=== PATIENT | female | born 1945 | race Caucasian/White ===

== ENCOUNTER 2021-09-03 10:31 | Inpatient (IN) ==
[2021-09-03] MEDS ORDERED: SODIUM CHLORIDE 0.9% 1000ML 1,000 ML IV ONE (11:17)
--- NOTE | 2021-09-03 11:36 | XRay Report ---
XR chest 1V portable CLINICAL HISTORY: Atypical chest pain. COMPARISON STUDY: Chest radiograph August 18, 2021. Chest CT June 11, 2021. PET/CT July 16, 2021. FINDINGS: Left internal jugular [id number] is in place. Cardiac size is normal. Mediastinal contou rs are normal. Left pneumothorax shown on prior exam has resolved. No consolidation to suggest pneumo pedrito. The small left lower lobe pulmonary nodule shown on prior PET/CT is not evident on this exam, po ssibly due to technique. IMPRESSION: No acute cardiopulmonary findings. ACT 112: Negative or not required by law. Electronically signed by: Leo Vallejo M.D. 09/03/2021 11:34 AM
[2021-09-03 12:24] LABS: Basophils # (auto) 0.04 K/uL (0-0.2); Basophils % (auto) 0.5 %; Eosinophils # (auto) 0.23 K/uL (0-0.5); Hematocrit (blood only) 45.1 % (37-47); Hemoglobin 14.6 g/dL (12.0-16.0); Immature Granulocytes # (auto) 0.01 K/uL (0.00-0.02); Immature Granulocytes % (auto) 0.1 %; Lymphocytes # (auto) 0.71 K/uL (1.2-3.4); Lymphocytes % (auto) 9.1 %; Mean Corpuscular Hemoglobin 30.5 pg (25-34); Mean Corpuscular Hgb Conc 32.4 g/dL (32-36); Mean Corpuscular Volume 94.2 fL (80-100); Mean Platelet Volume 11.5 fL (7.4-10.4); Monocytes # (auto) 0.45 K/uL (0.11-0.59); Monocytes % (auto) 5.8 %; Neutrophils # (auto) 6.32 K/uL (1.4-6.5); Neutrophils % (auto) 81.5 %; Platelet Count 215 K/uL (130-400); RDW Coefficient of Variation 18.9 % (11.5-14.5); RDW Standard Deviation 64.8 fL (36.4-46.3); Red Blood Count 4.79 M/uL (4.2-5.4); White Blood Count 7.76 K/uL (4.8-10.8)
--- NOTE | 2021-09-03 12:36 | CT Scan Report ---
CT OF THE HEAD WITHOUT CONTRAST CLINICAL HISTORY: ams, fall COMPARISON STUDY: MRI of the brain January 03, 2020. CT DOSE: 537.48 mGy.cm TECHNIQUE: Helical axial images of the head were obtained without IV contrast. Automated exposure con trol was utilized for the study. A dose lowering technique was utilized adhering to the principles o f ALARA. FINDINGS: No acute intracranial hemorrhage is present. Ventricular system is unremarkable. Basal cist erns are patent. There are no extra axial collections. A 1.3 cm left occipital lobe hypodensity on ax ial image 13 of 28 is noted. There is an equivocal small hypodensity within left frontal lobe on axia l image 18. This may be artifactual. There is no significant mass effect. No midline shift. No signif icant calvarial abnormalities. Minimal polypoid sinus mucosal thickening is present. IMPRESSION: 1. No acute intracranial hemorrhage or mass effect. 2. 1.3 cm left occipital lobe hypodensity. This finding is nonspecific and differential consideratio ns include an age indeterminate infarct although this does not appear to extend to the cortex. An und erlying lesion cannot be excluded given the history of malignancy. An MRI of the brain with and witho ut contrast is recommended for further evaluation. 3. Small left frontal lobe hypodensity which is likely artifactual but can be assessed on follow-up M RI. ACT 112: Negative or not required by law. Electronically signed by: Leo Vallejo M.D. 09/03/2021 12:34 PM
[2021-09-03 12:44] LABS: INR 1.1 (0.9-1.1); Prothrombin Time 11.5 Seconds (9.0-12.0)
[2021-09-03 12:47] LABS: Thyroid Stimulating Hormone 4.783 uIu/ml (0.300-4.500); Troponin I High Sensitivity 76.7 pg/ml (0-14)
[2021-09-03 12:50] LABS: Albumin Globulin Ratio 1.5 (0.9-2); Albumin Level 4.1 gm/dl (3.4-5.0); BUN Creatinine Ratio 15.4 (10-20); Bilirubin,Total 0.8 mg/dl (0.2-1.0); Calcium 10.4 mg/dl (8.5-10.1); Creatinine Clr Calc Pharmacy 50.1 ml/min; Est GFR (African American) 71.5 ml/min; Est GFR (Non-African American) 61.7 ml/min; Globulin 2.8 gm/dl (2.5-4.0); Phosphorus 3.1 mg/dl (2.5-4.9); Potassium 3.9 mmol/L (3.5-5.1); Total Protein 6.9 gm/dl (6.0-8.3)
[2021-09-03 13:19] LABS: T4 Free Thyroxine 0.81 ng/dl (0.61-1.60)
--- NOTE | 2021-09-03 14:46 | Emergency Department Note ---
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 She reports her mother was doing okay yesterday and describes that she had been treated with IV fluids and oral medications to lower her calcium this past week. Otherwise denied fevers, chills, cough congestion, GI or symptoms. Patient reports that the patient's mental status is not yet back to baseline as she has appeared confused at times and has word finding difficulties which is what had led them to diagnose her with hypercalcemia this past week. On arrival, the patient is fatigued appearing but no distress, afebrile stable vital signs. She is alert and oriented to self place time and situation. She does have intermittent difficulty with word finding but no overt aphasia. She appears clinically dry. She has no focal motor deficits. EKG without overt acute ischemia. Chest x-ray negative for acute cardiopulmonary process. WBC, H/H and platelets within normal limits. Chemistry without metabolic acidosis. Magnesium is 1.0 with repletion initiated. Calcium is 10.4, improved from 11.82 days ago. Electrolytes otherwise without significant abnormality. CPK was within normal limits. Initial high-sensitivity troponin was elevated at 76.7, nonspecific. TSH is 4.7 however free T4 within normal limits. Lipase is not elevated. Covid-19 RNA, NAAT negative. CT of the head demonstrates a nonspecific 1.3 cm left occipital hypodensity whic h may represent an age indeterminate infarct however given the patient's metastatic cancer malignancy is also considered. Acute CVA less likely given symptoms have been fluctuating this week and did improve upon treatment of hypercalcemia. The patient's fall with change in mental status from baseline in the setting of her electrolyte abnormalities and elevated troponin reasonable to admit the karli ent for further management. Case was d/w LILIA Sood hospitalist who will evaluate the patient for admission. Triage Nursing notes reviewed and agree them. Prior medical records reviewed Vital Signs: reviewed and remarkable for no significant abnormalities Differential diagnosis: Infection, dehydration, metabolic abnormality, hypo/hyperglycemia, electrolyte disturbance, anemia, hypoxia, cardiac sources, intracerebral event, toxicologic, neurologic, as well as other pathologies. ER treatment provided: See below. Diagnostics interpreted by me: ECG: Sinus tachycardia, 108 bpm, PSVC's, no overt ST elevation or depression, QTC 450, QRS 80. Cardiac Monitoring: An order for continuous cardiac monitoring was placed and demonstrated Sinus tachycardia, 108 bpm, PSVC's Laboratory studies: See below Imaging studies: See below Consultation(s): LILIA Sood hospitalist who will evaluate the patient for admission. 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 She reports her mother was doing okay yesterday and describes that she had been treated with IV fluids and oral medications to lower her calcium this past week. Otherwise denied fevers, chills, cough congestion, GI or symptoms. Patient reports that the patient's mental status is not yet back to baseline as she has appeared confused at times and has word finding difficulties which is what had led them to diagnose her with hypercalcemia this past week. ROS: See above HPI for pertinent positives & negatives. A total of 10 systems reviewed and were otherwise negative. VITALS:See Below PHYSICAL EXAMINATION: GENERAL: Awake, alert, fatigued-appearing, in no distress HENT: Normocephalic, atraumatic. Oropharynx with dry mucous membranes and otherwise unremarkable. EYES: Normal conjunctiva. Sclera non-icteric. EOMI. No nystamgus. PEARRL. NECK: Supple. No nuchal rigidity. FROM. No JVD. RESPIRATORY: Clear to auscultation. CARDIAC: Regular rate, normal rhythm. Extremities warm and well perfused. Pulses equal. ABDOMEN: Soft, non-distended. No tenderness to palpation. No rebound or guarding. No masses. RECTAL: Deferred. MUSCULOSKELETAL: Chest examination reveals no tenderness. The back is symmetrical on inspection without obvious abnormality. No midline CTL spine tenderness to palpation or step-offs. There is no CVA tenderness to palpation. No joint edema. Pelvis is stable with hips with full range of motion. LOWER EXTREMITIES: Calves are equal size bilaterally and non-tender. No edema. No discoloration. NEURO: Alert and oriented to self place and situation, though mildly confused. Intermittent difficulty with word finding but no overt aphasia. No focal motor deficits. SKIN: Mild erythema of the mid thoracic region and base of the neck which is blanchable and nontender. No rash or jaundice noted. ED COURSE: Critical Care: I have personally spent greater than 35 minutes of critical care time in the direct management of this patient. This includes bedside care, interpretation of diagnostic studies, and testing, discussion with consultants, patient, and family members, and other required patient management activities. This 35 minutes is in excess of all separately billable procedures. Pino Wood MD Past Med/Surg History Medical History Anxiety no medications Carcinoma of ovary, stage 4 Has had MRI & PET scans. Depression no medications DVT (deep venous thrombosis) Left leg. Dx'ed November 2019. On Eliquis Dyspnea Endometrial adenocarcinoma Left hip pain Lung nodule Mediastinal lymphadenopathy Metastatic cancer to lung Multiple pulmonary nodules determined by computed tomography of lung Presumed metastatic disease Peritoneal carcinomatosis Pneumothorax Shortness of breath on exertion Shortness of breath on exertion Surgical History History of arthroscopy of right knee History of bronchoscopy with lymph biopsy History of colonoscopy History of tonsillectomy History of tooth extraction Port-A-Cath in place (01/17/20) Insertion of Mediport with Fluoroscopy Dr. Thomas 01/17/20 Family History Mother Colorectal cancer Other Cancer No family history of adverse response to anesthesia Social History Smoking Status: Former smoker Tobacco Type: Cigarettes packs per day: 1; Years Smoked: 40; Cigarettes Per Day: 20; Number of Years Since Quit: 8; Second Hand Exposure: No; Hx Alcohol Use: Yes (Stopped when placed on Eliquis) Alcohol type: wine Hx Substance Use: No Preferred Language: Khmer Communication Ability: Effective Internet Media Planner Required: No Beliefs That Will Affect Care: None Current Living Situation: Spouse Current Living Situation Comment: [facility] current occupational status: retired How many Children do You have: 2 Feels Safe at Home: Yes Assistive Devices: Glasses Allergies Allergies Allergy/AdvReac Type Severity Reaction Status Date / Time No Known Allergies Allergy Verified 09/03/21 15:43 Home Meds Home Medications Medication Instructions Recorded Confirmed calcium carbonate 200 mg calcium 200 mg PO BID PRN 12/18/19 09/03/21 (500 mg) chewable tablet (Tums) cetirizine 10 mg tablet (Zyrtec) 10 mg PO QAM PRN 12/18/19 09/03/21 diphenhydramine 25 1 tab PO HS PRN tab 12/18/19 09/03/21 mg-acetaminophen 500 mg tablet (Tylenol PM Extra Strength) multivitamin 1 tab PO QAM 12/18/19 09/03/21 apixaban 5 mg tablet (Eliquis) 5 mg PO BID 01/11/20 09/03/21 metronidazole 1 % topical cream 1 applic TOPICAL DAILY PRN 01/11/20 09/03/21 (Noritate) albuterol sulfate 90 mcg/actuation 1 - 2 inh INHALATION QID PRN 09/03/21 09/03/21 breath activated powder inhaler alprazolam 0.5 mg tablet 0.5 mg PO .DAILY UD 09/03/21 09/03/21 fluticasone propionate 50 2 spray INTRANASAL DAILY PRN 09/03/21 09/03/21 mcg/actuation nasal spray,suspension (Flonase Allergy Relief) lenvatinib 20 mg/day (10 mg x 2) 40 mg PO DAILY 09/03/21 09/03/21 capsule (Lenvima) oxycodone 5 mg tablet 5 mg PO Q4 PRN 09/03/21 09/03/21 Results & Data (ED) Vital Signs Vital Signs - 24 hr 09/03/21 10:37 09/03/21 10:54 09/03/21 11:00 Temperature 36.5 C Temperature Source Oral Pulse Rate 113 H 111 H 101 H Pulse Rate [Right Finger] Pulse Rate from SpO2 Sensor 114 H Pulse Rhythm Regular Pulse Rhythm [Right Finger] Pulse Strength Normal Pulse Strength [Right Finger] Respiratory Rate 24 20 25 H Respiratory Effort / Characteristics Non-Labored Spontaneous Respiratory Depth Normal Respiratory Pattern Regular Blood Pressure 147/93 H 138/85 Blood Pressure [Right Arm] Blood Pressure Mean 111 102 Blood Pressure Mean [Right Arm] Blood Pressure Position Sitting Blood Pressure Position [Right Arm] Pulse Oximetry 95 96 Oxygen Delivery Method Room Air Sepsis Recent Fever Within 48 Hours No Sepsis New/Unexplained Change in Mental Status N/A Sepsis Action Taken by Nursing No Action Required 09/03/21 11:20 09/03/21 11:30 09/03/21 11:39 Temperature Temperature Source Pulse Rate 101 H 93 H Pulse Rate [Right Finger] Pulse Rate from SpO2 Sensor 88 Pulse Rhythm Pulse Rhythm [Right Finger] Pulse Strength Pulse Strength [Right Finger] Respiratory Rate 23 20 Respiratory Effort / Characteristics Respiratory Depth Respiratory Pattern Blood Pressure 123/78 Blood Pressure [Right Arm] Blood Pressure Mean 93 Blood Pressure Mean [Right Arm] Blood Pressure Position Blood Pressure Position [Right Arm] Pulse Oximetry 91 Oxygen Delivery Method Room Air Sepsis Recent Fever Within 48 Hours Sepsis New/Unexplained Change in Mental Status Sepsis Action Taken by Nursing 09/03/21 12:00 09/03/21 12:30 09/03/21 15:00 Temperature Temperature Source Pulse Rate 85 86 Pulse Rate [Right Finger] 87 Pulse Rate from SpO2 Sensor 89 Pulse Rhythm Pulse Rhythm [Right Finger] Regular Pulse Strength Pulse Strength [Right Finger] Normal Respiratory Rate 21 22 19 Respiratory Effort / Characteristics Non-Labored Respiratory Depth Normal Respiratory Pattern Regular Blood Pressure 123/68 Blood Pressure [Right Arm] 111/83 Blood Pressure Mean 86 Blood Pressure Mean [Right Arm] 92 Blood Pressure Position Blood Pressure Position [Right Arm] Lying Pulse Oximetry 93 95 Oxygen Delivery Method Room Air Sepsis Recent Fever Within 48 Hours Sepsis New/Unexplained Change in Mental Status Sepsis Action Taken by Nursing 09/03/21 17:00 Temperature Temperature Source Pulse Rate Pulse Rate [Right Finger] 77 Pulse Rate from SpO2 Sensor Pulse Rhythm Pulse Rhythm [Right Finger] Regular Pulse Strength Pulse Strength [Right Finger] Normal Respiratory Rate 18 Respiratory Effort / Characteristics Non-Labored Respiratory Depth Normal Respiratory Pattern Regular Blood Pressure Blood Pressure [Right Arm] 113/62 Blood Pressure Mean Blood Pressure Mean [Right Arm] 79 Blood Pressure Position Blood Pressure Position [Right Arm] Lying Pulse Oximetry 97 Oxygen Delivery Method Room Air Sepsis Recent Fever Within 48 Hours Sepsis New/Unexplained Change in Mental Status Sepsis Action Taken by Nursing Laboratory Data Attestation: I reviewed the patient's lab results. Result diagrams: 09/03/21 Unknown 09/03/21 Unknown Lab Results 09/03/21 09/03/21 09/03/21 Range/Units 15:48 16:25 Unknown WBC (4.8-10.8) K/uL RBC (4.2-5.4) M/uL Hgb (12.0-16.0) g/dL Hct (37-47) % MCV (80-100) fL MCH (25-34) pg MCHC (32-36) g/dL RDW Std Deviation (36.4-46.3) fL RDW Coeff of Colleen (11.5-14.5) % Plt Count (130-400) K/uL MPV (7.4-10.4) fL Immature Gran % (Auto) % Neut % (Auto) % Lymph % (Auto) % Wetzel % (Auto) % Eos % (Auto) % Baso % (Auto) % Neut # (Auto) (1.4-6.5) K/uL Lymph # (Auto) (1.2-3.4) K/uL Wetzel # (Auto) (0.11-0.59) K/uL Eos # (Auto) (0-0.5) K/uL Baso # (Auto) (0-0.2) K/uL Immature Gran # (Auto) (0.00-0.02) K/uL PT (9.0-12.0) Seconds INR (0.9-1.1) Sodium 137 (136-145) mmol/L Potassium 3.9 (3.5-5.1) mmol/L Chloride 100 (98-107) mmol/L Carbon Dioxide 24 (21-32) mmol/L Anion Gap 13 H (3-11) BUN 14 (6-23) mg/dl Creatinine 0.91 (0.6-1.2) mg/dl Est Cr Clr Drug Dosing 50.1 ml/min Est GFR ( Amer) 71.5 ml/min Est GFR (Non-Af Amer) 61.7 ml/min BUN/Creatinine Ratio 15.4 (10-20) Glucose 84 (70-99(Fasting)) mg/dl Calcium 10.4 H (8.5-10.1) mg/dl Ionized Calcium 1.22 (1.12-1.32) mmol/L Phosphorus 3.1 (2.5-4.9) mg/dl Magnesium 1.0 L (1.7-2.4) mg/dl Total Bilirubin 0.8 (0.2-1.0) mg/dl AST 39 (13-39) U/L ALT 27 (7-52) U/L Alkaline Phosphatase 112 H (34-104) U/L Total Creatine Kinase 89 (26-192) U/L Troponin I High Sens 76.7 H* (0-14) pg/ml Total Protein 6.9 (6.0-8.3) gm/dl Albumin 4.1 (3.4-5.0) gm/dl Globulin 2.8 (2.5-4.0) gm/dl Albumin/Globulin Ratio 1.5 (0.9-2) Lipase 28 (11-82) U/L TSH (0.300-4.500) uIu/ml Free T4 (0.61-1.60) ng/dl SARS-CoV-2, RNA, NAAT NEGATIVE (NEGATIVE) 09/03/21 09/03/21 09/03/21 Range/Units Unknown Unknown Unknown WBC 7.76 (4.8-10.8) K/uL RBC 4.79 (4.2-5.4) M/uL Hgb 14.6 (12.0-16.0) g/dL Hct 45.1 (37-47) % MCV 94.2 (80-100) fL MCH 30.5 (25-34) pg MCHC 32.4 (32-36) g/dL RDW Std Deviation 64.8 H (36.4-46.3) fL RDW Coeff of Colleen 18.9 H (11.5-14.5) % Plt Count 215 (130-400) K/uL MPV 11.5 H (7.4-10.4) fL Immature Gran % (Auto) 0.1 % Neut % (Auto) 81.5 % Lymph % (Auto) 9.1 % Wetzel % (Auto) 5.8 % Eos % (Auto) 3.0 % Baso % (Auto) 0.5 % Neut # (Auto) 6.32 (1.4-6.5) K/uL Lymph # (Auto) 0.71 L (1.2-3.4) K/uL Wetzel # (Auto) 0.45 (0.11-0.59) K/uL Eos # (Auto) 0.23 (0-0.5) K/uL Baso # (Auto) 0.04 (0-0.2) K/uL Immature Gran # (Auto) 0.01 (0.00-0.02) K/uL PT 11.5 (9.0-12.0) Seconds INR 1.1 (0.9-1.1) Sodium (136-145) mmol/L Potassium (3.5-5.1) mmol/L Chloride (98-107) mmol/L Carbon Dioxide (21-32) mmol/L Anion Gap (3-11) BUN (6-23) mg/dl Creatinine (0.6-1.2) mg/dl Est Cr Clr Drug Dosing ml/min Est GFR ( Amer) ml/min Est GFR (Non-Af Amer) ml/min BUN/Creatinine Ratio (10-20) Glucose (70-99(Fasting)) mg/dl Calcium (8.5-10.1) mg/dl Ionized Calcium (1.12-1.32) mmol/L Phosphorus (2.5-4.9) mg/dl Magnesium (1.7-2.4) mg/dl Total Bilirubin (0.2-1.0) mg/dl AST (13-39) U/L ALT (7-52) U/L Alkaline Phosphatase (34-104) U/L Total Creatine Kinase (26-192) U/L Troponin I High Sens (0-14) pg/ml Total Protein (6.0-8.3) gm/dl Albumin (3.4-5.0) gm/dl Globulin (2.5-4.0) gm/dl Albumin/Globulin Ratio (0.9-2) Lipase (11-82) U/L TSH 4.783 H (0.300-4.500) uIu/ml Free T4 0.81 (0.61-1.60) ng/dl SARS-CoV-2, RNA, NAAT (NEGATIVE) Administered Medications Discontinued Medications Sodium Chloride (Nss 1000ml) 1,000 mls @ 999 mls/hr IV .Q1H1M ONE Stop: 09/03/21 12:17 Last Infusion: 09/03/21 12:43 Dose: 0 mls/hr Documented by: [id number] Admin: 09/03/21 11:42 Dose: 999 mls/hr Documented by: [id number] Magnesium Sulfate/Dextrose (Magnesium Sulfate / D5w) 1 gm in 100 mls @ 100 mls/hr IV Q1H CODY Stop: 09/03/21 16:40 Last Admin: 09/03/21 16:43 Dose: 100 mls/hr Documented by: [id number] Infusion: 09/03/21 16:43 Dose: 100 mls/hr Documented by: [id number] Admin: 09/03/21 15:52 Dose: 100 mls/hr Documented by: [id number] Imaging Data Radiologist's Impression: Head CT 09/03/21 11:14 CT OF THE HEAD WITHOUT CONTRAST CLINICAL HISTORY: ams, fall COMPARISON STUDY: MRI of the brain January 03, 2020. CT DOSE: 537.48 mGy.cm TECHNIQUE: Helical axial images of the head were obtained without IV contrast. Automated exposure control was utilized for the study. A dose lowering technique was utilized adhering to the principles of ALARA. FINDINGS: No acute intracranial hemorrhage is present. Ventricular system is unremarkable. Basal cisterns are patent. There are no extra axial collections. A 1.3 cm left occipital lobe hypodensity on axial image 13 of 28 is noted. There is an equivocal small hypodensity within left frontal lobe on axial image 18. This may be artifactual. There is no significant mass effect. No midline shift. No significant calvarial abnormalities. Minimal polypoid sinus mucosal thickening is present. IMPRESSION: 1. No acute intracranial hemorrhage or mass effect. 2. 1.3 cm left occipital lobe hypodensity. This finding is nonspecific and differential considerations include an age indeterminate infarct although this does not appear to extend to the cortex. An underlying lesion cannot be excluded given the history of malignancy. An MRI of the brain with and without contrast i s recommended for further evaluation. 3. Small left frontal lobe hypodensity which is likely artifactual but can be assessed on follow-up MRI. ACT 112: Negative or not required by law. Electronically signed by: Leo Vallejo M.D. 09/03/2021 12:34 PM Chest X-Ray 09/03/21 11:15 XR chest 1V portable CLINICAL HISTORY: Atypical chest pain. COMPARISON STUDY: Chest radiograph August 18, 2021. Chest CT June 11, 2021. PET/CT July 16, 2021. FINDINGS: Left internal jugular [id number] is in place. Cardiac size is normal. Mediastinal contours are normal. Left pneumothorax shown on prior exam has resolved. No consolidation to suggest pneumonia. The small left lower lobe pulmonary nodule shown on prior PET/CT is not evident on this exam, possibly due to technique. IMPRESSION: No acute cardiopulmonary findings. ACT 112: Negative or not required by law. Electronically signed by: Leo Vallejo M.D. 09/03/2021 11:34 AM Hip/Pelvis X-Ray 09/03/21 16:19 XR hip RT 2V w pelvis CLINICAL HISTORY: Fall, right hip pain TECHNIQUE: 2 views of the right hip and single frontal view of the pelvis were obtained. Comparison: Comparison is made to hip radiographs 12/05/2019 FINDINGS: There is no evidence of an acute fracture. Joint spaces are well-preserved. No soft tissue abnormality is seen. IMPRESSION: No evidence of acute osseous injury. ACT 112: Negative or not required by law. Electronically signed by: Alex Baez M.D. 09/03/2021 5:07 PM Discharge Plan Visit Data Chief Complaint: Weakness ED Provider: Pino Wood Discharge Problem: Altered mental status, Serum calcium elevated, Elevated troponin, Hypomagnesemia, Metastatic disease Forms Stand Alone Forms: [employer] Prescriptions Prescriptions: No Action cetirizine [Zyrtec] 10 mg tablet 10 mg PO QAM PRN (Reason: allergies) RF: 0 multivitamin Tablet 1 tab PO QAM RF: 0 calcium carbonate [Tums] 200 mg calcium (500 mg) tablet,chewable 200 mg PO BID PRN (Reason: Indigestion) RF: 0 diphenhydramine-acetaminophen [Tylenol PM Extra Strength] 25-500 mg tablet 1 tab PO HS PRN (Reason: Sleep) RF: 0 Eliquis 5 mg tablet 5 mg PO BID RF: 0 Noritate 1 % cream 1 applic topical DAILY PRN (Reason: ..) RF: 0 fluticasone propionate [Flonase Allergy Relief] 50 mcg/actuation spray,suspension 2 spray intranasal DAILY PRN (Reason: allergies) RF: 0 albuterol sulfate 90 mcg/actuation aerosol powdr breath activated 1 - 2 inh inhalation QID PRN (Reason: shortness of breath or wheezing) RF: 0 alprazolam 0.5 mg tablet 0.5 mg PO .DAILY UD RF: 0 oxycodone 5 mg tablet 5 mg PO Q4 PRN (Reason: Pain) RF: 0 Lenvima 20 mg/day (10 mg x 2) capsule 40 mg PO DAILY RF: 0 Referrals Referrals: Lucinda Smith MD [Primary Care Provider] - Discharge Problem: Altered mental status Qualifiers: Altered mental status type: unspecified Qualified Code(s): R41.82 - Altered mental status, unspecified Metastatic disease Qualifiers: Area of secondary neoplastic involvement: unspecified site Qualified Code(s): C79.9 - Secondary malignant neoplasm of unspecified site
--- NOTE | 2021-09-03 15:43 | Electrocardiogram Report ---
Test Reason : Blood Pressure : / mmHG Vent. Rate : 108 BPM Atrial Rate : 108 BPM P-R Int : 168 ms QRS Dur : 080 ms QT Int : 336 ms P-R-T Axes : 067 014 067 degrees QTc Int : 450 ms Sinus tachycardia with Premature supraventricular complexes Otherwise normal ECG When compared with ECG of 18-JUL-2021 15:34, No significant change was found Confirmed by Jimmie Waller ([id number]) on 09/03/2021 3:43:04 PM Referred By: REFERRED SELF Confirmed By:Doug Waller
[2021-09-03] MEDS: MAGNESIUM SULFATE / D5W 1 GM/100 ML BAG IV SCH ×2 (15:52→16:43)
--- NOTE | 2021-09-03 16:19 | History & Physical Report ---
Date of Service September 03, 2021 Assessment & Plan (1) Fall: Plan: Unclear etiology as it was unwitnessed and patient has no recollection of events. Ddx includes mechanical fall, seizure, arrhythmia, OR. CVA seems unlikely given non-focal exam today. - Telemetry - MRI brain for new lesion on CT head - Repeat troponin at 6 hours. If unchanged, no further pursuit. - Right hip x-rays - PT/OT - Monitor (2) Hypercalcemia: Plan: Presumed due to her gynecologic cancer. Per patient's daughter, received IV fluids and possibly bisphosphonate therapy at [facility] yesterday. - Will check ionized calciums for next several to be sure it is coming down. - Have reached out to patient's oncologist (Dr. Ellis) for further recs - Per her recs, will get CT c/a/p for restaging. Agrees with MRI. No further needs for calcium at this time. (3) Endometrial adenocarcinoma: Plan: Diagnosed in 12/2019 after DVT. Underwent 6 cycles of treatment with carbo/taxol. Now, I believe she is on Doxil/bevacizumab. Follows with Dr. Ellis, but has also seen [facility] as well. - Discussed case with Dr. Ellis - Actually unclear what the primary here is -> Thought to be ovarian, but oncologist thinks endometrial. - Presently continue care. A brain metastasis would *not* be a contraindication to anticoagulation. (4) Elevated troponin: Plan: Troponin mildly elevated at 77. Patient denies chest pain, palpitations, or other cardiac symptoms. EKG without any ischemic features. - Trend troponin & EKGs (5) Dysuria: Plan: Patient reports dysuria, and daughter reports some incontinence of both bladder and bowel. Unclear timeline for the dysuria though as the patient cannot recall and gets mixed up easily. - UA pending (6) DVT (deep venous thrombosis): Plan: Diagnosed in 09/2019. She has tolerated Eliquis since then. - Continue Plan: DNR/DNI - Patient confirms this long-standing wish, and daughter reports she has filled out paperwork to this effect. History of Present Illness Chief Complaint: Fall, confusion Primary Care Provider: Lucinda Smith MD 75 F w/ hx of metastatic gynecologic carcinoma cancer, LLE DVT in 09/2019 who presents with a fall at home. The patient has no recollection of this fall and says she simply "slipped on the floor." The daughter reports that she entered the patient's room around 9:30am and found her behind the heater. The patient was confused at that time, but kind of had waxing and waning confusion where she would be lucid at times and then confused after. On my interview, the patient is oriented to self only. She does know she is in a hospital, but is not sure which one and is not sure what city or state she is in. When asked the year, she gets flustered, and eventually answers she is in the hospital. On full ROS, she reports that she has had some right hip pain since the fall. The patient also notes some dysuria, but then confuses it with constipation as she explains that she has been taking Miralax for this. Her daughter reports that the constipation is an ongoing issue, but has not been informed of the dysuria. Allergies Allergy/AdvReac Type Severity Reaction Status Date / Time No Known Allergies Allergy Verified 09/03/21 15:43 Home Medications Medication Instructions Recorded Confirmed Type calcium carbonate 200 mg calcium 200 mg PO BID PRN 12/18/19 09/03/21 History (500 mg) chewable tablet (Tums) cetirizine 10 mg tablet (Zyrtec) 10 mg PO QAM PRN 12/18/19 09/03/21 History diphenhydramine 25 1 tab PO HS PRN tab 12/18/19 09/03/21 History mg-acetaminophen 500 mg tablet (Tylenol PM Extra Strength) multivitamin 1 tab PO QAM 12/18/19 09/03/21 History apixaban 5 mg tablet (Eliquis) 5 mg PO BID 01/11/20 09/03/21 History metronidazole 1 % topical cream 1 applic TOPICAL DAILY PRN 01/11/20 09/03/21 History (Noritate) albuterol sulfate 90 mcg/actuation 1 - 2 inh INHALATION QID PRN 09/03/21 09/03/21 History breath activated powder inhaler alprazolam 0.5 mg tablet 0.5 mg PO .DAILY UD 09/03/21 09/03/21 History fluticasone propionate 50 2 spray INTRANASAL DAILY PRN 09/03/21 09/03/21 History mcg/actuation nasal spray,suspension (Flonase Allergy Relief) lenvatinib 20 mg/day (10 mg x 2) 40 mg PO DAILY 09/03/21 09/03/21 History capsule (Lenvima) oxycodone 5 mg tablet 5 mg PO Q4 PRN 09/03/21 09/03/21 History Past Med/Surg History Medical History Anxiety no medications Carcinoma of ovary, stage 4 Has had MRI & PET scans. Depression no medications DVT (deep venous thrombosis) Left leg. Dx'ed November 2019. On Eliquis Dyspnea Endometrial adenocarcinoma Left hip pain Lung nodule Mediastinal lymphadenopathy Metastatic cancer to lung Multiple pulmonary nodules determined by computed tomography of lung Presumed metastatic disease Peritoneal carcinomatosis Pneumothorax Shortness of breath on exertion Shortness of breath on exertion Surgical History History of arthroscopy of right knee History of bronchoscopy with lymph biopsy History of colonoscopy History of tonsillectomy History of tooth extraction Port-A-Cath in place (01/17/20) Insertion of Mediport with Fluoroscopy Dr. Thomas 01/17/20 Family History Mother Colorectal cancer Other Cancer No family history of adverse response to anesthesia Social History Smoking Status: Former smoker Tobacco Type: Cigarettes packs per day: 1; Years Smoked: 40; Cigarettes Per Day: 20; Number of Years Since Quit: 8; Second Hand Exposure: No; Hx Alcohol Use: Yes (Stopped when placed on Eliquis) Alcohol type: wine Hx Substance Use: No Preferred Language: Dutch Communication Ability: Effective Coffee Break Attendant Required: No Beliefs That Will Affect Care: None Current Living Situation: Spouse Current Living Situation Comment: [facility] current occupational status: retired How many Children do You have: 2 Feels Safe at Home: Yes Assistive Devices: Glasses Review of Systems Review of Systems: All systems reviewed & are unremarkable except as noted in HPI & below Physical Exam Constitutional: WD/WN, vitals as above Eyes: EOM intact bilaterally; no conjunctival abnormality ENMT: external ear and nose normal, oropharynx normal Neck: trachea midline, no thyromegaly normal visual inspection Respiratory: normal respiratory effort, lungs clear to auscultation no respiratory distress Cardiovascular: RRR, no murmur, no edema Gastrointestinal (Abdomen): Inspection/Auscultation: abdomen normal to inspection; abdomen not distended Percussion/Palpation: abdomen soft; abdomen nontender, no guarding and abdomen not rigid Musculoskeletal: no cyanosis or clubbing, extremities motor strength 5/5 Skin: no rashes, warm and dry Neurologic: moves all extremities and awake Psychiatric: Orientation: alert, oriented to person and cooperative; + not oriented to place and + not oriented to time Results & Data Results & Data ([facility]) Vital Signs (Past 12 Hours) Vital Signs Temp Pulse Pulse Resp BP BP Pulse Ox 09/03/21 15:00 87 19 111/83 95 09/03/21 12:30 86 22 09/03/21 12:00 85 21 123/68 93 09/03/21 11:39 93 H 20 123/78 91 09/03/21 11:30 101 H 23 09/03/21 11:00 101 H 25 H 138/85 09/03/21 10:54 36.5 C 111 H 20 147/93 H 96 09/03/21 10:37 113 H 24 95 Code Status & VTE Plan VTE Prophylaxis Plan VTE Prophylaxis will be ordered: Yes PG Care Time/CCT Total # of Minutes Spent Total Time Spent with Patient: Total time spent is greater than 50% in coordination of care (as documented) at patient's floor/unit and/or counseling patient: Coding Level of Care Code 25149 Initial Inpt Care Lvl 3 Diagnoses Fall W19.XXXA Hypercalcemia E83.52 DVT (deep venous thrombosis) I82.409 Elevated troponin R77.8 Endometrial adenocarcinoma C54.1 Dysuria R30.0
--- NOTE | 2021-09-03 17:08 | XRay Report ---
XR hip RT 2V w pelvis CLINICAL HISTORY: Fall, right hip pain TECHNIQUE: 2 views of the right hip and single frontal view of the pelvis were obtained. Comparison: Comparison is made to hip radiographs 12/05/2019 FINDINGS: There is no evidence of an acute fracture. Joint spaces are well-preserved. No soft tissue abnormali ty is seen. IMPRESSION: No evidence of acute osseous injury. ACT 112: Negative or not required by law. Electronically signed by: Alex Baez M.D. 09/03/2021 5:07 PM
[2021-09-03] MEDS ORDERED: ONDANSETRON INJ 2 MG/ML 2 ML VIAL IV PRN (20:06)
[2021-09-03] MEDS ORDERED: ALBUTEROL HFA 8 GM INHALER INH PRN (20:06)
[2021-09-03] MEDS ORDERED: ACETAMINOPHEN 325 MG TAB PO PRN (20:06)
[2021-09-03] MEDS ORDERED: oxyCODONE HCL IR 5 MG TAB (IMMEDIATE RELEASE) PO PRN (20:06)
[2021-09-03] MEDS: APIXABAN 5 MG TABLET PO SCH (22:27)
[2021-09-03] MEDS ORDERED: LORazepam 2 MG/1 ML VIAL IV STA (22:49)
[2021-09-04] MEDS ORDERED: GADOBUTROL 65ML VIAL IV ONE (01:05)
[2021-09-04 07:00] LABS: BUN Creatinine Ratio 21.7 (10-20); Calcium 8.8 mg/dl (8.5-10.1); Creatinine Clr Calc Pharmacy 50.8 ml/min; Est GFR (African American) 79.9 ml/min; Magnesium 1.8 mg/dl (1.7-2.4); Potassium 3.7 mmol/L (3.5-5.1)
[2021-09-04 07:09] LABS: Hematocrit (blood only) 35.1 % (37-47); Hemoglobin 11.5 g/dL (12.0-16.0); Mean Corpuscular Hemoglobin 30.4 pg (25-34); Mean Corpuscular Hgb Conc 32.8 g/dL (32-36); Mean Corpuscular Volume 92.9 fL (80-100); Mean Platelet Volume 10.4 fL (7.4-10.4); Platelet Count 140 K/uL (130-400); RDW Coefficient of Variation 19.3 % (11.5-14.5); RDW Standard Deviation 65.4 fL (36.4-46.3); Red Blood Count 3.78 M/uL (4.2-5.4); White Blood Count 4.64 K/uL (4.8-10.8)
[2021-09-04 07:38] LABS: Appearance Urine Clear (Clear); Bacteria Urine Automated Negative (Negative); Blood Urine Negative (Negative); Color Urine Dark Yellow; Epithelial Cell Urine Auto >30 /lpf (0-5); Glucose Urine UA Negative (Negative); Ketones Urine Trace (Negative); Leukocyte Esterase Urine Trace (Negative); Nitrite Urine Negative (Negative); Protein Urine Trace (Negative); Specific Gravity Urine 1.028 (1.000-1.030); Urobilinogen Urine Negative (Negative)
--- NOTE | 2021-09-04 07:42 | Hospitalist Progress Note ---
Date of Service September 04, 2021 Assessment & Plan (1) Fall: Plan: Unclear etiology as it was unwitnessed and patient has no recollection of events. Ddx includes mechanical fall, seizure, arrhythmia, MT. CVA seems unlikely given non-focal exam today. Has been sinus rhythm/SVT on monitor at times. TSH elevated but Ft4 wnl. Not on supplementation and will continue to monitor on telemetry. --Mag was 1.0 on admission, 2gm IV given and repeat 1.8. Will give 1gm IV today, monitor in AM CT head with new lesion ([employer] ca), MRI performed --> 1.3cm occiptal lesion, concerning for metastatic disease Discussed with Dr. Ellis, can arrange for outpatient radiation/oncology Trop 82--> 76.7. No further pursuit. No CP/SOb reported Hgb dropped but did get IVF, checking CTAP as below but can also eval for other bleeding. no obvious on examination. check iron/b12/folate as below Hip xrays without fracture Will check orthostatic VS PT/OT consulted -- awaiting eval. Possible home vs rehab pending how she does. Of note, typically does not use any assistive device at baseline Continue to monitor (2) Hypercalcemia: Plan: Presumed due to her gynecologic cancer. Per patient's daughter, received IV fluids and possibly bisphosphonate therapy at [facility] yesterday. Ionized ca wnl, Ca 8.8 on AM labs Have reached out to patient's oncologist (Dr. Ellis) for further recs - Per her recs, will get CT c/a/p for restaging. Agrees with MRI. No further needs for calcium at this time. --> CTAP ordered for today, currently drinking contrast Monitor in AM (3) Endometrial adenocarcinoma: Plan: Diagnosed in 12/2019 after DVT. Underwent 6 cycles of treatment with carbo/taxol. Now, I believe she is on Doxil/bevacizumab. Follows with Dr. Ellis, but has also seen [facility] as well. Discussed case with Dr. Ellis - Actually unclear what the primary here is -> Thought to be ovarian, but oncologist thinks endometrial. - Presently continue care. A brain metastasis would *not* be a contraindication to anticoagulation. --> Now with met lesions to brain on MRI, radiation to be arranged outpatient (4) Anemia: Plan: normocytic Hgb wnl on admission, dropped on repeat but did get 1L IVF and suspect some dehydration on initial labs Will check fe panel/b12/folate for completeness No obvious bleeding, CTAP as above given fall for further eval CBC in AM (5) Elevated troponin: Plan: Troponin mildly elevated at 77. Patient denies chest pain, palpitations, or other cardiac symptoms. EKG without any ischemic features. Trop decreased/unchanged on repeat. No CP. EKG w/ CP Monitor on telemetry (6) Dysuria: Plan: Patient reports dysuria, and daughter reports some incontinence of both bladder and bowel. Unclear timeline for the dysuria though as the patient cannot recall and gets mixed up easily. - UA pending, appears contaminated, monitor (7) DVT (deep venous thrombosis): Plan: Diagnosed in 09/2019. She has tolerated Eliquis since then and this has been continued Plan: DNR/DNI - Patient confirms this long-standing wish, and daughter reports she has filled out paperwork to this effect. Admission and Anticipated Discharge Date Admission Date: September 03, 2021 Subjective Patient evaluated this morning. States she knows a fall is what brought her in but doesn't really remember much as far as how she fell/feeling like her legs gave out/tripped on something/etc. Typically does not need any assistive device at home for ambulation. States this is the first day she is really eating much. Does state she feels depressed with all of the cancer diagnosis and such, not much of appetite at baseline but does endorse she sleeps well. Discussed to think about remeron for mood/appetite. Moved bowels last night but nothing today, given medications to aide in such. Currently drinking contrast for CTAP given mets to brain for staging purposes and will coordinate with heme/onc. Discussed MRI brain findings and discussion with Dr Ellis, can arrange for outpatient radiation for brain lesion. PT/OT not yet evaluated patient, but discussed will see how she does with therapy and if stable for discharge and feeling better tomorrow can consider discharge then. To update daughter Shilpi on phone this afternoon with updated findings/CT imaging results. Questions/concerns addressed at this time. She has had some elevated HR to 110s on monitor, SVT appearing at times. No palpitations, chest pain, or shortness of breath endorsed. Given additional 1gm Mag. Was 1.0 yesterday, improved to 1.8 after 2gm IV and also to assist with bowel movements. Review of Systems Review of Systems: All systems reviewed & are unremarkable except as noted in HPI & below Physical Exam Constitutional: WD/WN, vitals as above Eyes: EOM intact bilaterally; no conjunctival abnormality ENMT: external ear and nose normal, oropharynx normal Neck: trachea midline, no thyromegaly Respiratory: normal respiratory effort, lungs clear to auscultation (diminished in the bases, no w/c/r, on RA) no respiratory distress Cardiovascular: Rate/Rhythm: regular rhythm and + tachycardic (rate 106bpm) Heart Sounds: normal S1 and normal S2; no gallop, no murmur and no cardiac rub Extremities: normal capillary refill; no calf tenderness Gastrointestinal (Abdomen): Inspection/Auscultation: abdomen normal to inspection; abdomen not distended Percussion/Palpation: abdomen nontender, no guarding, abdomen not rigid and + abdomen not soft Musculoskeletal: no cyanosis or clubbing, extremities motor strength 5/5 Skin: no rashes, warm and dry Neurologic: moves all extremities and awake no clonus appreciated, DTR intact Psychiatric: Orientation: alert, oriented to person, oriented to place and cooperative; + not oriented to time Genitourinary: no mcdowell Results & Data Results & Data ([facility]) Vital Signs (Past 12 Hours) Vital Signs Temp Pulse Pulse Resp BP BP Pulse Ox 09/04/21 03:18 37.3 C 84 16 123/73 93 09/04/21 00:05 36.4 C L 77 18 111/66 94 09/03/21 23:59 76 09/03/21 23:10 37.2 C 79 16 124/60 96 09/03/21 20:06 36.4 C L 77 18 111/66 94 Laboratory Results 09/04/21 09/04/21 09/04/21 Range/Units Unknown 10:11 10:11 WBC (4.8-10.8) K/uL RBC (4.2-5.4) M/uL Hgb (12.0-16.0) g/dL Hct (37-47) % MCV (80-100) fL MCH (25-34) pg MCHC (32-36) g/dL RDW Std Deviation (36.4-46.3) fL RDW Coeff of Colleen (11.5-14.5) % Plt Count (130-400) K/uL MPV (7.4-10.4) fL Immature Gran % (Auto) % Neut % (Auto) % Lymph % (Auto) % [place] % (Auto) % Eos % (Auto) % Baso % (Auto) % Neut # (Auto) (1.4-6.5) K/uL Lymph # (Auto) (1.2-3.4) K/uL [place] # (Auto) (0.11-0.59) K/uL Eos # (Auto) (0-0.5) K/uL Baso # (Auto) (0-0.2) K/uL Immature Gran # (Auto) (0.00-0.02) K/uL PT (9.0-12.0) Seconds INR (0.9-1.1) Sodium (136-145) mmol/L Potassium (3.5-5.1) mmol/L Chloride (98-107) mmol/L Carbon Dioxide (21-32) mmol/L Anion Gap (3-11) BUN (6-23) mg/dl Creatinine (0.6-1.2) mg/dl Est Cr Clr Drug Dosing ml/min Est GFR ( Amer) ml/min Est GFR (Non-Af Amer) ml/min BUN/Creatinine Ratio (10-20) Glucose (70-99(Fasting)) mg/dl Calcium (8.5-10.1) mg/dl Ionized Calcium (1.12-1.32) mmol/L Phosphorus (2.5-4.9) mg/dl Magnesium (1.7-2.4) mg/dl Iron Pending TIBC Pending Unsaturated IBC Pending Transferrin % Sat Pending Total Bilirubin (0.2-1.0) mg/dl AST (13-39) U/L ALT (7-52) U/L Alkaline Phosphatase (34-104) U/L Total Creatine Kinase (26-192) U/L Troponin I High Sens (0-14) pg/ml Total Protein (6.0-8.3) gm/dl Albumin (3.4-5.0) gm/dl Globulin (2.5-4.0) gm/dl Albumin/Globulin Ratio (0.9-2) Lipase (11-82) U/L Vitamin B12 Pending Folate Pending TSH (0.300-4.500) uIu/ml Free T4 (0.61-1.60) ng/dl Urine Color Dark Yellow Urine Appearance Clear (Clear) Urine pH 5.0 (4.5-7.5) Ur Specific [place] 1.028 (1.000-1.030) Urine Protein Trace H (Negative) Urine Glucose (UA) Negative (Negative) Urine Ketones Trace H (Negative) Urine Blood Negative (Negative) Urine Nitrite Negative (Negative) Urine Bilirubin 1+ H (Negative) Urine Urobilinogen Negative (Negative) Ur Leukocyte Esterase Trace H (Negative) Urine WBC (Auto) 10-30 H (0-5) /hpf Urine RBC (Auto) 0-4 (0-4) /hpf U Hyaline Cast (Auto) 5-10 H (0-5) /lpf U Epithel Cells (Auto) >30 H (0-5) /lpf Urine Bacteria (Auto) Negative (Negative) Urine Yeast Not Reportable SARS-CoV-2, RNA, NAAT (NEGATIVE) 09/04/21 09/04/21 09/04/21 Range/Units 07:55 06:09 06:09 WBC (4.8-10.8) K/uL RBC (4.2-5.4) M/uL Hgb (12.0-16.0) g/dL Hct (37-47) % MCV (80-100) fL MCH (25-34) pg MCHC (32-36) g/dL RDW Std Deviation (36.4-46.3) fL RDW Coeff of Colleen (11.5-14.5) % Plt Count (130-400) K/uL MPV (7.4-10.4) fL Immature Gran % (Auto) % Neut % (Auto) % Lymph % (Auto) % [place] % (Auto) % Eos % (Auto) % Baso % (Auto) % Neut # (Auto) (1.4-6.5) K/uL Lymph # (Auto) (1.2-3.4) K/uL [place] # (Auto) (0.11-0.59) K/uL Eos # (Auto) (0-0.5) K/uL Baso # (Auto) (0-0.2) K/uL Immature Gran # (Auto) (0.00-0.02) K/uL PT (9.0-12.0) Seconds INR (0.9-1.1) Sodium 135 L (136-145) mmol/L Potassium 3.7 (3.5-5.1) mmol/L Chloride 104 (98-107) mmol/L Carbon Dioxide 23 (21-32) mmol/L Anion Gap 8 (3-11) BUN 18 (6-23) mg/dl Creatinine 0.83 (0.6-1.2) mg/dl Est Cr Clr Drug Dosing 50.8 ml/min Est GFR ( Amer) 79.9 ml/min Est GFR (Non-Af Amer) 69.0 ml/min BUN/Creatinine Ratio 21.7 H (10-20) Glucose 76 (70-99(Fasting)) mg/dl Calcium 8.8 (8.5-10.1) mg/dl Ionized Calcium 1.20 Cancelled (1.12-1.32) mmol/L Phosphorus (2.5-4.9) mg/dl Magnesium 1.8 (1.7-2.4) mg/dl Iron TIBC Unsaturated IBC Transferrin % Sat Total Bilirubin (0.2-1.0) mg/dl AST (13-39) U/L ALT (7-52) U/L Alkaline Phosphatase (34-104) U/L Total Creatine Kinase (26-192) U/L Troponin I High Sens (0-14) pg/ml Total Protein (6.0-8.3) gm/dl Albumin (3.4-5.0) gm/dl Globulin (2.5-4.0) gm/dl Albumin/Globulin Ratio (0.9-2) Lipase (11-82) U/L Vitamin B12 Folate TSH (0.300-4.500) uIu/ml Free T4 (0.61-1.60) ng/dl Urine Color Urine Appearance (Clear) Urine pH (4.5-7.5) Ur Specific [place] (1.000-1.030) Urine Protein (Negative) Urine Glucose (UA) (Negative) Urine Ketones (Negative) Urine Blood (Negative) Urine Nitrite (Negative) Urine Bilirubin (Negative) Urine Urobilinogen (Negative) Ur Leukocyte Esterase (Negative) Urine WBC (Auto) (0-5) /hpf Urine RBC (Auto) (0-4) /hpf U Hyaline Cast (Auto) (0-5) /lpf U Epithel Cells (Auto) (0-5) /lpf Urine Bacteria (Auto) (Negative) Urine Yeast SARS-CoV-2, RNA, NAAT (NEGATIVE) 09/04/21 09/03/21 09/03/21 Range/Units 06:09 Unknown Unknown WBC 4.64 L 7.76 (4.8-10.8) K/uL RBC 3.78 L 4.79 (4.2-5.4) M/uL Hgb 11.5 L D 14.6 (12.0-16.0) g/dL Hct 35.1 L 45.1 (37-47) % MCV 92.9 94.2 (80-100) fL MCH 30.4 30.5 (25-34) pg MCHC 32.8 32.4 (32-36) g/dL RDW Std Deviation 65.4 H 64.8 H (36.4-46.3) fL RDW Coeff of Colleen 19.3 H 18.9 H (11.5-14.5) % Plt Count 140 215 (130-400) K/uL MPV 10.4 11.5 H (7.4-10.4) fL Immature Gran % (Auto) 0.1 % Neut % (Auto) 81.5 % Lymph % (Auto) 9.1 % [place] % (Auto) 5.8 % Eos % (Auto) 3.0 % Baso % (Auto) 0.5 % Neut # (Auto) 6.32 (1.4-6.5) K/uL Lymph # (Auto) 0.71 L (1.2-3.4) K/uL [place] # (Auto) 0.45 (0.11-0.59) K/uL Eos # (Auto) 0.23 (0-0.5) K/uL Baso # (Auto) 0.04 (0-0.2) K/uL Immature Gran # (Auto) 0.01 (0.00-0.02) K/uL PT 11.5 (9.0-12.0) Seconds INR 1.1 (0.9-1.1) Sodium (136-145) mmol/L Potassium (3.5-5.1) mmol/L Chloride (98-107) mmol/L Carbon Dioxide (21-32) mmol/L Anion Gap (3-11) BUN (6-23) mg/dl Creatinine (0.6-1.2) mg/dl Est Cr Clr Drug Dosing ml/min Est GFR ( Amer) ml/min Est GFR (Non-Af Amer) ml/min BUN/Creatinine Ratio (10-20) Glucose (70-99(Fasting)) mg/dl Calcium (8.5-10.1) mg/dl Ionized Calcium (1.12-1.32) mmol/L Phosphorus (2.5-4.9) mg/dl Magnesium (1.7-2.4) mg/dl Iron TIBC Unsaturated IBC Transferrin % Sat Total Bilirubin (0.2-1.0) mg/dl AST (13-39) U/L ALT (7-52) U/L Alkaline Phosphatase (34-104) U/L Total Creatine Kinase (26-192) U/L Troponin I High Sens (0-14) pg/ml Total Protein (6.0-8.3) gm/dl Albumin (3.4-5.0) gm/dl Globulin (2.5-4.0) gm/dl Albumin/Globulin Ratio (0.9-2) Lipase (11-82) U/L Vitamin B12 Folate TSH (0.300-4.500) uIu/ml Free T4 (0.61-1.60) ng/dl Urine Color Urine Appearance (Clear) Urine pH (4.5-7.5) Ur Specific [place]on (1.000-1.030) Urine Protein (Negative) Urine Glucose (UA) (Negative) Urine Ketones (Negative) Urine Blood (Negative) Urine Nitrite (Negative) Urine Bilirubin (Negative) Urine Urobilinogen (Negative) Ur Leukocyte Esterase (Negative) Urine WBC (Auto) (0-5) /hpf Urine RBC (Auto) (0-4) /hpf U Hyaline Cast (Auto) (0-5) /lpf U Epithel Cells (Auto) (0-5) /lpf Urine Bacteria (Auto) (Negative) Urine Yeast SARS-CoV-2, RNA, NAAT (NEGATIVE) 09/03/21 09/03/21 09/03/21 Range/Units Unknown Unknown 22:59 WBC (4.8-10.8) K/uL RBC (4.2-5.4) M/uL Hgb (12.0-16.0) g/dL Hct (37-47) % MCV (80-100) fL MCH (25-34) pg MCHC (32-36) g/dL RDW Std Deviation (36.4-46.3) fL RDW Coeff of Colleen (11.5-14.5) % Plt Count (130-400) K/uL MPV (7.4-10.4) fL Immature Gran % (Auto) % Neut % (Auto) % Lymph % (Auto) % [place] % (Auto) % Eos % (Auto) % Baso % (Auto) % Neut # (Auto) (1.4-6.5) K/uL Lymph # (Auto) (1.2-3.4) K/uL [place] # (Auto) (0.11-0.59) K/uL Eos # (Auto) (0-0.5) K/uL Baso # (Auto) (0-0.2) K/uL Immature Gran # (Auto) (0.00-0.02) K/uL PT (9.0-12.0) Seconds INR (0.9-1.1) Sodium 137 (136-145) mmol/L Potassium 3.9 (3.5-5.1) mmol/L Chloride 100 (98-107) mmol/L Carbon Dioxide 24 (21-32) mmol/L Anion Gap 13 H (3-11) BUN 14 (6-23) mg/dl Creatinine 0.91 (0.6-1.2) mg/dl Est Cr Clr Drug Dosing 50.1 ml/min Est GFR ( Amer) 71.5 ml/min Est GFR (Non-Af Amer) 61.7 ml/min BUN/Creatinine Ratio 15.4 (10-20) Glucose 84 (70-99(Fasting)) mg/dl Calcium 10.4 H (8.5-10.1) mg/dl Ionized Calcium (1.12-1.32) mmol/L Phosphorus 3.1 (2.5-4.9) mg/dl Magnesium 1.0 L (1.7-2.4) mg/dl Iron TIBC Unsaturated IBC Transferrin % Sat Total Bilirubin 0.8 (0.2-1.0) mg/dl AST 39 (13-39) U/L ALT 27 (7-52) U/L Alkaline Phosphatase 112 H (34-104) U/L Total Creatine Kinase 89 (26-192) U/L Troponin I High Sens 76.7 H* 82.4 H* (0-14) pg/ml Total Protein 6.9 (6.0-8.3) gm/dl Albumin 4.1 (3.4-5.0) gm/dl Globulin 2.8 (2.5-4.0) gm/dl Albumin/Globulin Ratio 1.5 (0.9-2) Lipase 28 (11-82) U/L Vitamin B12 Folate TSH 4.783 H (0.300-4.500) uIu/ml Free T4 0.81 (0.61-1.60) ng/dl Urine Color Urine Appearance (Clear) Urine pH (4.5-7.5) Ur Specific [place] (1.000-1.030) Urine Protein (Negative) Urine Glucose (UA) (Negative) Urine Ketones (Negative) Urine Blood (Negative) Urine Nitrite (Negative) Urine Bilirubin (Negative) Urine Urobilinogen (Negative) Ur Leukocyte Esterase (Negative) Urine WBC (Auto) (0-5) /hpf Urine RBC (Auto) (0-4) /hpf U Hyaline Cast (Auto) (0-5) /lpf U Epithel Cells (Auto) (0-5) /lpf Urine Bacteria (Auto) (Negative) Urine Yeast SARS-CoV-2, RNA, NAAT (NEGATIVE) 09/03/21 09/03/21 Range/Units 16:25 15:48 WBC (4.8-10.8) K/uL RBC (4.2-5.4) M/uL Hgb (12.0-16.0) g/dL Hct (37-47) % MCV (80-100) fL MCH (25-34) pg MCHC (32-36) g/dL RDW Std Deviation (36.4-46.3) fL RDW Coeff of Colleen (11.5-14.5) % Plt Count (130-400) K/uL MPV (7.4-10.4) fL Immature Gran % (Auto) % Neut % (Auto) % Lymph % (Auto) % [place] % (Auto) % Eos % (Auto) % Baso % (Auto) % Neut # (Auto) (1.4-6.5) K/uL Lymph # (Auto) (1.2-3.4) K/uL [place] # (Auto) (0.11-0.59) K/uL Eos # (Auto) (0-0.5) K/uL Baso # (Auto) (0-0.2) K/uL Immature Gran # (Auto) (0.00-0.02) K/uL PT (9.0-12.0) Seconds INR (0.9-1.1) Sodium (136-145) mmol/L Potassium (3.5-5.1) mmol/L Chloride (98-107) mmol/L Carbon Dioxide (21-32) mmol/L Anion Gap (3-11) BUN (6-23) mg/dl Creatinine (0.6-1.2) mg/dl Est Cr Clr Drug Dosing ml/min Est GFR ( Amer) ml/min Est GFR (Non-Af Amer) ml/min BUN/Creatinine Ratio (10-20) Glucose (70-99(Fasting)) mg/dl Calcium (8.5-10.1) mg/dl Ionized Calcium 1.22 (1.12-1.32) mmol/L Phosphorus (2.5-4.9) mg/dl Magnesium (1.7-2.4) mg/dl Iron TIBC Unsaturated IBC Transferrin % Sat Total Bilirubin (0.2-1.0) mg/dl AST (13-39) U/L ALT (7-52) U/L Alkaline Phosphatase (34-104) U/L Total Creatine Kinase (26-192) U/L Troponin I High Sens (0-14) pg/ml Total Protein (6.0-8.3) gm/dl Albumin (3.4-5.0) gm/dl Globulin (2.5-4.0) gm/dl Albumin/Globulin Ratio (0.9-2) Lipase (11-82) U/L Vitamin B12 Folate TSH (0.300-4.500) uIu/ml Free T4 (0.61-1.60) ng/dl Urine Color Urine Appearance (Clear) Urine pH (4.5-7.5) Ur Specific [place] (1.000-1.030) Urine Protein (Negative) Urine Glucose (UA) (Negative) Urine Ketones (Negative) Urine Blood (Negative) Urine Nitrite (Negative) Urine Bilirubin (Negative) Urine Urobilinogen (Negative) Ur Leukocyte Esterase (Negative) Urine WBC (Auto) (0-5) /hpf Urine RBC (Auto) (0-4) /hpf U Hyaline Cast (Auto) (0-5) /lpf U Epithel Cells (Auto) (0-5) /lpf Urine Bacteria (Auto) (Negative) Urine Yeast SARS-CoV-2, RNA, NAAT NEGATIVE (NEGATIVE) Diagnostic Findings Head CT 09/03/21 11:14 CT OF THE HEAD WITHOUT CONTRAST CLINICAL HISTORY: ams, fall COMPARISON STUDY: MRI of the brain January 03, 2020. CT DOSE: 537.48 mGy.cm TECHNIQUE: Helical axial images of the head were obtained without IV contrast. Automated exposure control was utilized for the study. A dose lowering technique was utilized adhering to the principles of ALARA. FINDINGS: No acute intracranial hemorrhage is present. Ventricular system is unremarkable. Basal cisterns are patent. There are no extra axial collections. A 1.3 cm left occipital lobe hypodensity on axial image 13 of 28 is noted. There is an equivocal small hypodensity within left frontal lobe on axial image 18. This may be artifactual. There is no significant mass effect. No midline shift. No significant calvarial abnormalities. Minimal polypoid sinus mucosal thickening is present. IMPRESSION: 1. No acute intracranial hemorrhage or mass effect. 2. 1.3 cm left occipital lobe hypodensity. This finding is nonspecific and differential considerations include an age indeterminate infarct although this does not appear to extend to the cortex. An underlying lesion cannot be excluded given the history of malignancy. An MRI of the brain with and without contrast is recommended for further evaluation. 3. Small left frontal lobe hypodensity which is likely artifactual but can be assessed on follow-up MRI. ACT 112: Negative or not required by law. Electronically signed by: Leo Vallejo M.D. 09/03/2021 12:34 PM Chest X-Ray 09/03/21 11:15 XR chest 1V portable CLINICAL HISTORY: Atypical chest pain. COMPARISON STUDY: Chest radiograph August 18, 2021. Chest CT June 11, 2021. PET/CT July 16, 2021. FINDINGS: Left internal jugular [id number] is in place. Cardiac size is normal. Mediastinal contours are normal. Left pneumothorax shown on prior exam has resolved. No consolidation to suggest pneumonia. The small left lower lobe pulmonary nodule shown on prior PET/CT is not evident on this exam, possibly due to technique. IMPRESSION: No acute cardiopulmonary findings. ACT 112: Negative or not required by law. Electronically signed by: Leo Vallejo M.D. 09/03/2021 11:34 AM Hip/Pelvis X-Ray 09/03/21 16:19 XR hip RT 2V w pelvis CLINICAL HISTORY: Fall, right hip pain TECHNIQUE: 2 views of the right hip and single frontal view of the pelvis were obtained. Comparison: Comparison is made to hip radiographs 12/05/2019 FINDINGS: There is no evidence of an acute fracture. Joint spaces are well-preserved. No soft tissue abnormality is seen. IMPRESSION: No evidence of acute osseous injury. ACT 112: Negative or not required by law. Electronically signed by: Alex Baez M.D. 09/03/2021 5:07 PM Brain MRI 09/04/21 00:25 MR brain wo/w con CLINICAL HISTORY: New brain lesion - Metastatic cancer TECHNIQUE: Multiplanar and multisequence MR images of the brain were obtained prior to and following administration of gadolinium contrast. Comparison: Comparison is made to MRI brain 01/03/2020 FINDINGS: No abnormal restricted diffusion is identified. The white matter is unremarkable . The ventricular system is normal in appearance. There is a rounded T2 isointense lesion measuring 1.2 cm in the left occipital lobe containing a thin rim of surrounding T2 signal. There is a rim of enhancement with a subtle nodular component only posterior lateral margin. This lesion was not seen on the prior exam. There is no evidence of acute intraparenchymal hemorrhage. No extra axial fluid collections are seen. The corpus callosum, pituitary gland, and cerebellar tonsils appear grossly unremarkable. Flow voids of the major intracranial arterial vessels are identified. The imaged portions of the paranasal sinuses, mastoid air cells, and orbits are unremarkable. IMPRESSION: Interval development of a enhancing left occipital lesion measuring 1.2 cm concerning for metastatic disease. ACT 112: Negative or not required by law. Electronically signed by: Alex Baez M.D. 09/04/2021 9:42 AM PG Care Time/CCT Total # of Minutes Spent Total Time Spent with Patient: Total time spent is greater than 50% in coordination of care (as documented) at patient's floor/unit and/or counseling patient: Coding Level of Care Code 55121 Subseq Hosp Care Lvl 3 Diagnoses Fall W19.XXXA Hypercalcemia E83.52 Endometrial adenocarcinoma C54.1 Elevated troponin R77.8 Dysuria R30.0 DVT (deep venous thrombosis) I82.409 Anemia D64.9
[2021-09-04 07:45] LABS: Bilirubin Urine 1+ (Negative)
[2021-09-04 08:05] LABS: RBC Urine Automated 0-4 /hpf (0-4)
[2021-09-04] MEDS: APIXABAN 5 MG TABLET PO SCH ×2 (08:20→21:01)
--- NOTE | 2021-09-04 09:44 | Magnetic Resonance Report ---
MR brain wo/w con CLINICAL HISTORY: New brain lesion - Metastatic cancer TECHNIQUE: Multiplanar and multisequence MR images of the brain were obtained prior to and following administration of gadolinium contrast. Comparison: Comparison is made to MRI brain 01/03/2020 FINDINGS: No abnormal restricted diffusion is identified. The white matter is unremarkable. The ventricular sys tem is normal in appearance. There is a rounded T2 isointense lesion measuring 1.2 cm in the left occ ipital lobe containing a thin rim of surrounding T2 signal. There is a rim of enhancement with a subt le nodular component only posterior lateral margin. This lesion was not seen on the prior exam. There is no evidence of acute intraparenchymal hemorrhage. No extra axial fluid collections are seen. The corpus callosum, pituitary gland, and cerebellar tonsils appear grossly unremarkable. Flow voids of the major intracranial arterial vessels are identified. The imaged portions of the para nasal sinuses, mastoid air cells, and orbits are unremarkable. IMPRESSION: Interval development of a enhancing left occipital lesion measuring 1.2 cm concerning for metastatic disease. ACT 112: Negative or not required by law. Electronically signed by: Alex Baez M.D. 09/04/2021 9:42 AM
[2021-09-04] MEDS: POLYETHYLENE (MIRALAX) 17 GM PACK PO SCH (10:05)
[2021-09-04] MEDS: DOCUSATE SODIUM/SENNA 50/8.6MG TAB PO SCH (10:05)
[2021-09-04] MEDS ORDERED: MAGNESIUM SULFATE / D5W 1 GM/100 ML BAG IV ONE (10:30)
--- NOTE | 2021-09-04 10:45 | Communication Note ---
Date of Service: September 04, 2021 Of note, patient did also endorse some crusting of her eyes the other morning. No pain, continued drainage. States she had used an OTC eye drop but not needed an antibiotic. Has hx allergy symptoms and agrees likely antihistamine drops. Monitor for any issues, but denied any changes in vision/worsening vision recently.
[2021-09-04] MEDS ORDERED: OPTIRAY 320 100ml IV ONE (10:47)
[2021-09-04 11:18] LABS: Folate (Folic Acid) 8.64 ng/ml (>5.38)
--- NOTE | 2021-09-04 11:23 | CT Scan Report ---
CT OF THE ABDOMEN AND PELVIS WITH CONTRAST CLINICAL HISTORY: ovarian ca, s/p fall, staging COMPARISON STUDY: CT of the abdomen and pelvis October or 03/11/2021. PET/CT July 16, 2021. TECHNIQUE: Following IV administration of 94 mL of Optiray, axial images of the abdomen and pelvis we re obtained from the lung bases to the proximal femurs. Images were reviewed in the axial, sagittal, and coronal planes. IV contrast was administered without complication. Automated exposure control wa s utilized for the study. A dose lowering technique was utilized adhering to the principles of ALARA . Oral contrast was administered. CT DOSE: 625.17 mGycm FINDINGS: Lung bases are unremarkable. No pneumatosis, free air or portal venous gas is present. Mult iple hepatic lesions are unchanged from earlier exams. These reflect cysts. There is no biliary or pa ncreatic ductal dilatation. The spleen, adrenal glands, kidneys and pancreas are unremarkable with ex ception of several subcentimeter renal lesions which are too small to characterize. There is no evide nce for a bowel obstruction. The appendix is normal. Caliber and wall thickness of small and large braden wel are normal. No abdominal or pelvic lymphadenopathy is present. Multiple small peritoneal nodules measure up to 5 mm. These have slightly decreased since PET/CT of July 16, 2021. The mixed solid and cystic left adnexal mass measures 9.6 x 6.7 cm. This has decreased in size since PET/CT of July 16 022 measured 11.4 x 9.9 cm. There is no ascites. No acute fracture or suspicious lesion within the vi sualized skeletal structures. IMPRESSION: 1. No acute traumatic findings within the abdomen or pelvis. 2. Decrease in size of the cystic and solid left adnexal mass since PET/CT of July 16, 2021. This lik arnulfo represents the primary neoplasm. 3. Slight decrease in size of several small peritoneal nodules/implants. ACT 112: Negative or not required by law. Electronically signed by: Leo Vallejo M.D. 09/04/2021 11:21 AM
[2021-09-04 11:44] LABS: Iron 39 mcg/dl (35-150); Total Iron Binding Cap Calc 313 mcg/dl (250-450); Transferrin (FE) Percent Satur 12 % (15-50); Unsaturated Iron Binding Cap 274 mcg/dl (155-355)
[2021-09-04] MEDS ORDERED: HEPARIN 100 UNIT/ML 5ML FLUSH ONE (13:11)
[2021-09-04] MEDS ORDERED: HEPARIN 100 UNIT/ML 5ML FLUSH FLUSH PRN (13:13)
[2021-09-05] MEDS: POLYETHYLENE (MIRALAX) 17 GM PACK PO SCH (08:13)
[2021-09-05] MEDS: APIXABAN 5 MG TABLET PO SCH (08:13)
[2021-09-05] MEDS: DOCUSATE SODIUM/SENNA 50/8.6MG TAB PO SCH (08:13)
--- NOTE | 2021-09-05 08:23 | Hospitalist Progress Note ---
Date of Service September 05, 2021 Assessment & Plan (1) Fall: Plan: Unclear etiology as it was unwitnessed and patient has no recollection of events. Ddx includes mechanical fall, seizure, arrhythmia, [place]. CVA seems unlikely given non-focal exam today. Has been sinus rhythm/SVT on monitor at times. TSH elevated but Ft4 wnl. Not on supplementation and will continue to monitor on telemetry. -Mag was 1.0 on admission, repleted and wnl on repeat. --> ?if afib/rvr or tachycardia/hypotension leading to event CT head with new lesion ([employer] ca), MRI performed --> 1.2cm occipital lesion, concerning for metastatic disease Discussed with Dr. Ellis, can arrange for outpatient radiation/oncology --> next --> Per daughter, someone spoke to them about steroids for edema, unclear who. Dr Ellis stated not her. Discussed with her, and despite no edema on brain MRI can consider decadron 4mg until seen next week for rad/onc Trop 82--> 76.7. No further pursuit. No CP/SOb reported Hgb dropped but did get IVF, checking CTAP as below but can also eval for other bleeding. no obvious on examination and suspect concentrated initially --> CTAP with no acute traumatic findings. Does note decrease in size of cystic/solid left adnexal mass since PET/CT July 2021. Likely represents the primary neoplasm. Slight decrease in size of several small peritoneal nodules/implants. Notified Dr Ellis of findings B12/folate without abnormality. Iron wnl, but trans % low. Checking ferritin with AM labs, elevated 2nd to reactive from malignancy? Hip xrays without fracture Will check orthostatic VS -- acceptable PT/OT consulted -- . Possible home vs rehab pending how she does. Of note, typically does not use any assistive device at baseline --> Per discussion with daughter Shilpi last evening, doesn't feel safe for d/c at home. Will await evals but they were attempting to get parents to [facility] independent living as having issues recently as well and typically they are able to help each other out. --> CM arranged for bed at [facility] portion of [facility] Multiple discussions with daughter, does not feel safe for d/c at this time and would like continued PT/OT evals and will visit /see her this afternoon. Discussed if stable/unchanged will plan for d/c tomorrow. --> Lengthy discussion undertaken this afternoon with daughter/ on phone and they requested medical portion of [place]. Discussed not asking for anything for pain really, nothing for nausea. Eating/drinking and ambulating with improvement and will monitor but unless this changed, would not see need for inpatient medical care Continue to monitor (2) Hypomagnesemia: Plan: MAG 1.0 on admission, replacement ordered and normal on repeat unclear if maybe patient had episode of afib/RVR vs cramping/weakness and fell. she did not recall events Has been NSR on monitor, no arrhythmia. On eliquis for hx DVT (3) Hypercalcemia: Plan: Presumed due to her gynecologic cancer. Per patient's daughter, received IV fluids and possibly bisphosphonate therapy at [facility] yesterday. Ionized ca wnl, Ca 8.8 on AM labs Have reached out to patient's oncologist (Dr. Ellis) for further recs -- Per her recs, will get CT c/a/p for restaging. Agrees with MRI. No further needs for calcium at this time. --> CTAP with improvement in prior findings wnl (4) Endometrial adenocarcinoma: Plan: Diagnosed in 12/2019 after DVT. Underwent 6 cycles of treatment with ca rbo/taxol. Now, I believe she is on Doxil/bevacizumab. Follows with Dr. Ellis, but has also seen [facility] as well. Discussed case with Dr. Ellis - Actually unclear what the primary here is -> Thought to be ovarian, but oncologist thinks endometrial. -- Presently continue care. A brain metastasis would *not* be a contraindication to anticoagulation. --> Now with met lesions to brain on MRI, radiation to be arranged outpatient (5) Anemia: Plan: normocytic Hgb wnl on admission, dropped on repeat but did get 1L IVF and suspect some dehydration on initial labs Will check fe panel/b12/folate for completeness -- checking ferritin as trans% sat low, iron low normal. reactive No obvious bleeding, CTAP as above given fall for further eval --NO ACUTE FINDINGS hgb stable at 11 (6) Elevated troponin: Plan: Troponin mildly elevated at 77. Patient denies chest pain, palpitations, or other cardiac symptoms. EKG without any ischemic features. Trop decreased/unchanged on repeat. No CP. EKG w/ CP Monitor on telemetry -- NSR (7) Dysuria: Plan: Patient reports dysuria, and daughter reports some incontinence of both bladder and bowel. Unclear timeline for the dysuria though as the patient cannot recall and gets mixed up easily. UA appeared contaminated. Urine cx WITHOUT GROWTH (8) DVT (deep venous thrombosis): Plan: Diagnosed in 09/2019. She has tolerated Eliquis since then and this has been continued Plan: DNR/DNI - Patient confirms this long-standing wish, and daughter reports she has filled out paperwork to this effect. Admission and Anticipated Discharge Date Admission Date: September 03, 2021 Subjective Patient evaluated this morning. Doing better. More alert. Eating/drinking, moving bowels. She states she thinks she might have hurt her back from her fall that brought her in and is tender to palpation in thoracic region. Discussed checking xray to r/o fracture. She is able to sit up in bed, range of movement intact. She states year 2021, in hospital, month is August, day is Wednesday but not sure what the exact date is. She states she would like some rehab or therapy and discussed with daughter last evening. Will message CM given she states she worked with therapy yesterday and thinks it went well. Denies any further lightheadedness/dizziness. No fever , chills, chest pain, palpitations, shortness of breath at this time. Questions/concerns addressed. Review of Systems Review of Systems: All systems reviewed & are unremarkable except as noted in HPI & below Physical Exam Constitutional: WD/WN, vitals as above Eyes: EOM intact bilaterally; no conjunctival abnormality ENMT: external ear and nose normal, oropharynx normal Neck: trachea midline, no thyromegaly Respiratory: normal respiratory effort, lungs clear to auscultation (diminished in the bases, no w/c/r, on RA) no respiratory distress Cardiovascular: Rate/Rhythm: regular rate and regular rhythm Heart Sounds: normal S1 and normal S2; no gallop, no murmur and no cardiac rub Extremities: normal capillary refill; no calf tenderness Gastrointestinal (Abdomen): Inspection/Auscultation: abdomen normal to inspection; abdomen not distended Percussion/Palpation: abdomen soft; abdomen nontender, no guarding and abdomen not rigid Musculoskeletal: tenderness to palpation thoracic spine, reproducible strength equal bilaterally 4/5 Skin: warm, dry Neurologic: moves all extremities and awake Psychiatric: Orientation: alert, oriented to person, oriented to place, oriented to time and cooperative Genitourinary: no mcdowell Results & Data Results & Data ([facility]) Vital Signs (Past 12 Hours) Vital Signs Temp Pulse Pulse Resp BP BP Pulse Ox 09/05/21 07:51 36.8 C 60 16 117/62 97 09/05/21 06:27 91 H 09/05/21 03:17 36.3 C L 94 H 18 129/58 L 95 09/04/21 23:11 36.5 C 94 H 18 129/73 94 Laboratory Results 09/05/21 09/05/21 Range/Units 09:06 09:06 WBC 4.04 L (4.8-10.8) K/uL RBC 3.57 L (4.2-5.4) M/uL Hgb 11.0 L (12.0-16.0) g/dL Hct 33.8 L (37-47) % MCV 94.7 (80-100) fL MCH 30.8 (25-34) pg MCHC 32.5 (32-36) g/dL RDW Std Deviation 67.1 H (36.4-46.3) fL RDW Coeff of Colleen 19.4 H (11.5-14.5) % Plt Count 143 (130-400) K/uL MPV 10.8 H (7.4-10.4) fL Sodium 136 (136-145) mmol/L Potassium 3.6 (3.5-5.1) mmol/L Chloride 104 (98-107) mmol/L Carbon Dioxide 25 (21-32) mmol/L Anion Gap 7 (3-11) BUN 16 (6-23) mg/dl Creatinine 0.82 (0.6-1.2) mg/dl Est Cr Clr Drug Dosing 51.6 ml/min Est GFR ( Amer) 81.1 ml/min Est GFR (Non-Af Amer) 70.0 ml/min BUN/Creatinine Ratio 19.5 (10-20) Glucose 123 H (70-99(Fasting)) mg/dl Calcium 8.4 L (8.5-10.1) mg/dl Magnesium 1.9 (1.7-2.4) mg/dl Ferritin 912.5 H (8-388) ng/ml Diagnostic Findings Thoracic Spine X-Ray 09/05/21 09:37 THORACIC SPINE 3 VIEWS HISTORY: s/p fall, back pain COMPARISON: None. FINDINGS: There is no fracture. No subluxation. Left or the Port-A-Cath terminates at the SVC. There are calcifications within the aortic knob. Paravertebral soft tissues are unremarkable. Mild to moderate degenerative disc disease throughout the thoracic spine. IMPRESSION: No fracture or subluxation within the thoracic spine. ACT 112: Negative or not required by law. Electronically signed by: Rohan Acosta M.D. 09/05/2021 10:50 AM PG Care Time/CCT Total # of Minutes Spent Total Time Spent with Patient: Total time spent is greater than 50% in coordination of care (as documented) at patient's floor/unit and/or counseling patient: Prolonged Care Time Prolonged Care Time: Yes additional total 45 minutes additional 10 minutes on phone with daughter this morning, 20minutes this afternoon and multiple trips to case management/room to update patient and coordinate discharge planning and coordination with heme/onc and radiation/oncology for follow up care Coding Level of Care Code 42079 Subseq Hosp Care Lvl 2 (25 - SIGNIFICANT, SEPARATELY IDENTIFIABLE ) Diagnoses Fall W19.XXXA Hypercalcemia E83.52 Endometrial adenocarcinoma C54.1 Anemia D64.9 Elevated troponin R77.8 Dysuria R30.0 DVT (deep venous thrombosis) I82.409 Hypomagnesemia E83.42 Additional Codes Prolonged Care Time - Prolonged Care Time: Yes ([id number])
[2021-09-05] MEDS ORDERED: LENVATINIB PO SCH (09:00)
[2021-09-05 09:20] LABS: Hematocrit (blood only) 33.8 % (37-47); Mean Corpuscular Hemoglobin 30.8 pg (25-34); Mean Corpuscular Hgb Conc 32.5 g/dL (32-36); Mean Corpuscular Volume 94.7 fL (80-100); Mean Platelet Volume 10.8 fL (7.4-10.4); Platelet Count 143 K/uL (130-400); RDW Coefficient of Variation 19.4 % (11.5-14.5); RDW Standard Deviation 67.1 fL (36.4-46.3); Red Blood Count 3.57 M/uL (4.2-5.4); White Blood Count 4.04 K/uL (4.8-10.8)
[2021-09-05 09:43] LABS: BUN Creatinine Ratio 19.5 (10-20); Calcium 8.4 mg/dl (8.5-10.1); Creatinine Clr Calc Pharmacy 51.6 ml/min; Est GFR (African American) 81.1 ml/min; Magnesium 1.9 mg/dl (1.7-2.4); Potassium 3.6 mmol/L (3.5-5.1)
[2021-09-05 09:57] LABS: Ferritin 912.5 ng/ml (8-388)
--- NOTE | 2021-09-05 10:52 | XRay Report ---
THORACIC SPINE 3 VIEWS HISTORY: s/p fall, back pain COMPARISON: None. FINDINGS: There is no fracture. No subluxation. Left or the Port-A-Cath terminates at the SVC. There are calcifications within the aortic knob. Paravertebral soft tissues are unremarkable. Mild to mode rate degenerative disc disease throughout the thoracic spine. IMPRESSION: No fracture or subluxation within the thoracic spine. ACT 112: Negative or not required by law. Electronically signed by: Rohan Acosta M.D. 09/05/2021 10:50 AM
--- NOTE | 2021-09-05 12:48 | Discharge Summary ---
Date of Service September 05, 2021 Admission HPI Per Admitting Provider 75 F w/ hx of metastatic gynecologic carcinoma cancer, LLE DVT in 09/2019 who presents with a fall at home. The patient has no recollection of this fall and says she simply "slipped on the floor." The daughter reports that she entered the patient's room around 9:30am and found her behind the heater. The patient was confused at that time, but kind of had waxing and waning confusion where she would be lucid at times and then confused after. On my interview, the patient is oriented to self only. She does know she is in a hospital, but is not sure which one and is not sure what city or state she is in. When asked the year, she gets flustered, and eventually answers she is in the hospital. On full ROS, she reports that she has had some right hip pain since the fall. The patient also notes some dysuria, but then confuses it with constipation as she explains that she has been taking Miralax for this. Her daughter reports that the constipation is an ongoing issue, but has not been informed of the dysuria. Admission Exam Per Admitting Provider Constitutional: WD/WN, vitals as above Eyes: EOM intact bilaterally; no conjunctival abnormality ENMT: external ear and nose normal, oropharynx normal Neck: trachea midline, no thyromegaly normal visual inspection Respiratory: normal respiratory effort, lungs clear to auscultation no respiratory distress Cardiovascular: RRR, no murmur, no edema Gastrointestinal (Abdomen): Inspection/Auscultation: abdomen normal to inspection; abdomen not distended Percussion/Palpation: abdomen soft; abdomen nontender, no guarding and abdomen not rigid Musculoskeletal: no cyanosis or clubbing, extremities motor strength 5/5 Skin: no rashes, warm and dry Neurologic: moves all extremities and awake Psychiatric: Orientation: alert, oriented to person and cooperative; + not oriented to place and + not oriented to time Principal Diagnosis Fall, Brain Mass, metastatic disease Discharge Exam Constitutional WD/WN, vitals as above Eyes EOM intact bilaterally; no conjunctival abnormality ENMT external ear and nose normal, oropharynx normal Neck trachea midline, no thyromegaly Respiratory normal respiratory effort, lungs clear to auscultation (diminished in the bases, no w/c/r, on RA) no respiratory distress Cardiovascular Rate/Rhythm: regular rhythm Heart Sounds: normal S1 and normal S2; no gallop, no murmur and no cardiac rub Extremities: normal capillary refill; no calf tenderness Gastrointestinal (Abdomen) Inspection/Auscultation: abdomen normal to inspection; abdomen not distended Percussion/Palpation: abdomen nontender, no guarding and abdomen not rigid Musculoskeletal no cyanosis or clubbing, extremities motor strength 5/5 slight paraspinal muscle tenderness to lumbar spine Skin no rashes, warm and dry Neurologic moves all extremities and awake Psychiatric Orientation: alert, oriented to person, oriented to place and cooperative Genitourinary no mcdowell Lymphatic no cervical lymphadenopathy Discharge Data Allergies Allergy/AdvReac Type Severity Reaction Status Date / Time No Known Allergies Allergy Verified 09/14/21 23:23 Consultations 09/03/21 14:39 ED Decision to Admit Stat Ordered Studies Head CT 09/03/21 11:14 CT OF THE HEAD WITHOUT CONTRAST CLINICAL HISTORY: ams, fall COMPARISON STUDY: MRI of the brain January 03, 2020. CT DOSE: 537.48 mGy.cm TECHNIQUE: Helical axial images of the head were obtained without IV contrast. Automated exposure control was utilized for the study. A dose lowering technique was utilized adhering to the principles of ALARA. FINDINGS: No acute intracranial hemorrhage is present. Ventricular system is unremarkable. Basal cisterns are patent. There are no extra axial collections. A 1.3 cm left occipital lobe hypodensity on axial image 13 of 28 is noted. There is an equivocal small hypodensity within left frontal lobe on axial image 18. This may be artifactual. There is no significant mass effect. No midline shift. No significant calvarial abnormalities. Minimal polypoid sinus mucosal thickening is present. IMPRESSION: 1. No acute intracranial hemorrhage or mass effect. 2. 1.3 cm left occipital lobe hypodensity. This finding is nonspecific and differential considerations include an age indeterminate infarct although this does not appear to extend to the cortex. An underlying lesion cannot be excluded given the history of malignancy. An MRI of the brain with and without contrast is recommended for further evaluation. 3. Small left frontal lobe hypodensity which is likely artifactual but can be assessed on follow-up MRI. ACT 112: Negative or not required by law. Electronically signed by: Leo Vallejo M.D. 09/03/2021 12:34 PM Chest X-Ray 09/03/21 11:15 XR chest 1V portable CLINICAL HISTORY: Atypical chest pain. COMPARISON STUDY: Chest radiograph August 18, 2021. Chest CT June 11, 2021. PET/CT July 16, 2021. FINDINGS: Left internal jugular [id number] is in place. Cardiac size is normal. Mediastinal contours are normal. Left pneumothorax shown on prior exam has resolved. No consolidation to suggest pneumonia. The small left lower lobe pulmonary nodule shown on prior PET/CT is not evident on this exam, possibly due to technique. IMPRESSION: No acute cardiopulmonary findings. ACT 112: Negative or not required by law. Electronically signed by: Leo Vallejo M.D. 09/03/2021 11:34 AM Hip/Pelvis X-Ray 09/03/21 16:19 XR hip RT 2V w pelvis CLINICAL HISTORY: Fall, right hip pain TECHNIQUE: 2 views of the right hip and single frontal view of the pelvis were obtained. Comparison: Comparison is made to hip radiographs 12/05/2019 FINDINGS: There is no evidence of an acute fracture. Joint spaces are well-preserved. No soft tissue abnormality is seen. IMPRESSION: No evidence of acute osseous injury. ACT 112: Negative or not required by law. Electronically signed by: Alex Baez M.D. 09/03/2021 5:07 PM Brain MRI 09/04/21 00:25 MR brain wo/w con CLINICAL HISTORY: New brain lesion - Metastatic cancer TECHNIQUE: Multiplanar and multisequence MR images of the brain were obtained prior to and following administration of gadolinium contrast. Comparison: Comparison is made to MRI brain 01/03/2020 FINDINGS: No abnormal restricted diffusion is identified. The white matter is unremarkable. The ventricular system is normal in appearance. There is a rounded T2 isointense lesion measuring 1.2 cm in the left occipital lobe containing a thin rim of surrounding T2 signal. There is a rim of enhancement with a subtle nodular component only posterior lateral margin. This lesion was not seen on the prior exam. There is no evidence of acute intraparenchymal hemorrhage. No extra axial fluid collections are seen. The corpus callosum, pituitary gland, and cerebellar tonsils appear grossly unremarkable. Flow voids of the major intracranial arterial vessels are identified. The imaged portions of the paranasal sinuses, mastoid air cells, and orbits are unremarkable. IMPRESSION: Interval development of a enhancing left occipital lesion measuring 1.2 cm concerning for metastatic disease. ACT 112: Negative or not required by law. Electronically signed by: Alex Baez M.D. 09/04/2021 9:42 AM Abdomen/Pelvis CT 09/04/21 07:40 CT OF THE ABDOMEN AND PELVIS WITH CONTRAST CLINICAL HISTORY: ovarian ca, s/p fall, staging COMPARISON STUDY: CT of the abdomen and pelvis October or 03/11/2021. PET/CT July 16, 2021. TECHNIQUE: Following IV administration of 94 mL of Optiray, axial images of the abdomen and pelvis were obtained from the lung bases to the proximal femurs. Images were reviewed in the axial, sagittal, and coronal planes. IV contrast was administered without complication. Automated exposure control was utilized for the study. A dose lowering technique was utilized adhering to the principles of ALARA. Oral contrast was administered. CT DOSE: 625.17 mGycm FINDINGS: Lung bases are unremarkable. No pneumatosis, free air or portal venous gas is present. Multiple hepatic lesions are unchanged from earlier exams. These reflect cysts. There is no biliary or pancreatic ductal dilatation. The spleen, adrenal glands, kidneys and pancreas are unremarkable with exception of several subcentimeter renal lesions which are too small to characterize. There is no evidence for a bowel obstruction. The appendix is normal. Caliber and wall thickness of small and large bowel are normal. No abdominal or pelvic lymphadenopathy is present. Multiple small peritoneal nodules measure up to 5 mm. These have slightly decreased since PET/CT of July 16, 2021. The mixed solid and cystic left adnexal mass measures 9.6 x 6.7 cm. This has decreased in size since PET/CT of July 16, 2021 measured 11.4 x 9.9 cm. There is no ascites. No acute fracture or suspicious lesion within the visualized skeletal structures. IMPRESSION: 1. No acute traumatic findings within the abdomen or pelvis. 2. Decrease in size of the cystic and solid left adnexal mass since PET/CT of July 16, 2021. This likely represents the primary neoplasm. 3. Slight decrease in size of several small peritoneal nodules/implants. ACT 112: Negative or not required by law. Electronically signed by: Leo Vallejo M.D. 09/04/2021 11:21 AM Thoracic Spine X-Ray 09/05/21 09:37 THORACIC SPINE 3 VIEWS HISTORY: s/p fall, back pain COMPARISON: None. FINDINGS: There is no fracture. No subluxation. Left or the Port-A-Cath terminates at the SVC. There are calcifications within the aortic knob. Paravertebral soft tissues are unremarkable. Mild to moderate degenerative disc disease throughout the thoracic spine. IMPRESSION: No fracture or subluxation within the thoracic spine. ACT 112: Negative or not required by law. Electronically signed by: Rohan Acosta M.D. 09/05/2021 10:50 AM Hospital Course (1) Fall: Unclear etiology as it was unwitnessed and patient has no recollection of events. Ddx includes mechanical fall, seizure, arrhythmia, MA. CVA seems unlikely given non-focal exam today. Has been sinus rhythm/SVT on monitor at times. TSH elevated but Ft4 wnl. Not on supplementation and will continue to monitor on telemetry. Mag was 1.0 on admission, repleted and wnl on repeat. --> ?if afib/rvr or tachycardia/hypotension leading to event but no episodes on telemetry CT head with new lesion (PROSTHETICS ASSISTANT ca), MRI performed --> 1.2cm occipital lesion, concerning for metastatic disease Discussed with Dr. Ellis, can arrange for outpatient radiation/oncology --> next --> Per daughter, someone spoke to them about steroids for edema, unclear who. Dr Ellis stated not her. Discussed with her, and despite no edema on brain MRI can consider decadron 4mg until seen next week for rad/onc. Rx sent at discharge Trop 82--> 76.7. No further pursuit. No CP/SOb reported Hgb dropped but did get IVF, checked CTAP as below but also to eval for bleeding given fall. no obvious on examination and suspect concentrated initially --> CTAP with no acute traumatic findings. Does note decrease in size of cystic/solid left adnexal mass since PET/CT July 2021. Likely represents the primary neoplasm. Slight decrease in size of several small peritoneal nodules/implants. Notified Dr Ellis of findings B12/folate without abnormality. Iron wnl, but trans % low. Checking ferritin with AM labs, elevated likely reactive 2nd to malignancy Hip xrays without fracture Will check orthostatic VS -- acceptable without orthostasis PT/OT consulted -- . Possible home vs rehab pending how she does. Of note, typically does not use any assistive device at baseline --> Per discussion with daughter Shilpi last evening, doesn't feel safe for d/c at home. Will await evals but they were attempting to get parents to [facility] independent living as having issues recently as well and typically they are able to help each other out. --> CM arranged for bed at [facility] portion of [facility] Multiple discussions with daughter, does not feel safe for d/c at this time and would like continued PT/OT evals and will visit /see her this afternoon. Discussed if stable/unchanged will plan for d/c tomorrow. --> Lengthy discussion undertaken this afternoon with daughter/ on phone and they requested [place]. Discussed not asking for anything for pain really, nothing for nausea. Eating/drinking and ambulating with improvement and will monitor but unless this changed, would not see need for inpatient medical care Got call again later that [facility] needed to take today. Daughter ok with plan and came to pick patient up. Did provide for repeat labs to be drawn at [facility] in the next 2-3 days to ensure stability (2) Hypercalcemia: Presumed due to her gynecologic cancer. Per patient's daughter, received IV fluids and possibly bisphosphonate therapy at [facility] yesterday. Ionized ca wnl, Ca 8.8 on AM labs Have reached out to patient's oncologist (Dr. Ellis) for further recs -- Per her recs, will get CT c/a/p for restaging. Agrees with MRI. No further needs for calcium at this time. --> CTAP with improvement in prior findings wnl (3) Hypomagnesemia: MAG 1.0 on admission, replacement ordered and normal on repeat unclear if maybe patient had episode of afib/RVR vs cramping/weakness and fell. she did not recall events Has been NSR on monitor. On eliquis for hx DVT If recurrent event could consider holter monitor? (4) Endometrial adenocarcinoma: Diagnosed in 12/2019 after DVT. Underwent 6 cycles of treatment with carbo/taxol. Now, I believe she is on Doxil/bevacizumab. Follows with Dr. Ellis, but has also seen [facility] as well. Discussed case with Dr. Ellis - Actually unclear what the primary here is -> Thought to be ovarian, but oncologist thinks endometrial. - Presently continue care. A brain metastasis would *not* be a contraindication to anticoagulation. --> Now with met lesions to brain on MRI, radiation to be arranged outpatient (5) Anemia: normocytic Hgb wnl on admission, dropped on repeat but did get 1L IVF and suspect some dehydration on initial labs Will check fe panel/b12/folate for completeness -- checking ferritin as trans% sat low, iron low normal No obvious bleeding, CTAP as above given fall for further eval --NO ACUTE FINDINGS hgb stable on repeat (6) Elevated troponin: Troponin mildly elevated at 77. Patient denies chest pain, palpitations, or other cardiac symptoms. EKG without any ischemic features. Trop decreased/unchanged on repeat. No CP. EKG w/ CP (7) Dysuria: Patient reported dysuria at times, and daughter reports some incontinence of both bladder and bowel. Unclear timeline for the dysuria though as the patient cannot recall and gets mixed up easily. No issues now that mentation back to baseline UA appeared contaminated. Urine cx WITHOUT GROWTH (8) DVT (deep venous thrombosis): Diagnosed in 09/2019. She has tolerated Eliquis since then and this has been continued DNR/DNI - Patient confirms this long-standing wish, and daughter reports she has filled out paperwork to this effect. Total Time Total Time Spent Total Time Spent (In Minutes): 60 Discharge Plan Discharge Items Patient Disposition: Personal Half-Way Reason For Visit: FALL, METASTATIC CANCER Discharge Diagnosis: Fall, Occipital Lobe Mass Goals: You have been hospitalized for an acute medical problem. During your stay at [facility], we have made an effort to correct the problem that brought you to the hospital while keeping you as comfortable as possible. Medications were used to bring your condition under control and your discharge instructions will include directions for any medications you should take after leaving the hospital. Please make sure you see your Primary Care Provider as part of your follow up plan. Activity: Resume your previous activity Activity Comment: advance with therapy with walker Non-emergency contact: Primary Care Provider and Oncologist Call non-emergency contact if: you have any medication questions, your symptoms worsen and your pain is not controlled Follow-up/Referrals: Gabe Yu MD [Physician] - 09/11/21 8:30 am (Consult with Dr. Gabe Yu 09/11/2021 at 8:30AM. Located on the first floor of the [facility] (Not [facility]). Check in at Patient Care Associate desk and enter through the Radiation Oncology door. If you cannot attend this appt, phone [phone].) Lucinda Smith MD [Primary Care Provider] - Lima Ellis MD [Physician] - Diet: Regular Addtl Attending Provider Instructions: You have been hospitalized for a fall. Thankfully, no fractures identified. Of note, your magnesium level was very low and this could have put you at risk for cramping leading up to the fall, as well as risk for fast heart rate/low blood pressure that could have contributed. You have been monitored on telemetry and have been in a normal sinus rhythm, but your magnesium level was replaced and this doesn't mean this was not possible. You could have also had weakness from the medications received at the cancer center for the elevated calcium levels. You have been given pain control, and CT of the head showed area concerning for metastatic disease given your history of PROSTHETICS ASSISTANT malignancy. MRI was performed which did show an occipital lobe lesion. This was discussed with Dr Ellis and she will work to arrange for outpatient radiation for treatment. We also did a CT scan of your abdomen/pelvis, which did show IMPROVEMENT in lesions/lymphadenopathy compared to study last month, which is reassuring. In either case, you have been making improvements and strength improved and worked well with therapy and arrangements have been made for [facility] at discharge. You have been provided repeat labs to be drawn on Wednesday. Berenice is able to draw these for you to ensure no further electrolyte abnormalities and that your levels stay stable. You can also use the topical Voltaren as needed for discomfort to your back (negative for fracture) and Tylenol at baseline for control. While there was no vasogenic edema on the MRI of the brain, you have been placed on decadron 4mg by mouth daily in case of event this would occur. If worsening weakness, evidence in follow up of any issues, they may consider increasing this to twice a day but be mindful this can cause swelling, as well as increased hunger/appetite. But, this may also help with maryanne pain you have been experiencing since the fall as well. Urine culture was NEGATIVE for infection. You have been sent on a bowel regimen to help keep bowels regular as constipation can also lead to weakness as well as having a vasovagal response that can cause you to pass out when straining to have a bowel movement. Case management was consulted and discussion with daughter Shilpi as discussed with you, and arrangements have been made for [facility] at discharge given need for higher level of care, especially while is also recovering. Please follow up with your PCP in the next 7-10 days to monitor your progress. Follow up with Dr Ellis this week. Please return to the ER with any fever/chills, chest pain, shortness of breath, or for any other symptoms concerning for you. It has been a pleasure being a part of the medical team providing for you while you have been in the hospital. Take care! Pending Studies at Discharge: No Stand-Alone Forms: My [facility] Skilled Items Patient informed of condition?: Yes DNR: Yes Discharge Level of Care: Other Communicable Disease: No Discharge Prognosis: Stable Lines: None Urinary Catheter: No Medications and DC Order Prescriptions: New sennosides-docusate sodium [Senokot-S] 8.6-50 mg Tablet 1 tab PO QAM Qty: 30 RF: 0 Continued multivitamin Tablet 1 tab PO QAM RF: 0 Eliquis 5 mg tablet 5 mg PO BID RF: 0 fluticasone propionate [Flonase Allergy Relief] 50 mcg/actuation spray,suspension 2 spray intranasal .EVERY 24 HOURS PRN (Reason: allergies) RF: 0 oxycodone 5 mg tablet 5 mg PO Q4 PRN (Reason: pain level 6-10) RF: 0 Lenvima 20 mg/day (10 mg x 2) capsule 20 mg PO QPM RF: 0 No Action cetirizine [Zyrtec] 10 mg Tablet 10 mg PO . Q 24 HOURS PRN (Reason: allergies) RF: 0 sennosides-docusate sodium [Senokot-S] 8.6-50 mg Tablet 2 tab-cap PO QPM RF: 0 Preparation H Suppository [address] BID PRN (Reason: rectal pressure) RF: 0 lorazepam 0.5 mg Tablet 0.5 mg PO TID RF: 0 dexamethasone [Decadron] 4 mg tablet 2 mg PO QAM RF: 0 diclofenac sodium [Voltaren Arthritis Pain] 1 % gel 2 g EXT TID RF: 0 acetaminophen 325 mg Tablet 650 mg PO Q4 MDD 3g PRN (Reason: pain level 1-5) RF: 0 acetaminophen 325 mg Tablet 650 mg PO Q4 MDD 3g PRN (Reason: elevated temperature) RF: 0 Discharge Orders: Discharge Order (Routine); Ordered 09/05/21 Ordered By: Rayne Tanner Admission Data Admit Date/Time: 09/03/21 15:58 Attending Provider: Kalyan Mora Admit Provider: Terry Ortega Primary Care Provider: Lucinda Smith Other Providers: Terry Ortega Other Interventions: Discharge Summary Assessment (RN) Last Done: 09/05/21 13:05 Supervising Physician Co-Signing Physician Notes During face to face encounter, obtained physical examination and history of hospittal stay. Answered any questions patient had during hospital stay. D/W patient and TATY Tanner. Reviewed above note and agree with it. Due to falls, patient will be going to [facility] at [facility]. Coding Level of Care Code D/C DAY MANAGEMENT >30 MINS Diagnoses Fall W19.XXXA Hypercalcemia E83.52 Endometrial adenocarcinoma C54.1 Anemia D64.9 Elevated troponin R77.8 Dysuria R30.0 DVT (deep venous thrombosis) I82.409 Hypomagnesemia E83.42
[2021-09-05] MEDS ORDERED: DICLOFENAC SOD 1% GEL 100 GM TUBE EXT SCH (14:00)
[2021-09-05] MEDS ORDERED: dexAMETHasone 4 MG TAB PO SCH (14:30)
== END 2021-09-05 17:00 | disposition home or self-care (01) | DRG 55 ==
LOC: ED 10:31 → 2W 15:58 → SUATTDRO 15:58 → 2W 19:46

== ENCOUNTER 2021-10-11 10:53 | Observation (INO) ==
--- NOTE | 2021-10-11 11:23 | Emergency Department Note ---
History of Present Illness General Chief complaint: Cardiac Assessment Stated complaint: CHEST PAIN Time Seen by Provider: 10/11/21 10:57 Source: patient Mode of arrival: ambulatory Limitations: no limitations History of Present Illness Provider complaint: chest pain Onset (ago): day(s) 1 Location: chest Radiation: back and extremity Severity: moderate Maximum Pain Intensity: 6 Relieved By: + none Exacerbated By: + movement and + other Associated symptoms: + other Treatments prior to arrival: none This is a 76-year-old female presents emergency department complaining of chest pain and shortness of breath. She states yesterday she began noticing a left- sided chest pain that radiated into her left shoulder and left upper back. She states she had a difficult time sleeping overnight and noticed she also felt slightly lightheaded/dizzy. She states that this morning the discomfort in her left shoulder was now extending distally down to the left elbow. She denies any change in her pain with movement of the left upper extremity. Patient states she also feels as though she cannot take a deep breath as this causes increased pain. She states with no movement and shallow breathing her pain is not too bad. She denies fevers, chills, or recent illness. Patient is currently undergoing chemotherapy for metastatic uterine cancer. She states she does take daily chemotherapeutic pills, her last dose of Keytruda was last week, and a few week she is scheduled to begin radiation. She states she does have seasonal allergies and has had a cough and rhinorrhea from this, she did not feel this was an evolving illness. She denies any known sick contact. Pt seen during a time of high acuity and national emergency pandemic while wearing PPE. Home Medications Medication Instructions Recorded Confirmed Type multivitamin 1 tab PO QAM 12/18/19 10/11/21 History apixaban 5 mg tablet (Eliquis) 5 mg PO BID 01/11/20 10/11/21 History fluticasone propionate 50 2 spray INTRANASAL .EVERY 24 HOURS 09/03/21 10/11/21 History mcg/actuation nasal PRN spray,suspension (Flonase Allergy Relief) lenvatinib 20 mg/day (10 mg x 2) 20 mg PO QPM 09/03/21 10/11/21 History capsule (Lenvima) sennosides 8.6 mg-docusate sodium 1 tab PO QAM #30 tab 09/05/21 10/11/21 Rx 50 mg tablet (Senokot-S) acetaminophen 325 mg tablet 650 mg PO Q4 PRN MDD 3g 09/14/21 10/11/21 History cetirizine 10 mg tablet (Zyrtec) 10 mg PO DAILY PRN 09/14/21 10/11/21 History cocoa butter-shark liver oil 1 supp [place] BID PRN 09/14/21 10/11/21 History rectal suppository lorazepam 0.5 mg tablet 0.5 mg PO TID 09/14/21 10/11/21 History alprazolam 0.5 mg tablet 0.5 mg PO DAILY PRN 10/11/21 10/11/21 History diclofenac sodium 1 % topical gel 2 g TOPICAL TID PRN 10/11/21 10/11/21 History levothyroxine 50 mcg tablet 50 mcg PO DAILYBB 10/11/21 10/11/21 History Allergies Allergy/AdvReac Type Severity Reaction Status Date / Time No Known Allergies Allergy Verified 10/11/21 14:49 Past Med/Surg History Medical History (Updated 10/12/21 @ 18:02 by Sandi Martin DO) Anxiety no medications Carcinoma of ovary, stage 4 Has had MRI & PET scans. Depression no medications DVT (deep venous thrombosis) Left leg. Dx'ed November 2019. On Eliquis Dyspnea Endometrial adenocarcinoma History of chemotherapy Carboplatin + Taxol x6 cycles (-05/06/2020), Bevacizumab added starting cycle 2 Doxil + Avastin (01/2021-05/2021) Pembrolizumab/Lenvima (07/21/2021-Current) Left hip pain Lung nodule Mediastinal lymphadenopathy Metastatic cancer to lung Multiple pulmonary nodules determined by computed tomography of lung Presumed metastatic disease Peritoneal carcinomatosis Pneumothorax Shortness of breath on exertion Surgical History History of arthroscopy of right knee History of bronchoscopy (12/28/19) + Endobronchial Lymph Node Biopsy History of colonoscopy History of lung biopsy (08/04/21) Left History of tonsillectomy History of tooth extraction Port-A-Cath in place (01/17/20) Insertion of Mediport with Fluoroscopy Dr. Thomas 01/17/20 Family History Mother Colorectal cancer Father No problems noted. Daughter No problems noted. Daughter No problems noted. Brother No problems noted. Sister No problems noted. Sister No problems noted. Other Cancer No family history of adverse response to anesthesia Social History Smoking Status: Former smoker Tobacco Type: Cigarettes packs per day: 1; Years Smoked: 40; Cigarettes Per Day: 20; Number of Years Since Quit: 8; Second Hand Exposure: No; Hx Alcohol Use: No Hx Substance Use: No Preferred Language: Guatemalan Communication Ability: Effective Visual Impairment: Limited Hearing Ability: Normal Dumpcart Driver Required: No Beliefs That Will Affect Care: None marital status: Current Living Situation: Alone Current Living Situation Comment: will be home in 2 weeks current occupational status: retired How many Children do You have: 2 Feels Safe at Home: Yes Childhood Exposure to Second-Hand Smoke: Yes caffeine: No during the past year weight has: decreased > 10 lbs Dental Care, Regularly: No Assistive Devices: Glasses Review of Systems A total of 10 systems reviewed and were otherwise negative All systems reviewed & are unremarkable except as noted in HPI & below Physical Exam Vital Signs Vital Signs - 24 hr 10/11/21 11:04 10/11/21 13:00 10/11/21 15:00 Temperature 36.5 C Temperature Source Oral Pulse Rate 110 H Pulse Rate [Right Finger] 95 H 98 H Pulse Rhythm Regular Pulse Rhythm [Right Finger] Regular Regular Pulse Strength Normal Pulse Strength [Right Finger] Normal Normal Respiratory Rate 22 18 18 Respiratory Effort / Characteristics Spontaneous Non-Labored Non-Labored Respiratory Depth Normal Normal Normal Respiratory Pattern Regular Regular Regular Blood Pressure 109/74 Blood Pressure [Right Arm] 105/79 114/93 Blood Pressure Mean 85 Blood Pressure Mean [Right Arm] 87 100 Blood Pressure Position Lying Blood Pressure Position [Right Arm] Lying Pulse Oximetry 88 L 93 94 Oxygen Delivery Method Nasal Cannula Room Air Room Air Oxygen Flow Rate 0 Sepsis Recent Fever Within 48 Hours No Sepsis New/Unexplained Change in Mental Status No Sepsis Action Taken by Nursing MD Previously Notified Oxygen Flow Rate - Titration 2 Pulse Oximetry Post Tiitration 94 GENERAL: alert, well appearing, well nourished, no distress, non-toxic EYE EXAM: normal conjunctiva, PERRL and EOM's grossly intact OROPHARYNX: no exudate, no erythema, lips, buccal mucosa, and tongue normal and mucous membranes are moist NECK: supple, no nuchal rigidity, no adenopathy, non-tender LUNGS: Clear to auscultation. Normal chest wall mechanics, no w/r/r HEART: no murmurs, S1 normal and S2 normal ABDOMEN: abdomen soft, non-tender, normo-active bowel sounds, no masses, no rebound or guarding. BACK: Back is symmetrical on inspection and there is no deformity, no midline tenderness, no CVA tenderness. SKIN: no rashes and no bruising UPPER EXTREMITIES: upper extremities are grossly normal. FROM, nml pulses b/l. LOWER EXTREMITIES: No pitting edema. FROM, nml pulses b/l. NEURO EXAM: Normal sensorium, cranial nerves II-XII grossly intact, normal speech, no gross weakness of arms, no gross weakness of legs. Gross sensation intact. Course Administered Medications Acetaminophen (Acetaminophen 325 Mg Tab) 650 mg PO Q4 PRN PRN Reason: pain level 1-5 Stop: 11/10/21 16:55 Last Admin: 10/11/21 17:42 Dose: 650 mg Documented by: [id number] Apixaban (Apixaban 5 Mg Tablet) 5 mg PO BID [facility] Stop: 11/10/21 20:59 Last Admin: 10/12/21 07:51 Dose: 5 mg Documented by: [id number] Admin: 10/11/21 20:37 Dose: 5 mg Documented by: [id number] Aspirin (Aspirin 81 Mg Ectab) 81 mg PO [facility] Stop: 11/11/21 08:59 Last Admin: 10/12/21 07:52 Dose: 81 mg Documented by: [id number] Clonazepam (Clonazepam 0.5 Mg Tab) 0.5 mg PO Q12H [facility] Stop: 11/10/21 16:55 Last Admin: 10/12/21 07:53 Dose: 0.5 mg Documented by: [id number] Admin: 10/11/21 20:36 Dose: 0.5 mg Documented by: [id number] Escitalopram Oxalate (Escitalopram Oxalate 10 Mg Tab) [facility] Stop: 11/10/21 16:55 Last Admin: 10/12/21 07:52 Dose: 10 mg Documented by: [id number] Admin: 10/11/21 18:24 Dose: 10 mg Documented by: [id number] Multivitamins (Multivitamin Tab) 1 tab PO QAM [facility] Stop: 11/11/21 08:59 Last Admin: 10/12/21 07:51 Dose: 1 tab Documented by: [id number] Polyethylene Glycol (Polyethylene (Miralax) 17 Gm Pack) 17 gm PO DAILY PRN PRN Reason: Constipation Stop: 11/10/21 16:55 Last Admin: 10/11/21 17:42 Dose: 17 gm Documented by: [id number] Senna/Docusate Sodium (Docusate Sodium/Senna 50/8.6mg Tab) 1 tab PO QAM [facility] Stop: 11/11/21 08:59 Last Admin: 10/12/21 07:52 Dose: 1 tab Documented by: [id number] Discontinued Medications Albuterol (Albuterol Hfa 8 Gm Inhaler) 2 puffs INH QIDR [facility] Stop: 11/10/21 19:59 Last Admin: 10/12/21 07:39 Dose: 2 puffs Documented by: [id number] Admin: 10/11/21 20:15 Dose: 2 puffs Documented by: [id number] Aspirin (Aspirin Chew 324 Mg) 324 mg PO NOW STA Stop: 10/11/21 15:23 Last Admin: 10/11/21 16:35 Dose: Not Given Documented by: [id number] Furosemide (Furosemide 40 Mg/4 Ml Vial) 40 mg IV ONE ONE Stop: 10/11/21 17:31 Last Admin: 10/11/21 17:42 Dose: 40 mg Documented by: [id number] Gadobutrol (Gadobutrol 7.5ml Vial) 6 ml IV ONCE ONE Stop: 10/12/21 11:03 Last Admin: 10/12/21 11:03 Dose: 6 ml Documented by: [id number] Magnesium Sulfate/Dextrose (Magnesium Sulfate / D5w) 1 gm in 100 mls @ 100 mls/hr IV NOW STA Stop: 10/11/21 13:02 Last Infusion: 10/11/21 13:59 Dose: 0 mls/hr Documented by: [id number] Admin: 10/11/21 12:58 Dose: 100 mls/hr Documented by: [id number] Ioversol (Optiray 320 125ml) 120 ml IV ONCE ONE Stop: 10/11/21 12:40 Last Admin: 10/11/21 12:39 Dose: 120 ml Documented by: [id number] Ketorolac Tromethamine (Ketorolac Tromethamine 15 Mg/Ml Vial) 15 mg IV NOW ONE Stop: 10/11/21 19:42 Last Admin: 10/11/21 20:35 Dose: 15 mg Documented by: [id number] Levothyroxine Sodium (Levothyroxine Sodium 50 Mcg Tablet) 50 mcg PO DAILYBB [facility] Stop: 11/11/21 06:29 Last Admin: 10/12/21 07:51 Dose: 50 mcg Documented by: [id number] Miscellaneous (Lenvatinib- Order Awaiting Action) 1 ea N/A QS [facility] Stop: 11/11/21 00:00 Last Admin: 10/12/21 07:54 Dose: Not Given Documented by: [id number] Admin: 10/11/21 23:58 Dose: Not Given Documented by: [id number] Medical Decision Making Differential Diagnosis Differential diagnoses includes but is not limited to pneumonia, bronchitis, COPD/Asthma exacerbation, pneumothorax, pulmonary embolism, congestive heart failure, acute coronary syndrome Medical Records Attestation: I reviewed the patient's medical records. Home Medications Current Medication List: was personally reviewed by me Laboratory Data Attestation: I reviewed the patient's lab results. Result diagrams: 10/12/21 05:42 10/12/21 05:42 Lab Results 10/11/21 10/11/21 10/11/21 Range/Units 11:10 11:10 11:10 WBC 7.28 (4.8-10.8) K/uL RBC 4.44 (4.2-5.4) M/uL Hgb 13.7 (12.0-16.0) g/dL Hct 42.1 (37-47) % MCV 94.8 (80-100) fL MCH 30.9 (25-34) pg MCHC 32.5 (32-36) g/dL RDW Std Deviation 74.4 H (36.4-46.3) fL RDW Coeff of Colleen 21.4 H (11.5-14.5) % Plt Count 183 (130-400) K/uL MPV 11.0 H (7.4-10.4) fL Immature Gran % (Auto) 0.1 % Neut % (Auto) 71.4 % Lymph % (Auto) 14.3 % Rooks % (Auto) 13.7 % Eos % (Auto) 0.1 % Baso % (Auto) 0.4 % Neut # (Auto) 5.19 (1.4-6.5) K/uL Lymph # (Auto) 1.04 L (1.2-3.4) K/uL Rooks # (Auto) 1.00 H (0.11-0.59) K/uL Eos # (Auto) 0.01 (0-0.5) K/uL Baso # (Auto) 0.03 (0-0.2) K/uL Immature Gran # (Auto) 0.01 (0.00-0.02) K/uL Anisocytosis Present PT 11.7 (9.0-12.0) Seconds INR 1.1 (0.9-1.1) Sodium 138 (136-145) mmol/L Potassium 4.2 (3.5-5.1) mmol/L Chloride 104 (98-107) mmol/L Carbon Dioxide 21 (21-32) mmol/L Anion Gap 13 H (3-11) BUN 25 H (6-23) mg/dl Creatinine 1.09 (0.6-1.2) mg/dl Est Cr Clr Drug Dosing 37.8 ml/min Est GFR ( Amer) 57.1 ml/min Est GFR (Non-Af Amer) 49.3 ml/min BUN/Creatinine Ratio 22.9 H (10-20) Glucose 98 (70-99(Fasting)) mg/dl Calcium 10.0 (8.5-10.1) mg/dl Magnesium 1.6 L (1.7-2.4) mg/dl Total Bilirubin 1.2 H (0.2-1.0) mg/dl AST 27 (13-39) U/L ALT 22 (7-52) U/L Alkaline Phosphatase 111 H (34-104) U/L Troponin I High Sens 72.8 H* (0-14) pg/ml Total Protein 6.4 (6.0-8.3) gm/dl Albumin 3.8 (3.4-5.0) gm/dl Globulin 2.6 (2.5-4.0) gm/dl Albumin/Globulin Ratio 1.5 (0.9-2) TSH (0.300-4.500) uIu/ml Free T4 (0.61-1.60) ng/dl SARS-CoV-2, RNA, NAAT (NEGATIVE) 10/11/21 10/11/21 10/11/21 Range/Units 11:10 13:43 14:25 WBC (4.8-10.8) K/uL RBC (4.2-5.4) M/uL Hgb (12.0-16.0) g/dL Hct (37-47) % MCV (80-100) fL MCH (25-34) pg MCHC (32-36) g/dL RDW Std Deviation (36.4-46.3) fL RDW Coeff of Colleen (11.5-14.5) % Plt Count (130-400) K/uL MPV (7.4-10.4) fL Immature Gran % (Auto) % Neut % (Auto) % Lymph % (Auto) % Rooks % (Auto) % Eos % (Auto) % Baso % (Auto) % Neut # (Auto) (1.4-6.5) K/uL Lymph # (Auto) (1.2-3.4) K/uL Rooks # (Auto) (0.11-0.59) K/uL Eos # (Auto) (0-0.5) K/uL Baso # (Auto) (0-0.2) K/uL Immature Gran # (Auto) (0.00-0.02) K/uL Anisocytosis PT (9.0-12.0) Seconds INR (0.9-1.1) Sodium (136-145) mmol/L Potassium (3.5-5.1) mmol/L Chloride (98-107) mmol/L Carbon Dioxide (21-32) mmol/L Anion Gap (3-11) BUN (6-23) mg/dl Creatinine (0.6-1.2) mg/dl Est Cr Clr Drug Dosing ml/min Est GFR ( Amer) ml/min Est GFR (Non-Af Amer) ml/min BUN/Creatinine Ratio (10-20) Glucose (70-99(Fasting)) mg/dl Calcium (8.5-10.1) mg/dl Magnesium (1.7-2.4) mg/dl Total Bilirubin (0.2-1.0) mg/dl AST (13-39) U/L ALT (7-52) U/L Alkaline Phosphatase (34-104) U/L Troponin I High Sens 79.2 H* (0-14) pg/ml Total Protein (6.0-8.3) gm/dl Albumin (3.4-5.0) gm/dl Globulin (2.5-4.0) gm/dl Albumin/Globulin Ratio (0.9-2) TSH 19.126 H (0.300-4.500) uIu/ml Free T4 0.89 (0.61-1.60) ng/dl SARS-CoV-2, RNA, NAAT NEGATIVE (NEGATIVE) Imaging Data Radiologist's Impression: Chest CTA 10/11/21 11:17 CHEST CTA for PULMONARY ARTERIES CT DOSE: 248.78 mGy.cm HISTORY: Atypical chest pain. TECHNIQUE: Multiaxial CT images of the chest were performed following the intravenous administration of contrast to evaluate the pulmonary arteries. Maximal intensity projection images were also obtained. A dose lowering technique was utilized adhering to the principles of ALARA. COMPARISON STUDY: Chest CT 06/11/2021. FINDINGS: The visualized spleen and adrenal glands are unremarkable. Stable hypodense lesion within the right hepatic lobe likely representing a cyst. Trace bilateral pleural effusions. No significant mediastinal or hilar lymphadenopathy. Normal esophagus. The heart is borderline enlarged. No andrea cardial effusion. No filling defects within the pulmonary arteries to suggest a pulmonary embolus. Normal caliber thoracic aorta. Inadequate contrast within the thoracic aorta to assess for a dissection. No fractures within the visualized osseous structures. No pneumothorax. There is a 9 mm irregular nodule within the left lower lobe on image 149. Stable 4 mm nodule within the left lung apex on im age 226. There is a 3 mm groundglass nodule within the left upper lobe on image 206. Interlobular septal thickening most pronounced at the lung bases. This favors mild pulmonary edema. There is mild emphysema. Associated small nodular densities within the lung bases likely represents the pulmonary edema. The central airways are patent. IMPRESSION: 1. Borderline cardiomegaly with trace bilateral pleural effusions and mild pulmonary edema. 2. Mild emphysema. 3. No evidence for pulmonary embolus. 4. Redemonstration of the 9 mm irregular nodule within the left lower lobe. This is concerning for a malignancy. 5. Additional findings as described above. ACT 112: Negative or not required by law. Electronically signed by: Rohan Acosta M.D. 10/11/2021 1:05 PM ECG Data Attestation: I personally reviewed and interpreted this ECG as follows: Indication: + chest pain Rate (beats per minute): 112 Rhythm: + sinus tachycardia ECG Intervals/blocks: + Normal QRS and + Normal QT ECG [place]: + Normal ECG ST segments: + Nonspecific ST abnormalities MDM Narrative An order was placed for continuous cardiac monitoring. The monitor shows a rate of _86__ with _normal sinus__ rhythm. This is a 76-year-old female presents due to concern for chest pain and shortness of breath. Patient was initially tachycardic and did have borderline hypoxia and was placed on oxygen via nasal cannula initially. Patient's symptoms are new. Patient does have a history of malignancy which is currently being treated. Labs are drawn and sent and patient sent for CT angiography of the chest due to high concern for PE. Patient CT of the chest was reassuring however troponin was elevated. A repeat troponin was added and continued to escalate. There were no acute EKG changes noted on patient's symptoms were improving while she was here. Case discussed with hospitalist for additional evaluation and management. Impression & Plan Chest pain, Dyspnea, Elevated troponin Discharge Plan Visit Data Chief Complaint: Cardiac Assessment Stated Complaint: CHEST PAIN ED Provider: Sandi Martin Discharge Problem: Chest pain, Dyspnea, Elevated troponin Patient Disposition: Admitted As Inpatient Discharge Instructions Interventions: ED Discharge Assessment Last Done: 10/11/21 16:39 Discharge Problem: Chest pain Qualifiers: Chest pain type: unspecified Qualified Code(s): R07.9 - Chest pain, unspecified Dyspnea Qualifiers: Dyspnea type: shortness of breath Qualified Code(s): R06.02 - Shortness of breath
[2021-10-11 11:32] LABS: Basophils # (auto) 0.03 K/uL (0-0.2); Basophils % (auto) 0.4 %; Eosinophils # (auto) 0.01 K/uL (0-0.5); Eosinophils % (auto) 0.1 %; Hematocrit (blood only) 42.1 % (37-47); Hemoglobin 13.7 g/dL (12.0-16.0); Immature Granulocytes # (auto) 0.01 K/uL (0.00-0.02); Immature Granulocytes % (auto) 0.1 %; Lymphocytes # (auto) 1.04 K/uL (1.2-3.4); Lymphocytes % (auto) 14.3 %; Mean Corpuscular Hemoglobin 30.9 pg (25-34); Mean Corpuscular Hgb Conc 32.5 g/dL (32-36); Mean Corpuscular Volume 94.8 fL (80-100); Monocytes % (auto) 13.7 %; Neutrophils # (auto) 5.19 K/uL (1.4-6.5); Neutrophils % (auto) 71.4 %; Platelet Count 183 K/uL (130-400); RDW Coefficient of Variation 21.4 % (11.5-14.5); RDW Standard Deviation 74.4 fL (36.4-46.3); Red Blood Count 4.44 M/uL (4.2-5.4); White Blood Count 7.28 K/uL (4.8-10.8)
[2021-10-11 11:52] LABS: Albumin Globulin Ratio 1.5 (0.9-2); Albumin Level 3.8 gm/dl (3.4-5.0); BUN Creatinine Ratio 22.9 (10-20); Bilirubin,Total 1.2 mg/dl (0.2-1.0); Creatinine Clr Calc Pharmacy 37.8 ml/min; Est GFR (African American) 57.1 ml/min; Est GFR (Non-African American) 49.3 ml/min; Globulin 2.6 gm/dl (2.5-4.0); Magnesium 1.6 mg/dl (1.7-2.4); Potassium 4.2 mmol/L (3.5-5.1); Total Protein 6.4 gm/dl (6.0-8.3)
[2021-10-11 11:56] LABS: Anisocytosis Present
[2021-10-11 12:01] LABS: Troponin I High Sensitivity 72.8 pg/ml (0-14)
[2021-10-11 12:03] LABS: INR 1.1 (0.9-1.1); Prothrombin Time 11.7 Seconds (9.0-12.0)
[2021-10-11] MEDS ORDERED: MAGNESIUM SULFATE / D5W 1 GM/100 ML BAG IV STA (12:03)
[2021-10-11 12:07] LABS: Thyroid Stimulating Hormone 19.126 uIu/ml (0.300-4.500)
[2021-10-11] MEDS ORDERED: OPTIRAY 320 125ml IV ONE (12:39)
[2021-10-11 12:42] LABS: T4 Free Thyroxine 0.89 ng/dl (0.61-1.60)
--- NOTE | 2021-10-11 13:07 | CT Scan Report ---
CHEST CTA for PULMONARY ARTERIES CT DOSE: 248.78 mGy.cm HISTORY: Atypical chest pain. TECHNIQUE: Multiaxial CT images of the chest were performed following the intravenous administration of contrast to evaluate the pulmonary arteries. Maximal intensity projection images were also obtaine d. A dose lowering technique was utilized adhering to the principles of ALARA. COMPARISON STUDY: Chest CT 06/11/2021. FINDINGS: The visualized spleen and adrenal glands are unremarkable. Stable hypodense lesion within t he right hepatic lobe likely representing a cyst. Trace bilateral pleural effusions. No significant m ediastinal or hilar lymphadenopathy. Normal esophagus. The heart is borderline enlarged. No pericardi al effusion. No filling defects within the pulmonary arteries to suggest a pulmonary embolus. Normal caliber thoracic aorta. Inadequate contrast within the thoracic aorta to assess for a dissection. No fractures within the visualized osseous structures. No pneumothorax. There is a 9 mm irregular nodule within the left lower lobe on image 149. Stable 4 mm nodule within the left lung apex on image 226. There is a 3 mm groundglass nodule within the left upper lobe on image 206. Interlobular septal thick ening most pronounced at the lung bases. This favors mild pulmonary edema. There is mild emphysema. A ssociated small nodular densities within the lung bases likely represents the pulmonary edema. The ce ntral airways are patent. IMPRESSION: 1. Borderline cardiomegaly with trace bilateral pleural effusions and mild pulmonary edema. 2. Mild emphysema. 3. No evidence for pulmonary embolus. 4. Redemonstration of the 9 mm irregular nodule within the left lower lobe. This is concerning for a malignancy. 5. Additional findings as described above. ACT 112: Negative or not required by law. Electronically signed by: Rohan Acosta M.D. 10/11/2021 1:05 PM
--- NOTE | 2021-10-11 14:30 | History & Physical Report ---
Date of Service October 11, 2021 History of Present Illness Primary Care Provider: Lucinda Smith MD concern for l chest pain to left shoulder, arm that started last night hard to sleep coming and going, worse this Am, with pleuritic component recently dx met uterine ca, po chemo x3 rounds, radiation to begin soon cta neg for pe, no cardiac hx, w/ ekg prior to chemo, no echo or stress test pain improved 2-3 here, no pain meds here Allergies Allergy/AdvReac Type Severity Reaction Status Date / Time No Known Allergies Allergy Verified 10/07/21 09:37 Home Medications Medication Instructions Recorded Confirmed Type multivitamin 1 tab PO QAM 12/18/19 09/14/21 History apixaban 5 mg tablet (Eliquis) 5 mg PO BID 01/11/20 09/14/21 History fluticasone propionate 50 2 spray INTRANASAL .EVERY 24 HOURS 09/03/21 09/14/21 History mcg/actuation nasal PRN spray,suspension (Flonase Allergy Relief) lenvatinib 20 mg/day (10 mg x 2) 20 mg PO QPM 09/03/21 09/14/21 History capsule (Lenvima) oxycodone 5 mg tablet 5 mg PO Q4 PRN 09/03/21 09/14/21 History sennosides 8.6 mg-docusate sodium 1 tab PO QAM #30 tab 09/05/21 09/14/21 Rx 50 mg tablet (Senokot-S) acetaminophen 325 mg tablet 650 mg PO Q4 PRN MDD 3g 09/14/21 10/07/21 History cetirizine 10 mg tablet (Zyrtec) 10 mg PO . Q 24 HOURS PRN 09/14/21 10/07/21 History cocoa butter-shark liver oil 1 supp [place] BID PRN 09/14/21 10/07/21 History rectal suppository lorazepam 0.5 mg tablet 0.5 mg PO TID 09/14/21 10/07/21 History sennosides 8.6 mg-docusate sodium 2 tab-cap PO QPM 09/14/21 10/07/21 History 50 mg tablet (Senokot-S) Past Med/Surg History Medical History Anxiety no medications Carcinoma of ovary, stage 4 Has had MRI & PET scans. Depression no medications DVT (deep venous thrombosis) Left leg. Dx'ed November 2019. On Eliquis Dyspnea Endometrial adenocarcinoma History of chemotherapy Carboplatin + Taxol x6 cycles (-05/06/2020), Bevacizumab added starting cycle 2 Doxil + Avastin (01/2021-05/2021) Pembrolizumab/Lenvima (07/21/2021-Current) Left hip pain Lung nodule Mediastinal lymphadenopathy Metastatic cancer to lung Multiple pulmonary nodules determined by computed tomography of lung Presumed metastatic disease Peritoneal carcinomatosis Pneumothorax Shortness of breath on exertion Surgical History History of arthroscopy of right knee History of bronchoscopy (12/28/19) + Endobronchial Lymph Node Biopsy History of colonoscopy History of lung biopsy (08/04/21) Left History of tonsillectomy History of tooth extraction Port-A-Cath in place (01/17/20) Insertion of Mediport with Fluoroscopy Dr. Thomas 01/17/20 Family History Mother Colorectal cancer Father No problems noted. Daughter No problems noted. Daughter No problems noted. Brother No problems noted. Sister No problems noted. Sister No problems noted. Other Cancer No family history of adverse response to anesthesia Social History Smoking Status: Former smoker Tobacco Type: Cigarettes packs per day: 1; Years Smoked: 40; Cigarettes Per Day: 20; Number of Years Since Quit: 8; Second Hand Exposure: No; Hx Alcohol Use: No Hx Substance Use: No Preferred Language: Lao Communication Ability: Effective Visual Impairment: Limited Hearing Ability: Normal Sound Mixer Required: No Beliefs That Will Affect Care: None marital status: Current Living Situation: Spouse Current Living Situation Comment: [place] current occupational status: retired How many Children do You have: 2 Feels Safe at Home: Yes Childhood Exposure to Second-Hand Smoke: Yes caffeine: No during the past year weight has: decreased > 10 lbs Dental Care, Regularly: No Assistive Devices: None Results & Data Results & Data ([facility]) Vital Signs (Past 12 Hours) Vital Signs Temp Pulse Pulse Resp BP BP Pulse Ox 05/28/22 13:00 95 H 18 105/79 93 10/11/21 11:04 36.5 C 110 H 22 109/74 88 L PG Care Time/CCT Total # of Minutes Spent Total Time Spent with Patient: Total time spent is greater than 50% in coordination of care (as documented) at patient's floor/unit and/or counseling patient: Coding
[2021-10-11] MEDS ORDERED: ASPIRIN CHEW 324 MG PO STA (15:22)
--- NOTE | 2021-10-11 15:56 | History & Physical Report ---
Date of Service October 11, 2021 Assessment & Plan (1) Chest pain: Plan: Attending: Dr. Jessica Impression: 76-year-old female diagnosed with endometrial cancer 2 years ago and now with metastatic spread to the lung and to the brain. Brain lesion has grown from 1.2 to 1.6 cm. She is currently undergoing radiation. She also is undergoing chemotherapy and is followed by Dr. Peter formally and currently by Dr. Ellis. Approximately 2 days ago the patient noticed chest pain that started anterior in the fourth and fifth rib space and pushed through to her back. She has no diaphoresis. She does have some radiation of pain into her left arm. She has no other symptoms consistent with acute myocardial infarction. EKG shows nonspecific T wave forms. Troponin is slightly elevated and is a 72.8 with repeat 4 hours later 79.2. Patient is being admitted under observation for chest pain rule out. Patient's most recent troponin was 79.2 at 1343. We will repeat troponin at 2100 this evening. Admit to med/telemetry under observation status Patient received 324 mg of aspirin prehospital in route to the emergency department. We will start the patient on 81 mg p.o. daily starting tomorrow morning Repeat EKG every morning and with pain Hemodynamically stable Differential diagnosis includes anxiety CTA of the chest negative for pulmonary embolus. There is some interseptal thickening consistent with pulmonary edema as well as known pulmonary nodules. Patient also has very small bilateral pleural effusions (2) Hypomagnesemia: Plan: Magnesium is 1.6 on admission. Patient received 1 g of magnesium sulfate Repeat magnesium lab in the morning and replete as necessary No T wave changes on EKG Potassium level is within normal limits at 4.2 (3) Elevated troponin: Plan: Troponin on admission was slightly elevated at 72.8. Repeat troponin 79.2. Please see above under chest pain rule out (4) Metastatic disease: Plan: Endometrial cancer diagnosed 2 years ago. Patient is undergoing chemotherapy and recently changed chemotherapeutic agent. Metastatic disease to the left lower lobe of the lung as well as to the brain Patient is to undergo whole brain radiation Continue management per oncology No indication for consult at this time (5) Hypercalcemia: Plan: Patient with known metastatic adenocarcinoma Currently calcium is at the high end of normal at 10.0 Follow serial labs No volume depletion. As a matter fact patient seems to be a little bit volume overloaded and we are giving 1 dose of furosemide No mental status changes (6) Anxiety: Plan: I suspect that anxiety is playing a major role in patient's current symptoms Anxiety certainly is expected with the patient's metastatic disease Outpatient meds include 2 short acting benzodiazepines. Patient does not like taking them because they make her feel "loopy". Will discontinue patient's alprazolam and start her on clonazepam every 12 hours scheduled. Change lorazepam from 3 times daily scheduled to every 8 hours as needed for breakthrough anxiety We will also start patient on Lexapro 10 mg p.o. daily. Patient educated that this may make her feel more depressed initially for the first 7 to 14 days. Continue with supportive care with the patient's underlying anxiety. (7) Bilateral pleural effusion: Plan: Very small bilateral pleural effusions. Would not address these at this time. CT scan shows interlobular septal thickening most pronounced at lung bases. This seems to be consistent with early onset CHF. We will treat the patient with 40 mg of IV Lasix x1 and follow fluid output Furosemide as needed based on presentation And is much as if pleural effusions are bilateral, I doubt that this is directly associated with the patient's left lower lobe metastatic disease. (8) DVT (deep venous thrombosis): Plan: Patient is chronically anticoagulated with apixaban twice daily for history of DVT. We will continue this while inpatient Please refer to Dr. Jessica's addendum for further recommendations. History of Present Illness Chief Complaint: Chest pain Primary Care Provider: Lucinda Smith MD Attending: Dr. Jessica Is a 76-year-old female who presents with chest pain. She has a past medical history including endometrial cancer with metastatic spread to the lung and to the brain, hypercalcemia, status post fall, history of pneumothorax, left lower lobe nodule, history of tobacco abuse, history of DVT, peritoneal ca rcinomatosis, mediastinal lymphadenopathy, anxiety. Patient presents with a 2-day history of chest pain. Her is with her at this time and there thinking that it may be partially related to anxiety. We discussed reasons for anxiety and they revolve around her cancer. She is most concerned that she will have pain. Following that she is concerned about those that she will leave behind. She is always been anxious. Her states that she gets tearful at times. Home medications include alprazolam every morning and lorazepam 3 times daily as needed. Patient is not on an antidepr essant. She is not on any long-acting benzodiazepines. She is hesitant to take the alprazolam or lorazepam because she states that it makes her "loopy". Patient states her chest pain is located just lateral to the sternum and the fourth the fifth intercostal spaces and feels like it radiates straight through to her back. She has no flank pain. She has no shortness of breath. She has no awareness of tachyarrhythmia. She has no fever. She denies hemoptysis. She has no lower extremity edema or asymmetry. She is chronically anticoagulated on apixaban for previous DVT. Patient denies shortness of breath or chest pain with exertion. She has no diaphoresis. She did have 1 episode of chills last night. Patient was diagnosed with her cancer 2 years ago and has been followed by Dr. Peter and recently by Dr. Ellis. She follows with Dr. Willson in the pulmonary office for her pulmonary lesions. Patient has no other acute complaints at this time. We had discussion regarding CODE STATUS. Patient is clear that she wants to be DNR/DNI. present in the room and affirms her decision. Allergies Allergy/AdvReac Type Severity Reaction Status Date / Time No Known Allergies Allergy Verified 10/11/21 14:49 Home Medications Medication Instructions Recorded Confirmed Type multivitamin 1 tab PO QAM 12/18/19 10/11/21 History apixaban 5 mg tablet (Eliquis) 5 mg PO BID 01/11/20 10/11/21 History fluticasone propionate 50 2 spray INTRANASAL .EVERY 24 HOURS 09/03/21 10/11/21 History mcg/actuation nasal PRN spray,suspension (Flonase Allergy Relief) lenvatinib 20 mg/day (10 mg x 2) 20 mg PO QPM 09/03/21 10/11/21 History capsule (Lenvima) sennosides 8.6 mg-docusate sodium 1 tab PO QAM #30 tab 09/05/21 10/11/21 Rx 50 mg tablet (Senokot-S) acetaminophen 325 mg tablet 650 mg PO Q4 PRN MDD 3g 09/14/21 10/11/21 History cetirizine 10 mg tablet (Zyrtec) 10 mg PO DAILY PRN 09/14/21 10/11/21 History cocoa butter-shark liver oil 1 supp VA BID PRN 09/14/21 10/11/21 History rectal suppository lorazepam 0.5 mg tablet 0.5 mg PO TID 09/14/21 10/11/21 History alprazolam 0.5 mg tablet 0.5 mg PO DAILY PRN 10/11/21 10/11/21 History diclofenac sodium 1 % topical gel 2 g TOPICAL TID PRN 10/11/21 10/11/21 History levothyroxine 50 mcg tablet 50 mcg PO DAILYBB 10/11/21 10/11/21 History Past Med/Surg History Medical History (Updated 10/11/21 @ 15:53 by Hossein Bell PA-C) Anxiety no medications Carcinoma of ovary, stage 4 Has had MRI & PET scans. Depression no medications DVT (deep venous thrombosis) Left leg. Dx'ed November 2019. On Eliquis Dyspnea Endometrial adenocarcinoma History of chemotherapy Carboplatin + Taxol x6 cycles (-05/06/2020), Bevacizumab added starting cycle 2 Doxil + Avastin (01/2021-05/2021) Pembrolizumab/Lenvima (07/21/2021-Current) Left hip pain Lung nodule Mediastinal lymphadenopathy Metastatic cancer to lung Multiple pulmonary nodules determined by computed tomography of lung Presumed metastatic disease Peritoneal carcinomatosis Pneumothorax Shortness of breath on exertion Surgical History History of arthroscopy of right knee History of bronchoscopy (12/28/19) + Endobronchial Lymph Node Biopsy History of colonoscopy History of lung biopsy (08/04/21) Left History of tonsillectomy History of tooth extraction Port-A-Cath in place (01/17/20) Insertion of Mediport with Fluoroscopy Dr. Thomas 01/17/20 Family History Mother Colorectal cancer Father No problems noted. Daughter No problems noted. Daughter No problems noted. Brother No problems noted. Sister No problems noted. Sister No problems noted. Other Cancer No family history of adverse response to anesthesia Social History Smoking Status: Former smoker Tobacco Type: Cigarettes packs per day: 1; Years Smoked: 40; Cigarettes Per Day: 20; Number of Years Since Quit: 8; Second Hand Exposure: No; Hx Alcohol Use: No Hx Substance Use: No Preferred Language: Micronesian Communication Ability: Effective Visual Impairment: Limited Hearing Ability: Normal Host/Hostess Ground Required: No Beliefs That Will Affect Care: None marital status: Current Living Situation: Spouse Current Living Situation Comment: alphonso current occupational status: retired How many Children do You have: 2 Feels Safe at Home: Yes Childhood Exposure to Second-Hand Smoke: Yes caffeine: No during the past year weight has: decreased > 10 lbs Dental Care, Regularly: No Assistive Devices: None Review of Systems Review of Systems: A total of 10 systems was reviewed and is negative other than as listed in the HPI Physical Exam Physical Exam: GENERAL : Some acute distress associated mostly with anxiety EYES: No icterus, gaze conjugate. Pupils equal round and reactive to light NOSE: No evidence of epistaxis MOUTH: No lesions or candidiasis. Tongue midline NECK: Supple LUNGS: CTA B/L, no wheezes, rales or rhonchi HEART: Regular, rate controlled ABDOMEN: Soft, NT, ND, BS Present EXTREMITIES: No LE edema, pedal pulses intact and equal bilaterally NEURO: A&OX3. Pupils equal round and reactive to light. Strength is equal and appropriate bilaterally upper and lower extremities. Toes are downgoing bilaterally. Rapid alternating movement and [id number] appropriate. Cranial nerves II through XII appear grossly intact without focal deficit. Results & Data Results & Data ([facility]) Vital Signs (Past 12 Hours) Vital Signs Temp Pulse Pulse Resp BP BP Pulse Ox 10/11/21 15:00 98 H 18 114/93 94 10/11/21 13:00 95 H 18 105/79 93 10/11/21 11:04 36.5 C 110 H 22 109/74 88 L Critical Care Results & Data Vital Signs (Past 12 Hours) Vital Signs Temp Pulse Pulse Resp BP BP Pulse Ox 10/11/21 15:00 98 H 18 114/93 94 10/11/21 13:00 95 H 18 105/79 93 10/11/21 11:04 36.5 C 110 H 22 109/74 88 L Lab & Micro Results (Past 24 Hours) RBC 4.44 M/uL (4.2-5.4) 10/11/21 WBC 7.28 K/uL (4.8-10.8) 10/11/21 Hgb 13.7 g/dL (12.0-16.0) 10/11/21 Hct 42.1 % (37-47) 10/11/21 MCV 94.8 fL (80-100) 10/11/21 MCH 30.9 pg (25-34) 10/11/21 MCHC 32.5 g/dL (32-36) 10/11/21 RDW Standard Deviation 74.4 fL (36.4-46.3) H 10/11/21 RDW Coefficient of Variation 21.4 % (11.5-14.5) H 10/11/21 Plt Count 183 K/uL (130-400) 10/11/21 MPV 11.0 fL (7.4-10.4) H 10/11/21 Neutrophils (%) (Auto) 71.4 % 10/11/21 Lymphocytes (%) (Auto) 14.3 % 10/11/21 Monocytes # (Auto) 1.00 K/uL (0.11-0.59) H 10/11/21 Eosinophils # (Auto) 0.01 K/uL (0-0.5) 10/11/21 Immature Granulocyte % (Auto) 0.1 % 10/11/21 Neutrophils # (Auto) 5.19 K/uL (1.4-6.5) 10/11/21 Lymphocytes # (Auto) 1.04 K/uL (1.2-3.4) L 10/11/21 Monocytes # (Auto) 1.00 K/uL (0.11-0.59) H 10/11/21 Eosinophils # (Auto) 0.01 K/uL (0-0.5) 10/11/21 Basophils # (Auto) 0.03 K/uL (0-0.2) 10/11/21 Immature Granulocyte # (Auto) 0.01 K/uL (0.00-0.02) 10/11/21 Anisocytosis Present 10/11/21 Na 138 mmol/L (136-145) 10/11/21 K 4.2 mmol/L (3.5-5.1) 10/11/21 Cl 104 mmol/L (98-107) 10/11/21 CO2 21 mmol/L (21-32) 10/11/21 Anion Gap 13 (3-11) H 10/11/21 BUN 25 mg/dl (6-23) H 10/11/21 Creatinine 1.09 mg/dl (0.6-1.2) 10/11/21 Estimated GFR ( Amer) 57.1 ml/min 10/11/21 Estimated GFR (Non-Af Amer) 49.3 ml/min 10/11/21 BUN/Creatinine Ratio 22.9 (10-20) H 10/11/21 Glu 98 mg/dl (70-99(Fasting)) 10/11/21 Ca 10.0 mg/dl (8.5-10.1) 10/11/21 Total Bilirubin 1.2 mg/dl (0.2-1.0) H 10/11/21 AST 27 U/L (13-39) 10/11/21 ALT 22 U/L (7-52) 10/11/21 Alkaline Phosphatase 111 U/L (34-104) H 10/11/21 TP 6.4 gm/dl (6.0-8.3) 10/11/21 Albumin 3.8 gm/dl (3.4-5.0) 10/11/21 Globulin 2.6 gm/dl (2.5-4.0) 10/11/21 Albumin/Globulin Ratio 1.5 (0.9-2) 10/11/21 Mg 1.6 mg/dl (1.7-2.4) L 10/11/21 11:10 10/11/21 Calcium Level 10.0 mg/dl (8.5-10.1) 10/11/21 11:10 10/11/21 Prothromb Time International Ratio 1.1 (0.9-1.1) 10/11/21 11:10 10/11/21 Diagnostic Findings (Past 24 Hours) Chest CTA 10/11/21 11:17 CHEST CTA for PULMONARY ARTERIES CT DOSE: 248.78 mGy.cm HISTORY: Atypical chest pain. TECHNIQUE: Multiaxial CT images of the chest were performed following the intravenous administration of contrast to evaluate the pulmonary arteries. Maximal intensity projection images were also obtained. A dose lowering technique was utilized adhering to the principles of ALARA. COMPARISON STUDY: Chest CT 06/11/2021. FINDINGS: The visualized spleen and adrenal glands are unremarkable. Stable hypodense lesion within the right hepatic lobe likely representing a cyst. Trace bilateral pleural effusions. No significant mediastinal or hilar lymphadenopathy. Normal esophagus. The heart is borderline enlarged. No pericardial effusion. No filling defects within the pulmonary arteries to suggest a pulmonary embolus. Normal caliber thoracic aorta. Inadequate contrast within the thoracic aorta to assess for a dissection. No fractures within the visualized osseous structures. No pneumothorax. There is a 9 mm irregular nodule within the left lower lobe on image 149. Stable 4 mm nodule within the left lung apex on image 226. There is a 3 mm groundglass nodule within the left upper lobe on image 206. Interlobular septal thickening most pronounced at the lung bases. This favors mild pulmonary edema. There is mild emphysema. Associated small nodular densities within the lung bases likely represents the pulmonary edema. The central airways are patent. IMPRESSION: 1. Borderline cardiomegaly with trace bilateral pleural effusions and mild pulmonary edema. 2. Mild emphysema. 3. No evidence for pulmonary embolus. 4. Redemonstration of the 9 mm irregular nodule within the left lower lobe. This is concerning for a malignancy. 5. Additional findings as described above. ACT 112: Negative or not required by law. Electronically signed by: Rohan Acosta M.D. 10/11/2021 1:05 PM I & O Totals 24 Hours 10/10/21 10/11/21 10/12/21 06:59 06:59 06:59 Intake Total 100 / 100 Balance 100 / 100 Cumulative 10/11/21 10:45 thru 10/11/21 13:59 Intake Total 100 Balance 100 RT Ventilator Mngmt (Last Documented) Ventilator Ordered Settings Respiratory Rate 18 10/11/21 15:00 Ventilator - PT Measurements Respiratory Rate 18 COVID-19 Results Results COVID-19 Adm Lab Results: RBC 4.44 M/uL (4.2-5.4) 10/11/21 WBC 7.28 K/uL (4.8-10.8) 10/11/21 Hgb 13.7 g/dL (12.0-16.0) 10/11/21 Hct 42.1 % (37-47) 10/11/21 Plt Count 183 K/uL (130-400) 10/11/21 Neutrophils (%) (Auto) 71.4 % 10/11/21 Lymphocytes (%) (Auto) 14.3 % 10/11/21 Monocytes # (Auto) 1.00 K/uL (0.11-0.59) H 10/11/21 Eosinophils # (Auto) 0.01 K/uL (0-0.5) 10/11/21 Immature Granulocyte % (Auto) 0.1 % 10/11/21 Neutrophils # (Auto) 5.19 K/uL (1.4-6.5) 10/11/21 Lymphocytes # (Auto) 1.04 K/uL (1.2-3.4) L 10/11/21 Monocytes # (Auto) 1.00 K/uL (0.11-0.59) H 10/11/21 Eosinophils # (Auto) 0.01 K/uL (0-0.5) 10/11/21 Basophils # (Auto) 0.03 K/uL (0-0.2) 10/11/21 Immature Granulocyte # (Auto) 0.01 K/uL (0.00-0.02) 10/11/21 Anisocytosis Present 10/11/21 Na 138 mmol/L (136-145) 10/11/21 K 4.2 mmol/L (3.5-5.1) 10/11/21 Cl 104 mmol/L (98-107) 10/11/21 CO2 21 mmol/L (21-32) 10/11/21 Anion Gap 13 (3-11) H 10/11/21 BUN 25 mg/dl (6-23) H 10/11/21 Creatinine 1.09 mg/dl (0.6-1.2) 10/11/21 BUN/Creatinine Ratio 22.9 (10-20) H 10/11/21 Glucose Level 98 mg/dl (70-99(Fasting)) 10/11/21 Ca 10.0 mg/dl (8.5-10.1) 10/11/21 Total Bilirubin 1.2 mg/dl (0.2-1.0) H 10/11/21 AST/SGOT 27 U/L (13-39) 10/11/21 ALT/SGPT 22 U/L (7-52) 10/11/21 Alkaline Phosphatase 111 U/L (34-104) H 10/11/21 Total Protein 6.4 gm/dl (6.0-8.3) 10/11/21 Albumin 3.8 gm/dl (3.4-5.0) 10/11/21 Globulin 2.6 gm/dl (2.5-4.0) 10/11/21 Albumin/Globulin Ratio 1.5 (0.9-2) 10/11/21 INR 1.1 (0.9-1.1) 10/11/21 SARS-CoV-2, RNA, NAAT NEGATIVE (NEGATIVE) 10/11/21 Code Status & VTE Plan Code Status Patient is a full code: Level I VTE Prophylaxis Plan VTE Prophylaxis will be ordered: Yes PG Care Time/CCT Total # of Minutes Spent Total Time Spent with Patient: Total time spent is greater than 50% in coordination of care (as documented) at patient's floor/unit and/or counseling patient: 60 minutes Coding Level of Care Code 95891 Initial Inpt Care Lvl 3 Diagnoses Chest pain R07.9 Hypomagnesemia E83.42 Elevated troponin R77.8 Metastatic disease C79.9 Area of secondary neoplastic involvement: unspecified site Hypercalcemia E83.52 DVT (deep venous thrombosis) I82.409 Anxiety F41.9 Bilateral pleural effusion J90 Time Spent (min) 60 (1) Metastatic disease Area of secondary neoplastic involvement: unspecified site Qualified Code(s): C79.9 - Secondary malignant neoplasm of unspecified site
[2021-10-11] MEDS ORDERED: CETIRIZINE HCL 10 MG TABLET PO PRN (16:56)
[2021-10-11] MEDS ORDERED: MAGNESIUM HYDROXIDE SUSP 30 ML UDC PO PRN (16:56)
[2021-10-11] MEDS ORDERED: ACETAMINOPHEN 325 MG TAB PO PRN (16:56)
[2021-10-11] MEDS ORDERED: ALUMINUM/MAGNESIUM SUSP 30 ML UDC PO PRN (16:56)
[2021-10-11] MEDS ORDERED: DICLOFENAC SOD 1% GEL 100 GM TUBE EXT PRN (16:56)
[2021-10-11] MEDS ORDERED: LORazepam 0.5 MG TAB PO PRN (16:56)
[2021-10-11] MEDS ORDERED: FUROSEMIDE 40 MG/4 ML VIAL IV ONE (17:30)
--- NOTE | 2021-10-11 17:41 | CT Scan Report ---
THORACIC SPINE CT CT DOSE: HISTORY: Lower extremity weakness, back pain, metastatic cancer TECHNIQUE: Multiaxial CT images of the thoracic spine were performed and reformatted in the sagittal and coronal plane without the use of contrast. A dose lowering technique was utilized adhering to th e principles of ALARA. COMPARISON: Thoracic spine radiograph 09/05/2021. FINDINGS: No fractures. No subluxation. Paraspinal soft tissues are unremarkable. Trace bilateral ple ural effusions. A 9 mm irregular nodule again noted within the left lower lobe. This is better perfus ion the same day chest CTA. Interlobular septal thickening with nodular densities again noted at the lung bases. This favors pulmonary edema. No significant central canal narrowing by CT technique. No s uspicious osseous lesions to suggest metastatic disease. Mild to moderate degenerative disc disease s een throughout the thoracic spine. IMPRESSION: 1. No fractures within the thoracic spine. 2. No evidence for metastatic disease within the thoracic spine. 3. Please refer to the same day chest CT for further evaluation of the lungs. ACT 112: Negative or not required by law. Electronically signed by: Rohan Acosta M.D. 10/11/2021 5:38 PM
[2021-10-11] MEDS: POLYETHYLENE (MIRALAX) 17 GM PACK PO PRN (17:42)
--- NOTE | 2021-10-11 17:51 | CT Scan Report ---
LUMBAR SPINE CT CT DOSE: 1037.44 mGy.cm HISTORY: Lower extremity weakness, metastatic cancer TECHNIQUE: Multiaxial CT images of the lumbar spine were performed and reformatted in the sagittal an d coronal plane without the use of contrast. A dose lowering technique was utilized adhering to the principles of ALARA. COMPARISON: None. FINDINGS: No fracture or subluxation within the lumbar spine. No suspicious osseous lesions. Mild dis c space narrowing at L3-L4 and L4-L5. Severe disc space narrowing at L5-S1. Moderate facet degenerati ve changes throughout the lumbar spine. There is mild central canal narrowing at L3-L4 and L4-L5 due to small broad-based posterior disc bulges and ligamentum flavum and facet hypertrophy. IMPRESSION: No fractures within the lumbar spine. ACT 112: Negative or not required by law. Electronically signed by: Rohan Acosta M.D. 10/11/2021 5:50 PM
[2021-10-11] MEDS: ESCITALOPRAM OXALATE 10 MG TAB PO SCH (18:24)
[2021-10-11] MEDS ORDERED: KETOROLAC TROMETHAMINE 15 MG/ML VIAL IV ONE (19:41)
[2021-10-11] MEDS: ALBUTEROL HFA 8 GM INHALER INH SCH (20:15)
[2021-10-11] MEDS: clonazePAM 0.5 MG TAB PO SCH (20:36)
[2021-10-11] MEDS: APIXABAN 5 MG TABLET PO SCH (20:37)
[2021-10-11 21:19] LABS: Influenza A virus by PCR Negative (Neg); Influenza B virus by PCR Negative (Neg); RSV by PCR Negative (Neg); SARS CoV2 RNA(COVID-19) InHosp NEGATIVE (Negative)
[2021-10-12 06:19] LABS: Basophils # (auto) 0.01 K/uL (0-0.2); Basophils % (auto) 0.2 %; Eosinophils # (auto) 0.06 K/uL (0-0.5); Eosinophils % (auto) 1.2 %; Hematocrit (blood only) 37.2 % (37-47); Hemoglobin 12.2 g/dL (12.0-16.0); Immature Granulocytes # (auto) 0.01 K/uL (0.00-0.02); Immature Granulocytes % (auto) 0.2 %; Lymphocytes # (auto) 0.85 K/uL (1.2-3.4); Lymphocytes % (auto) 17.1 %; Mean Corpuscular Hemoglobin 31.2 pg (25-34); Mean Corpuscular Hgb Conc 32.8 g/dL (32-36); Mean Corpuscular Volume 95.1 fL (80-100); Mean Platelet Volume 11.7 fL (7.4-10.4); Monocytes # (auto) 0.75 K/uL (0.11-0.59); Monocytes % (auto) 15.1 %; Neutrophils # (auto) 3.29 K/uL (1.4-6.5); Neutrophils % (auto) 66.2 %; Platelet Count 158 K/uL (130-400); RDW Coefficient of Variation 21.6 % (11.5-14.5); RDW Standard Deviation 75.9 fL (36.4-46.3); Red Blood Count 3.91 M/uL (4.2-5.4); White Blood Count 4.97 K/uL (4.8-10.8)
[2021-10-12] MEDS ORDERED: LEVOTHYROXINE SODIUM 50 MCG TABLET PO SCH (06:30)
[2021-10-12 06:38] LABS: BUN Creatinine Ratio 23.3 (10-20); Calcium 9.4 mg/dl (8.5-10.1); Creatinine Clr Calc Pharmacy 31.7 ml/min; Est GFR (African American) 46.6 ml/min; Est GFR (Non-African American) 40.2 ml/min; Magnesium 1.9 mg/dl (1.7-2.4); Potassium 4.2 mmol/L (3.5-5.1)
[2021-10-12 06:42] LABS: Anisocytosis Present; Polychromasia 1+
[2021-10-12] MEDS: ALBUTEROL HFA 8 GM INHALER INH SCH (07:39)
[2021-10-12] MEDS: MULTIVITAMIN TAB PO SCH (07:51)
[2021-10-12] MEDS: APIXABAN 5 MG TABLET PO SCH ×2 (07:51→20:35)
[2021-10-12] MEDS: DOCUSATE SODIUM/SENNA 50/8.6MG TAB PO SCH (07:52)
[2021-10-12] MEDS: ASPIRIN 81 MG ECTAB PO SCH (07:52)
[2021-10-12] MEDS: ESCITALOPRAM OXALATE 10 MG TAB PO SCH (07:52)
[2021-10-12] MEDS: clonazePAM 0.5 MG TAB PO SCH ×2 (07:53→20:37)
[2021-10-12] MEDS ORDERED: ALBUTEROL HFA 8 GM INHALER INH PRN (09:12)
[2021-10-12] MEDS ORDERED: GADOBUTROL 7.5ML VIAL IV ONE (11:02)
--- NOTE | 2021-10-12 13:32 | Electrocardiogram Report ---
Test Reason : Blood Pressure : / mmHG Vent. Rate : 112 BPM Atrial Rate : 112 BPM P-R Int : 158 ms QRS Dur : 082 ms QT Int : 336 ms P-R-T Axes : 081 008 095 degrees QTc Int : 458 ms Sinus tachycardia Diffuse Nonspecific T wave abnormality Abnormal ECG When compared with ECG of 03-SEP-2021 10:40, Premature supraventricular complexes are no longer Present Nonspecific T wave abnormality now evident in Lateral leads Confirmed by Valente Barnhart ([id number]) on 10/12/2021 1:32:34 PM Referred By: REFERRED SELF Confirmed By:Valente Barnhart
--- NOTE | 2021-10-12 13:44 | Hospitalist Progress Note ---
Date of Service October 12, 2021 Assessment & Plan (1) Chest pain: Plan: Attending: Dr. Jessica Impression: 76-year-old female diagnosed with endometrial cancer 2 years ago and now with metastatic spread to the lung and to the brain. Brain lesion has grown from 1.2 to 1.6 cm. She is currently undergoing radiation. She also is undergoing chemotherapy and is followed by Dr. Peter formally and currently by Dr. Ellis. Approximately 2 days ago the patient noticed chest pain that started anterior in the fourth and fifth rib space and pushed through to her back. She has no diaphoresis. She does have some radiation of pain into her left arm. She has no other symptoms consistent with acute myocardial infarction. EKG shows nonspecific T wave forms. Troponin is slightly elevated and is a 72.8 with repeat 4 hours later 79.2. Patient is being admitted under observation for chest pain rule out. Patient's troponin is trending downward. No further chest pain. Continue to monitor with med/tele status No EKG changes. Hemodynamically stable Differential diagnosis includes anxiety. See below CTA of the chest negative for pulmonary embolus. There is some interseptal thickening consistent with pulmonary edema as well as known pulmonary nodules. Patient also has very small bilateral pleural effusions. Patient was given furosemide (2) Hypomagnesemia: Plan: Replete magnesium as needed. Follow serial labs No T wave changes on EKG Potassium level is within normal limits at 4.2 (3) Elevated troponin: Plan: Troponin on admission was slightly elevated at 72.8. Repeat troponin 79.2. Repeat troponin is 49.3 (4) Metastatic disease: Plan: Endometrial cancer diagnosed 2 years ago. Patient is undergoing chemotherapy and recently changed chemotherapeutic agent. Metastatic disease to the left lower lobe of the lung as well as to the brain Patient is to undergo whole brain radiation Continue management per oncology No indication for consult at this time (5) Hypercalcemia: Plan: Patient with known metastatic adenocarcinoma Currently calcium is at the high end of normal at 10.0 Follow serial labs No volume depletion. As a matter fact patient seems to be a little bit volume overloaded and we are giving 1 dose of furosemide No mental status changes (6) Anxiety: Plan: I suspect that anxiety is playing a major role in patient's current symptoms With medication changes, patient states that she feels better. Anxiety certainly is expected with the patient's metastatic disease Outpatient meds include 2 short acting benzodiazepines. Patient does not like taking them because they make her feel "loopy". Will discontinue patient's alprazolam and start her on clonazepam every 12 hours scheduled. Change lorazepam from 3 times daily scheduled to every 8 hours as needed for breakthrough anxiety We will also start patient on Lexapro 10 mg p.o. daily. Patient educated that this may make her feel more depressed initially for the first 7 to 14 days. Continue with supportive care with the patient's underlying anxiety. (7) Bilateral pleural effusion: Plan: Very small bilateral pleural effusions. Would not address these at this time. CT scan shows interlobular septal thickening most pronounced at lung bases. This seems to be consistent with early onset CHF. Patient received 40 mg of IV Lasix x1 Furosemide as needed based on presentation In as much as pleural effusions are bilateral, I doubt that this is directly ass ociated with the patient's left lower lobe metastatic disease. Continue to treat symptomatically (8) DVT (deep venous thrombosis): Plan: Patient is chronically anticoagulated with apixaban twice daily for history of DVT. We will continue this while inpatient Plan: Disposition: Patient seems to be significant improved from yesterday. Anticipate possible discharge tomorrow. Admission and Anticipated Discharge Date Admission Date: October 11, 2021 Subjective Attending: Dr. Jessica Chest pain has essentially resolved. She continues to have LE weakness but has not ambulated. I have asked her to walk the halls this afternoon. CT spine showed some DJD and some mild spinal cord narrowing. I spoke to Dr. Gaytan and he will review CT and MRI spine. No fever, chills, sweats. Tolerating diet. She denies any incontinence. She has no falls this hospital stay. She has no lightheadedness or dizziness. She denies any tachyarrhythmia. She has no other acute complaints. Review of Systems Review of Systems: A total of 10 systems was reviewed and is negative other than as listed in the HPI Physical Exam Physical Exam: GENERAL : No acute distress EYES: No icterus, gaze conjugate NOSE: No evidence of epistaxis MOUTH: No lesions or candidiasis NECK: Supple LUNGS: CTA B/L, no wheezes, rales or rhonchi HEART: Regular, rate controlled ABDOMEN: Soft, NT, ND, BS Present EXTREMITIES: No LE edema, pedal pulses intact NEURO: A&OX3. Pupils equal round react to light. Good sensation to bilateral lower extremities. Sensation is equal. Spontaneous movement of all extremities. No evidence of focal deficit to cranial nerves II through XII. Results & Data Results & Data ([facility]) Vital Signs (Past 12 Hours) Vital Signs Temp Pulse Pulse Resp BP Pulse Ox 10/12/21 11:40 36.6 C 96 H 16 103/71 93 10/12/21 08:17 36.9 C 110 H 18 112/77 95 10/12/21 07:40 98 H 16 93 10/12/21 07:12 90 10/12/21 04:03 36.6 C 92 H 20 98/67 L 93 Critical Care Results & Data Vital Signs (Past 12 Hours) Vital Signs Temp Pulse Pulse Resp BP Pulse Ox 10/12/21 20:25 36.8 C 101 H 14 99/60 L 94 10/12/21 16:45 36.5 C 16 116/81 94 10/12/21 15:00 92 H 10/12/21 11:40 36.6 C 96 H 16 103/71 93 Lab & Micro Results (Past 24 Hours) RBC 3.91 M/uL (4.2-5.4) L 10/12/21 WBC 4.97 K/uL (4.8-10.8) 10/12/21 Hgb 12.2 g/dL (12.0-16.0) 10/12/21 Hct 37.2 % (37-47) 10/12/21 MCV 95.1 fL (80-100) 10/12/21 MCH 31.2 pg (25-34) 10/12/21 MCHC 32.8 g/dL (32-36) 10/12/21 RDW Standard Deviation 75.9 fL (36.4-46.3) H 10/12/21 RDW Coefficient of Variation 21.6 % (11.5-14.5) H 10/12/21 Plt Count 158 K/uL (130-400) 10/12/21 MPV 11.7 fL (7.4-10.4) H 10/12/21 Neutrophils (%) (Auto) 66.2 % 10/12/21 Lymphocytes (%) (Auto) 17.1 % 10/12/21 Monocytes # (Auto) 0.75 K/uL (0.11-0.59) H 10/12/21 Eosinophils # (Auto) 0.06 K/uL (0-0.5) 10/12/21 Immature Granulocyte % (Auto) 0.2 % 10/12/21 Neutrophils # (Auto) 3.29 K/uL (1.4-6.5) 10/12/21 Lymphocytes # (Auto) 0.85 K/uL (1.2-3.4) L 10/12/21 Monocytes # (Auto) 0.75 K/uL (0.11-0.59) H 10/12/21 Eosinophils # (Auto) 0.06 K/uL (0-0.5) 10/12/21 Basophils # (Auto) 0.01 K/uL (0-0.2) 10/12/21 Immature Granulocyte # (Auto) 0.01 K/uL (0.00-0.02) 10/12/21 Polychromasia 1+ 10/12/21 Anisocytosis Present 10/12/21 Na 135 mmol/L (136-145) L 10/12/21 K 4.2 mmol/L (3.5-5.1) 10/12/21 Cl 102 mmol/L (98-107) 10/12/21 CO2 23 mmol/L (21-32) 10/12/21 Anion Gap 10 (3-11) 10/12/21 BUN 30 mg/dl (6-23) H 10/12/21 Creatinine 1.29 mg/dl (0.6-1.2) H 10/12/21 Estimated GFR ( Amer) 46.6 ml/min 10/12/21 Estimated GFR (Non-Af Amer) 40.2 ml/min 10/12/21 BUN/Creatinine Ratio 23.3 (10-20) H 10/12/21 Glu 74 mg/dl (70-99(Fasting)) 10/12/21 Ca 9.4 mg/dl (8.5-10.1) 10/12/21 Total Bilirubin 1.0 mg/dl (0.2-1.0) 10/12/21 Mg 1.9 mg/dl (1.7-2.4) 10/12/21 05:42 10/12/21 Calcium Level 9.4 mg/dl (8.5-10.1) 10/12/21 05:42 10/12/21 Diagnostic Findings (Past 24 Hours) Lumbar Spine MRI 10/12/21 09:32 MRI OF THE LUMBAR SPINE COMBO CLINICAL HISTORY: Bilateral lower extremity weakness. Reported history of endometrial cancer. COMPARISON STUDY: CT scan of the lumbar spine dated 10/11/2021. Abdominal CT dated 09/15/2021. TECHNIQUE: MRI of the lumbar spine is performed utilizing various T1 and T2- weighted sequences in the axial and sagittal planes. Contrast-enhanced sequences are acquired following the IV administration of 6 cc of Gadavist. FINDINGS: Lumbar spine: Vertebral body height and alignment are maintained throughout the lumbar spine. Marrow signal intensity is heterogeneous. Small anterior and lateral marginal osteophytes are seen throughout. The transverse and spinous processes appear intact. There is no spondylolysis. No destructive bony lesion is clearly seen. Chronic degenerative endplate change is seen at several levels. No significant endplate edema is identified. Vertebral discs: Degenerative disc desiccation and loss of height is seen throughout the lumbar spine. Loss of height is moderate to severe at L5-S1 and mild at the remaining lumbar levels. Spinal cord: The visualized spinal cord is normal in morphology and signal intensity. The conus medullaris terminates at the level of L2. The nerve roots of the cauda equina are normal in morphology. No abnormal postcontrast enhance ment is identified. L1-L2: Unremarkable. L2-L3: There is a small posterior disc bulge eccentric to the left. The central canal and neural foramina are patent. L3-L4: There is posterior disc bulge eccentric to the left. This abuts the transiting left-sided nerve roots. A small superiorly extruded fragment eccentric to left measures up to 8 mm as seen on sagittal image #9. There is no significant acquired compromise of the central canal. Lateral disc bulge is seen bilaterally. There is left-sided subarticular stenosis with possible impingement on the exiting left L3 nerve root. In conjunction with facet arthropathy there is mild bilateral neural foraminal stenosis. L4-L5: There is a small posterior disc bulge which abuts the transiting nerve roots. In conjunction with hypertrophy of the ligamentum flavum there is mild acquired compromise of the central canal at this level with a minimum AP diameter of 8 mm. Lateral disc bulge is seen bilaterally and contributes to left-sided subarticular stenosis. This may impinge on the exiting left L4 nerve root. In conjunction with facet arthropathy there is moderate left and mild right neural foraminal stenosis. L5-S1: A small posterior disc osteophyte complex abuts the transiting nerve roots. No significant acquired compromise of the central canal is identified. Lateral disc bulge is seen bilaterally and contributes to mild subarticular stenosis. This may abut the exiting bilateral L5 nerve roots. In conjunction with facet arthropathy there is moderate right and mild left neural foraminal stenosis. Sacrum: Imaged sacrum is normal in morphology and signal intensity. Soft tissues: There is fatty atrophy of the paraspinous musculature. No retroperitoneal lymphadenopathy is identified. Imaged portions of the kidneys are grossly normal. Hepatic cysts are partially visualized. A mass lesion in the left pelvis is partially visualized on the sagittal sequences. IMPRESSION: 1. Mild lumbosacral spondylosis as detailed above. See discussion for detailed level by level analysis. 2. There is a small superiorly extruded disc fragment at L3-L4 as above. 3. There is no MRI evidence of metastatic disease. 4. A mass lesion in the left pelvis is partially imaged on the sagittal sequences. This was better assessed on the recent abdominal CT. 5. Additional findings as above. Dictated: 10/12/2021 12:41 PM Transcribed: 10/12/2021 2:17 PM Yolette [id number] KELLEN_Kelvin Electronically signed by: Hossein Lobo M.D. 10/12/2021 2:19 PM I & O Totals 24 Hours 10/11/21 10/12/21 10/13/21 06:59 06:59 06:59 Intake Total 270 / 270 Output Total 200 / 200 Balance 270 / 270 -200 / -200 Cumulative 10/11/21 10:45 thru 10/12/21 19:33 Intake Total 270 Output Total 200 Balance 70 RT Ventilator Mngmt (Last Documented) Ventilator Ordered Settings Respiratory Rate 14 10/12/21 20:25 Ventilator - PT Measurements Respiratory Rate 14 PG Care Time/CCT Total # of Minutes Spent Total Time Spent with Patient: Total time spent is greater than 50% in coordination of care (as documented) at patient's floor/unit and/or counseling patient: Coding Level of Care Code 20082 Subseq Hosp Care Lvl 2 Diagnoses Chest pain R07.9 Hypomagnesemia E83.42 Elevated troponin R77.8 Metastatic disease C79.9 Area of secondary neoplastic involvement: unspecified site Hypercalcemia E83.52 Anxiety F41.9 Bilateral pleural effusion J90 DVT (deep venous thrombosis) I82.409 (1) Metastatic disease Area of secondary neoplastic involvement: unspecified site Qualified Code(s): C79.9 - Secondary malignant neoplasm of unspecified site
--- NOTE | 2021-10-12 14:20 | Magnetic Resonance Report ---
MRI OF THE LUMBAR SPINE COMBO CLINICAL HISTORY: Bilateral lower extremity weakness. Reported history of endometrial cancer. COMPARISON STUDY: CT scan of the lumbar spine dated 10/11/2021. Abdominal CT dated 09/15/2021. TECHNIQUE: MRI of the lumbar spine is performed utilizing various T1 and T2-weighted sequences in the axial and sagittal planes. Contrast-enhanced sequences are acquired following the IV administration of 6 cc of Gadavist. FINDINGS: Lumbar spine: Vertebral body height and alignment are maintained throughout the lumbar spine. Marrow signal intensity is heterogeneous. Small anterior and lateral marginal osteophytes are seen throughou t. The transverse and spinous processes appear intact. There is no spondylolysis. No destructive bony lesion is clearly seen. Chronic degenerative endplate change is seen at several levels. No significa nt endplate edema is identified. Vertebral discs: Degenerative disc desiccation and loss of height is seen throughout the lumbar spine . Loss of height is moderate to severe at L5-S1 and mild at the remaining lumbar levels. Spinal cord: The visualized spinal cord is normal in morphology and signal intensity. The conus medul emani terminates at the level of L2. The nerve roots of the cauda equina are normal in morphology. No abnormal postcontrast enhancement is identified. L1-L2: Unremarkable. L2-L3: There is a small posterior disc bulge eccentric to the left. The central canal and neural fora anjana are patent. L3-L4: There is posterior disc bulge eccentric to the left. This abuts the transiting left-sided nerv e roots. A small superiorly extruded fragment eccentric to left measures up to 8 mm as seen on sagitt al image #9. There is no significant acquired compromise of the central canal. Lateral disc bulge is seen bilaterally. There is left-sided subarticular stenosis with possible impingement on the exiting left L3 nerve root. In conjunction with facet arthropathy there is mild bilateral neural foraminal st enosis. L4-L5: There is a small posterior disc bulge which abuts the transiting nerve roots. In conjunction w ith hypertrophy of the ligamentum flavum there is mild acquired compromise of the central canal at th is level with a minimum AP diameter of 8 mm. Lateral disc bulge is seen bilaterally and contributes t o left-sided subarticular stenosis. This may impinge on the exiting left L4 nerve root. In conjunctio n with facet arthropathy there is moderate left and mild right neural foraminal stenosis. L5-S1: A small posterior disc osteophyte complex abuts the transiting nerve roots. No significant acq uired compromise of the central canal is identified. Lateral disc bulge is seen bilaterally and contr ibutes to mild subarticular stenosis. This may abut the exiting bilateral L5 nerve roots. In conjunct ion with facet arthropathy there is moderate right and mild left neural foraminal stenosis. Sacrum: Imaged sacrum is normal in morphology and signal intensity. Soft tissues: There is fatty atrophy of the paraspinous musculature. No retroperitoneal lymphadenopat hy is identified. Imaged portions of the kidneys are grossly normal. Hepatic cysts are partially visu alized. A mass lesion in the left pelvis is partially visualized on the sagittal sequences. IMPRESSION: 1. Mild lumbosacral spondylosis as detailed above. See discussion for detailed level by level analysi s. 2. There is a small superiorly extruded disc fragment at L3-L4 as above. 3. There is no MRI evidence of metastatic disease. 4. A mass lesion in the left pelvis is partially imaged on the sagittal sequences. This was better as sessed on the recent abdominal CT. 5. Additional findings as above. Dictated: 10/12/2021 12:41 PM Transcribed: 10/12/2021 2:17 PM Yolette [id number] KELLEN[facility] Electronically signed by: Hossein Lobo M.D. 10/12/2021 2:19 PM
--- NOTE | 2021-10-12 14:44 | Electrocardiogram Report ---
Test Reason : Blood Pressure : / mmHG Vent. Rate : 101 BPM Atrial Rate : 101 BPM P-R Int : 166 ms QRS Dur : 080 ms QT Int : 348 ms P-R-T Axes : 076 057 087 degrees QTc Int : 451 ms Sinus tachycardia with Premature supraventricular complexes Diffuse Nonspecific T wave abnormality Abnormal ECG When compared with ECG of 11-OCT-2021 11:00, Premature supraventricular complexes are now Present Confirmed by Valente Barnhart ([id number]) on 10/12/2021 2:44:09 PM Referred By: REFERRED SELF Confirmed By:Valente Barnhart
[2021-10-12] MEDS: POLYETHYLENE (MIRALAX) 17 GM PACK PO PRN (20:37)
[2021-10-12] MEDS ORDERED: LENVIMA PO SCH (21:00)
[2021-10-13] MEDS ORDERED: LEVOTHYROXINE SODIUM 75 MCG TABLET PO SCH (06:30)
[2021-10-13] MEDS: clonazePAM 0.5 MG TAB PO SCH (09:30)
[2021-10-13] MEDS: APIXABAN 5 MG TABLET PO SCH (09:30)
[2021-10-13] MEDS: ASPIRIN 81 MG ECTAB PO SCH (09:30)
[2021-10-13] MEDS: ESCITALOPRAM OXALATE 10 MG TAB PO SCH (09:30)
[2021-10-13] MEDS: MULTIVITAMIN TAB PO SCH (09:30)
[2021-10-13] MEDS: DOCUSATE SODIUM/SENNA 50/8.6MG TAB PO SCH (09:33)
--- NOTE | 2021-10-13 09:51 | Orthopedic Consultation ---
Date of Consultation October 13, 2021 Assessment & Plan (1) Lumbar spondylosis: MRI and CAT scan of the lumbar spine available for review. They demonstrate multiple levels of spondylosis facet hypertrophy but no evidence of severe spinal stenosis or gross neural compression. There is no evidence of metastatic disease. There is a description of a mass in the left hemipelvis. At this point based on her imaging I cannot explain her lower extremity weakness. There is no gross neural compression and she does not have claudicant type pain. We may need to move forward with an MRI of the pelvis to further define the pelvic mass. We may also have to have neurology evaluate her on a nonurgent basis. History of Present Illness Reason for Consultation: Leg weakness with ambulation Attending Physician: Seymour Jessica History of Present Illness This is a very pleasant 76-year-old female with significant medical history including endometrial cancer. She notes that over the past several months she experienced a sensation of weakness to the lower extremities with short distances. Requires her to sit down. She denies any numbness or tingling in the lower extremities denies any radicular type pain into the lower extremities. She is comfortable at rest. Allergies Allergy/AdvReac Type Severity Reaction Status Date / Time No Known Allergies Allergy Verified 10/11/21 14:49 Home Medications Medication Instructions Recorded Confirmed Type multivitamin 1 tab PO QAM 12/18/19 10/11/21 History apixaban 5 mg tablet (Eliquis) 5 mg PO BID 01/11/20 10/11/21 History fluticasone propionate 50 2 spray INTRANASAL .EVERY 24 HOURS 09/03/21 10/11/21 History mcg/actuation nasal PRN spray,suspension (Flonase Allergy Relief) lenvatinib 20 mg/day (10 mg x 2) 20 mg PO QPM 09/03/21 10/11/21 History capsule (Lenvima) sennosides 8.6 mg-docusate sodium 1 tab PO QAM #30 tab 09/05/21 10/11/21 Rx 50 mg tablet (Senokot-S) acetaminophen 325 mg tablet 650 mg PO Q4 PRN MDD 3g 09/14/21 10/11/21 History cetirizine 10 mg tablet (Zyrtec) 10 mg PO DAILY PRN 09/14/21 10/11/21 History cocoa butter-shark liver oil 1 supp RI BID PRN 09/14/21 10/11/21 History rectal suppository lorazepam 0.5 mg tablet 0.5 mg PO TID 09/14/21 10/11/21 History alprazolam 0.5 mg tablet 0.5 mg PO DAILY PRN 10/11/21 10/11/21 History diclofenac sodium 1 % topical gel 2 g TOPICAL TID PRN 10/11/21 10/11/21 History levothyroxine 50 mcg tablet 50 mcg PO DAILYBB 10/11/21 10/11/21 History Patient History Medical History (Updated 10/13/21 @ 09:50 by Og Gaytan DO) Anxiety no medications Carcinoma of ovary, stage 4 Has had MRI & PET scans. Depression no medications DVT (deep venous thrombosis) Left leg. Dx'ed November 2019. On Eliquis Dyspnea Endometrial adenocarcinoma History of chemotherapy Carboplatin + Taxol x6 cycles (-05/06/2020), Bevacizumab added starting cycle 2 Doxil + Avastin (01/2021-05/2021) Pembrolizumab/Lenvima (07/21/2021-Current) Left hip pain Lung nodule Mediastinal lymphadenopathy Metastatic cancer to lung Multiple pulmonary nodules determined by computed tomography of lung Presumed metastatic disease Peritoneal carcinomatosis Pneumothorax Shortness of breath on exertion Surgical History History of arthroscopy of right knee History of bronchoscopy (12/28/19) + Endobronchial Lymph Node Biopsy History of colonoscopy History of lung biopsy (08/04/21) Left History of tonsillectomy History of tooth extraction Port-A-Cath in place (01/17/20) Insertion of Mediport with Fluoroscopy Dr. Thomas 01/17/20 Family History Mother Colorectal cancer Father No problems noted. Daughter No problems noted. Daughter No problems noted. Brother No problems noted. Sister No problems noted. Sister No problems noted. 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 She demonstrates plus 5 out of 5 bilateral extensor houses longus plantar flexion dorsiflexion quadriceps. Sensory is symmetric and intact. She has no evidence of ankle clonus. Results & Data ([facility]) Vital Signs (Past 12 Hours) Vital Signs Temp Pulse Pulse Resp BP Pulse Ox 10/13/21 08:16 36.4 C L 113 H 24 114/77 96 10/13/21 07:10 99 H 10/13/21 04:45 36.8 C 101 H 14 118/84 97 10/12/21 23:46 36.8 C 106 H 16 123/84 95 10/12/21 23:00 96 H
[2021-10-13 11:40] VITALS: O2SAT 94
--- NOTE | 2021-10-13 14:46 | Discharge Summary ---
Date of Service October 13, 2021 Admission HPI Per Admitting Provider Attending: Dr. Jessica Is a 76-year-old female who presents with chest pain. 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 Patient presents with a 2-day history of chest pain. Her is with her at this time and there thinking that it may be partially related to anxiety. We discussed reasons for anxiety and they revolve around her cancer. She is most concerned that she will have pain. Following that she is concerned about those that she will leave behind. She is always been anxious. Her states that she gets tearful at times. Home medications include alprazolam every morning and lorazepam 3 times daily as needed. Patient is not on an antidepressant. She is not on any long-acting benzodiazepines. She is hesitant to take the alprazolam or lorazepam because she states that it makes her "loopy". Patient states her chest pain is located just lateral to the sternum and the fourth the fifth intercostal spaces and feels like it radiates straight through to her back. She has no flank pain. She has no shortness of breath. She has no awareness of tachyarrhythmia. She has no fever. She denies hemoptysis. She has no lower extremity edema or asymmetry. She is chronically anticoagulated on apixaban for previous DVT. Patient denies shortness of breath or chest pain with exertion. She has no diaphoresis. She did have 1 episode of chills last night. Patient was diagnosed with her cancer 2 years ago and has been followed by Dr. Peter and recently by Dr. Ellis. She follows with Dr. Willson in the pulmonary office for her pulmonary lesions. Patient has no other acute complaints at this time. We had discussion regarding CODE STATUS. Patient is clear that she wants to be DNR/DNI. present in the room and affirms her decision. Discharge Data Allergies Allergy/AdvReac Type Severity Reaction Status Date / Time No Known Allergies Allergy Verified 10/11/21 14:49 Consultations 10/11/21 14:43 ED Decision to Admit Stat 10/12/21 18:34 Consult Orthopedic Surgery Routine Ordered Studies 10/11/21 11:17 CT angio chest PE protocol Stat 10/11/21 16:56 CT lumbar spine wo con Routine CT thoracic spine wo con Routine 10/12/21 09:32 MR lumbar spine wo/w con Routine Hospital Course (1) Chest pain: Attending: Dr. Jessica Impression: 76-year-old female diagnosed with endometrial cancer 2 years ago and now with metastatic spread to the lung and to the brain. Brain lesion has grown from 1.2 to 1.6 cm. She is currently undergoing radiation. She also is undergoing chemotherapy and is followed by Dr. Peter formally and currently by Dr. Ellis. Approximately 2 days ago the patient noticed chest pain that started anterior in the fourth and fifth rib space and pushed through to her back. She has no diaphoresis. She does have some radiation of pain into her left arm. She has no other symptoms consistent with acute myocardial infarction. EKG shows nonspecific T wave forms. Troponin is slightly elevated and is a 72.8 with repeat 4 hours later 79.2. Patient is being admitted under observation for chest pain rule out. Patient's troponin is trending downward. No further chest pain. Continue to monitor with med/tele status No EKG changes. Hemodynamically stable Differential diagnosis includes anxiety. See below CTA of the chest negative for pulmonary embolus. There is some interseptal thickening consistent with pulmonary edema as well as known pulmonary nodules. Patient also has very small bilateral pleural effusions. Patient was given furosemide (2) Hypomagnesemia: Replete magnesium as needed. Follow serial labs No T wave changes on EKG Potassium level is within normal limits at 4.2 (3) Elevated troponin: Troponin on admission was slightly elevated at 72.8. Repeat troponin 79.2. Repeat troponin is 49.3 (4) Metastatic disease: Endometrial cancer diagnosed 2 years ago. Patient is undergoing chemotherapy and recently changed chemotherapeutic agent. Metastatic disease to the left lower lobe of the lung as well as to the brain Patient is to undergo whole brain radiation Continue management per oncology No indication for consult at this time (5) Hypercalcemia: Patient with known metastatic adenocarcinoma Currently calcium is at the high end of normal at 10.0 Follow serial labs No volume depletion. As a matter fact patient seems to be a little bit volume overloaded and we are giving 1 dose of furosemide No mental status changes (6) Anxiety: I suspect that anxiety is playing a major role in patient's current symptoms With medication changes, patient states that she feels better. Anxiety certainly is expected with the patient's metastatic disease Outpatient meds include 2 short acting benzodiazepines. Patient does not like taking them because they make her feel "loopy". Will discontinue patient's alprazolam and start her on clonazepam every 12 hours scheduled. Change lorazepam from 3 times daily scheduled to every 8 hours as needed for breakthrough anxiety We will also start patient on Lexapro 10 mg p.o. daily. Patient educated that this may make her feel more depressed initially for the first 7 to 14 days. Continue with supportive care with the patient's underlying anxiety. (7) Bilateral pleural effusion: Very small bilateral pleural effusions. Would not address these at this time. CT scan shows interlobular septal thickening most pronounced at lung bases. This seems to be consistent with early onset CHF. Patient received 40 mg of IV Lasix x1 Furosemide as needed based on presentation In as much as pleural effusions are bilateral, I doubt that this is directly associated with the patient's left lower lobe metastatic disease. Continue to treat symptomatically (8) DVT (deep venous thrombosis): Patient is chronically anticoagulated with apixaban twice daily for history of DVT. We will continue this while inpatient Disposition: Patient seems to be significant improved from yesterday. Anticipate possible discharge tomorrow. Discharge Plan Discharge Items Patient Disposition: Home - Self-Care Reason For Visit: CHEST PAIN Discharge Diagnosis: Chest pain Activity: Resume your previous activity Lifting: Gradually increase as tolerated Bathing: No limitations Sexual Activity: When tolerated Exercise/Sports: Gradually increase as tolerated Weightbearing: Full weightbearing Non-emergency contact: Primary Care Provider Call non-emergency contact if: your symptoms worsen and you have a fever Follow-up/Referrals: Lucinda Smith MD [Primary Care Provider] - Diet: Heart Healthy Addtl Attending Provider Instructions: You were admitted for chest pain rule out. You had an elevated troponin which trended down. You had no suspicious changes to your EKG. You did have some haziness on your CXR so we are treating you with an antibiotic (Doxycycline) for 7 days. You should stay out of direct sunlight while taking this medication. Your medications for anxiety were also adjusted. You should take your Clonazepam twice daily and Ativan only as needed. You were also started on Lexapro. You should take this daily. Regarding your leg weakness, you had a CT and an MRI of your back and have some chronic changes to your spine. You were seen by an orthopedic spine surgeon and, at this time, do not require any surgery. If symptoms persist, you should talk to your family doctor about a referral to a neurologist fo further evaluation. There is also mention of a mass lesion in the left pelvis. You should discuss this with your oncologist to see if further workup or imaging is warranted. Please take all of your medications as prescribed and keep all follow up appointments as scheduled. Pending Studies at Discharge: No Stand-Alone Forms: My [facility] Medications and DC Order Prescriptions: New levothyroxine [Synthroid] 75 mcg Tablet 75 mcg PO DAILYBB Qty: 30 RF: 0 lorazepam 0.5 mg Tablet 0.5 mg PO Q8H PRN (Reason: anxiety) Qty: 20 RF: 0 escitalopram oxalate 10 mg Tablet 10 mg PO QAM Qty: 30 RF: 0 doxycycline hyclate 100 mg capsule 100 mg PO BID 7 Days Qty: 14 RF: 0 Continued multivitamin Tablet 1 tab PO QAM RF: 0 Eliquis 5 mg tablet 5 mg PO BID RF: 0 cetirizine [Zyrtec] 10 mg Tablet 10 mg PO DAILY PRN (Reason: allergies) RF: 0 Preparation H Suppository 1 supp WI BID PRN (Reason: rectal pressure) RF: 0 acetaminophen 325 mg Tablet 650 mg PO Q4 MDD 3g PRN (Reason: pain level 1-5) RF: 0 levothyroxine 50 mcg tablet 50 mcg PO DAILYBB RF: 0 diclofenac sodium 1 % gel 2 g TOPICAL TID PRN (Reason: Pain) RF: 0 fluticasone propionate [Flonase Allergy Relief] 50 mcg/actuation spray,suspension 2 spray intranasal .EVERY 24 HOURS PRN (Reason: allergies) RF: 0 Lenvima 20 mg/day (10 mg x 2) capsule 20 mg PO QPM RF: 0 sennosides-docusate sodium [Senokot-S] 8.6-50 mg Tablet 1 tab PO QAM Qty: 30 RF: 0 Discontinued lorazepam 0.5 mg Tablet 0.5 mg PO TID RF: 0 alprazolam 0.5 mg tablet 0.5 mg PO DAILY PRN (Reason: Anxiety) RF: 0 Discharge Orders: Discharge Order (Routine); Ordered 10/13/21 Ordered By: Hossein Bell Admission Data Admit Date/Time: 10/11/21 15:33 Attending Provider: Seymour Jessica Admit Provider: Seymour Jessica Primary Care Provider: Lucinda Smith Other Providers: Seymour Jessica ; Og Gaytan Coding Diagnoses Chest pain R07.9 Hypomagnesemia E83.42 Elevated troponin R77.8 Metastatic disease C79.9 Area of secondary neoplastic involvement: unspecified site Hypercalcemia E83.52 Anxiety F41.9 Bilateral pleural effusion J90 DVT (deep venous thrombosis) I82.409
[2021-10-13 15:59] VITALS: BP 115/79; PULSE 97; TEMP 97.2
--- NOTE | 2021-10-14 07:57 | Electrocardiogram Report ---
Test Reason : Blood Pressure : / mmHG Vent. Rate : 101 BPM Atrial Rate : 101 BPM P-R Int : 176 ms QRS Dur : 088 ms QT Int : 316 ms P-R-T Axes : 075 021 097 degrees QTc Int : 409 ms Sinus tachycardia with Premature supraventricular complexes Diffuse Nonspecific T wave abnormality Abnormal ECG When compared with ECG of 12-OCT-2021 07:35, No significant change was found Confirmed by Valente Barnhart ([id number]) on 10/14/2021 7:57:07 AM Referred By: REFERRED SELF Confirmed By:Valente Barnhart
== END 2021-10-13 16:31 | disposition home or self-care (01) ==
LOC: ED 10:53 → 2S 10:53
DX: J90 Pleural effusion, not elsewhere classified; Z86.718 Personal history of other venous thrombosis and embolism; Z92.21 Personal history of antineoplastic chemotherapy; R77.8 Other specified abnormalities of plasma proteins; F41.9 Anxiety disorder, unspecified; C54.1 Malignant neoplasm of endometrium; Z87.891 Personal history of nicotine dependence; C78.02 Secondary malignant neoplasm of left lung; E83.42 Hypomagnesemia; Z79.01 Long term (current) use of anticoagulants; R07.9 Chest pain, unspecified; Z98.890 Other specified postprocedural states; Z79.899 Other long term (current) drug therapy; M47.816 Spondylosis without myelopathy or radiculopathy, lumbar region

== ENCOUNTER 2021-10-29 10:27 | Observation (INO) ==
[2021-10-29 11:27] LABS: Basophils # (auto) 0.02 K/uL (0-0.2); Basophils % (auto) 0.3 %; Eosinophils # (auto) 0.14 K/uL (0-0.5); Eosinophils % (auto) 1.9 %; Hematocrit (blood only) 34.4 % (37-47); Hemoglobin 10.9 g/dL (12.0-16.0); Immature Granulocytes # (auto) 0.02 K/uL (0.00-0.02); Immature Granulocytes % (auto) 0.3 %; Lymphocytes # (auto) 0.74 K/uL (1.2-3.4); Lymphocytes % (auto) 9.8 %; Mean Corpuscular Hemoglobin 31.2 pg (25-34); Mean Corpuscular Hgb Conc 31.7 g/dL (32-36); Mean Corpuscular Volume 98.6 fL (80-100); Monocytes # (auto) 0.73 K/uL (0.11-0.59); Monocytes % (auto) 9.7 %; Neutrophils # (auto) 5.89 K/uL (1.4-6.5); Platelet Count 248 K/uL (130-400); Red Blood Count 3.49 M/uL (4.2-5.4); White Blood Count 7.54 K/uL (4.8-10.8)
--- NOTE | 2021-10-29 11:35 | XRay Report ---
SINGLE VIEW CHEST CLINICAL HISTORY: Dyspnea. FINDINGS: An AP, portable, upright chest radiograph is compared to study dated 09/03/2021 and correlat ed with chest CT dated 10/27/2021. A left internal jugular central venous infusion port is unchanged i n position. The heart is enlarged noting atherosclerotic calcification of the thoracic ureter. There is pulmonary vascular congestion. Emphysematous change is again noted. There are layering pleural eff usions with bibasilar consolidation. No pneumothorax is seen. The skeletal structures are osteopenic. The bony thorax is grossly intact. IMPRESSION: 1. Cardiomegaly and emphysema with evidence of congestive failure. 2. Small pleural effusions with bibasilar consolidation ACT 112: Negative or not required by law. Electronically signed by: Hossein Lobo M.D. 10/29/2021 11:34 AM
--- NOTE | 2021-10-29 11:43 | Emergency Department Note ---
Impression & Plan Breath shortness, CHF (congestive heart failure), Acute pericardial effusion, Effusion, pericardium, Pleural effusion, Multiple pulmonary nodules determined by computed tomography of lung ED Provider Note NAME: ROHIT ACOSTA AGE: 76 SEX: F : 1945 ARRIVES VIA: Walk-In INFORMANT: Patient ED PROVIDER(S): Mamadou Estrada DO CHIEF COMPLAINT: shortness of breath HPI: Patient is a 76-year-old female who presents to ER for shortness of breath. 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 Shortness of breath has been getting worse for the past 1 to 2 days. She denies any new belly pain, nausea, vomiting, or diarrhea. She admits to swelling over the left lower extremity. No dysuria, urgency, or frequency. No other exacerbating or remitting factors. She has not missed any doses of her apixaban that she is aware of. She had appointment with pulmonology today but was referred in for shortness of breath. No history of heart failure. She admits to an intermittent cough. No loss of taste or smell. No runny nose. ROS: See above HPI for pertinent positives & negatives. A total of 10 systems reviewed and were otherwise negative. PAST MEDICAL HISTORY:See Below PAST SURGICAL HISTORY:See Below FAMILY HISTORY:See Below SOCIAL HISTORY:See Below HOME MEDICATIONS:See Below ALLERGIES:See Below VITALS:See Below PHYSICAL EXAMINATION: GENERAL: Sitting up in bed, alert, ill-appearing, disheveled, no acute distress talking in full sentences EYE EXAM: normal conjunctiva. OROPHARYNX: no exudate, no erythema, lips, buccal mucosa, and tongue normal and mucous membranes are moist NECK: supple, no nuchal rigidity, no adenopathy, non-tender LUNGS: Crackles bilaterally bases Normal chest wall mechanics HEART: no murmurs, S1 normal and S2 normal ABDOMEN: abdomen soft, non-tender, normo-active bowel sounds, no masses, no rebo und or guarding. UPPER EXTREMITIES: upper extremities are grossly normal. LOWER EXTREMITIES: Pitting edema in the left lower extremity NEURO EXAM: Normal sensorium, cranial nerves II-XII grossly intact, normal speech, no gross weakness of arms, no gross weakness of legs. MEDICAL DECISION MAKING: Patient is a 76-year-old female who presents ER for the above-stated complaint. IV was established blood work was obtained. Labs show no significant leukocytosis. Mild anemia 10.9. INR was unremarkable. BMP with slightly elevated chloride at 109. LFTs were unremarkable. T bili was normal. Magnesium was slightly low at 1.6. proBNP was elevated at nearly 8000. UA was contaminated. Doppler lower extremity showed no DVT. Chest x-ray with pleural effusions. Patient was given IV Lasix. She was updated bedside. Discussed with hospitalist for further evaluation. We were able to complete an echo in the ER which did not show pericardial effusion. This will be further worked up by the hospitalist Triage Nursing notes reviewed. Limited review of prior medical records performed Vital Signs: reviewed and remarkable for tachy Differential diagnosis: Differential diagnoses includes but is not limited to pneumonia, bronchitis, COPD/Asthma exacerbation, pneumothorax, pulmonary embolism, congestive heart failure, acute coronary syndrome ER treatment provided: See below Diagnostics interpreted by me: ECG: Sinus tachycardia rate of 102 PVCs present Normal axis Nonspecific ST wave changes in the lateral leads QTC 422 No significant change from previous in September Cardiac Monitoring: An order was placed for continuous cardiac monitoring. The monitor shows a rate of 98 with sinus rhythm. Laboratory studies: As stated above and show below. Imaging studies: Venous duplex was negative for any DVT Chest x-ray showed pleural effusion and cephalization Consultation(s): Discussed with Seymour Phillips for further evaluation Procedures: none Critical Care: None Past Med/Surg History Medical History (Updated 10/29/21 @ 17:56 by Mamadou Estrada DO) Anxiety no medications Carcinoma of ovary, stage 4 Has had MRI & PET scans. Chest pain Depression no medications DVT (deep venous thrombosis) Left leg. Dx'ed November 2019. On Eliquis Dyspnea Dyspnea Elevated troponin Endometrial adenocarcinoma History of chemotherapy Carboplatin + Taxol x6 cycles (-05/06/2020), Bevacizumab added starti ng cycle 2 Doxil + Avastin (01/2021-05/2021) Pembrolizumab/Lenvima (07/21/2021-Current) Left hip pain Lung nodule Mediastinal lymphadenopathy Metastatic cancer to lung Multiple pulmonary nodules determined by computed tomography of lung Presumed metastatic disease Peritoneal carcinomatosis Pneumothorax Shortness of breath on exertion Surgical History History of arthroscopy of right knee History of bronchoscopy (12/28/19) + Endobronchial Lymph Node Biopsy History of colonoscopy History of lung biopsy (08/04/21) Left History of tonsillectomy History of tooth extraction Port-A-Cath in place (01/17/20) Insertion of Mediport with Fluoroscopy Dr. Thomas 01/17/20 Family History Mother Colorectal cancer Father No problems noted. Daughter No problems noted. Daughter No problems noted. Brother No problems noted. Sister No problems noted. Sister No problems noted. Other Cancer No family history of adverse response to anesthesia Social History Smoking Status: Former smoker Tobacco Type: Cigarettes packs per day: 1; Years Smoked: 40; Cigarettes Per Day: 20; Number of Years Since Quit: 8; Second Hand Exposure: No; Hx Alcohol Use: No Hx Substance Use: No Preferred Language: Senegalese Communication Ability: Effective Visual Impairment: Limited Hearing Ability: Normal Director Public Required: No Beliefs That Will Affect Care: None marital status: Current Living Situation: Alone Current Living Situation Comment: will be home in 2 weeks current occupational status: retired How many Children do You have: 2 Feels Safe at Home: Yes Childhood Exposure to Second-Hand Smoke: Yes caffeine: No during the past year weight has: decreased > 10 lbs Dental Care, Regularly: No Assistive Devices: Glasses Allergies Allergies Allergy/AdvReac Type Severity Reaction Status Date / Time No Known Allergies Allergy Verified 10/29/21 14:41 Home Meds Home Medications Medication Instructions Recorded Confirmed multivitamin 1 tab PO QAM 12/18/19 10/29/21 apixaban 5 mg tablet (Eliquis) 5 mg PO BID 01/11/20 10/29/21 fluticasone propionate 50 2 spray INTRANASAL .EVERY 24 HOURS 09/03/21 10/29/21 mcg/actuation nasal PRN spray,suspension (Flonase Allergy Relief) acetaminophen 325 mg tablet 650 mg PO Q4 PRN MDD 3g 09/14/21 10/29/21 Previous Rx's Medication Instructions Recorded sennosides 8.6 mg-docusate sodium 1 tab PO QAM #30 tab 09/05/21 50 mg tablet (Senokot-S) escitalopram oxalate 10 mg tablet 10 mg PO QAM #30 tab 10/13/21 levothyroxine 75 mcg tablet 75 mcg PO DAILYBB #30 tab 10/13/21 (Synthroid) Results & Data (ED) Vital Signs Vital Signs - 24 hr 10/29/21 10:37 10/29/21 11:00 10/29/21 11:21 Temperature 36.6 C Temperature Source Temporal Artery Scan Pulse Rate 117 H Pulse Rate [Apical] 98 H Pulse Rhythm [Apical] Regular Respiratory Rate 20 22 Respiratory Effort / Characteristics SOB on Exertion Short of Breath SOB on Exertion Respiratory Depth Normal Normal Respiratory Pattern Regular Tachypnea Blood Pressure 189/78 H Blood Pressure [Right Arm] 134/72 Blood Pressure Mean 115 Blood Pressure Mean [Right Arm] 92 Blood Pressure Position [Right Arm] Lying Pulse Oximetry 93 96 Oxygen Delivery Method Room Air Room Air Room Air Sepsis Recent Fever Within 48 Hours No Sepsis New/Unexplained Change in Mental Status No Sepsis Action Taken by Nursing No Action Required 10/29/21 12:45 10/29/21 14:00 10/29/21 16:55 Temperature Temperature Source Pulse Rate Pulse Rate [Apical] 98 H 91 H 96 H Pulse Rhythm [Apical] Regular Regular Respiratory Rate 16 18 18 Respiratory Effort / Characteristics Non-Labored Non-Labored Spontaneous Non-Labored Spontaneous Respiratory Depth Normal Normal Normal Respiratory Pattern Regular Blood Pressure Blood Pressure [Right Arm] 136/86 177/81 H 129/68 Blood Pressure Mean Blood Pressure Mean [Right Arm] 102 113 88 Blood Pressure Position [Right Arm] Lying Pulse Oximetry 96 94 97 Oxygen Delivery Method Room Air Room Air Room Air Sepsis Recent Fever Within 48 Hours Sepsis New/Unexplained Change in Mental Status Sepsis Action Taken by Nursing Laboratory Data Result diagrams: 10/29/21 11:10 10/29/21 11:10 Lab Results 10/29/21 10/29/21 10/29/21 Range/Units 11:10 11:10 11:10 WBC 7.54 (4.8-10.8) K/uL RBC 3.49 L (4.2-5.4) M/uL Hgb 10.9 L (12.0-16.0) g/dL Hct 34.4 L (37-47) % MCV 98.6 (80-100) fL MCH 31.2 (25-34) pg MCHC 31.7 L (32-36) g/dL RDW Std Deviation 80.0 H (36.4-46.3) fL RDW Coeff of Colleen 22.0 H (11.5-14.5) % Plt Count 248 (130-400) K/uL MPV 10.0 (7.4-10.4) fL Immature Gran % (Auto) 0.3 % Neut % (Auto) 78.0 % Lymph % (Auto) 9.8 % [place] % (Auto) 9.7 % Eos % (Auto) 1.9 % Baso % (Auto) 0.3 % Neut # (Auto) 5.89 (1.4-6.5) K/uL Lymph # (Auto) 0.74 L (1.2-3.4) K/uL [place] # (Auto) 0.73 H (0.11-0.59) K/uL Eos # (Auto) 0.14 (0-0.5) K/uL Baso # (Auto) 0.02 (0-0.2) K/uL Immature Gran # (Auto) 0.02 (0.00-0.02) K/uL Anisocytosis Present PT 10.7 (9.0-12.0) Seconds INR 1.0 (0.9-1.1) APTT 25.6 (21.0-31.0) Seconds PTT Ratio 0.9 Sodium 140 (136-145) mmol/L Potassium 3.9 (3.5-5.1) mmol/L Chloride 109 H (98-107) mmol/L Carbon Dioxide 22 (21-32) mmol/L Anion Gap 9 (3-11) BUN 20 (6-23) mg/dl Creatinine 0.70 (0.6-1.2) mg/dl Est Cr Clr Drug Dosing 60.1 ml/min Est GFR ( Amer) 97.5 ml/min Est GFR (Non-Af Amer) 84.2 ml/min BUN/Creatinine Ratio 28.6 H (10-20) Glucose 82 (70-99(Fasting)) mg/dl Calcium 8.6 (8.5-10.1) mg/dl Magnesium 1.6 L (1.7-2.4) mg/dl Total Bilirubin 0.7 (0.2-1.0) mg/dl AST 35 (13-39) U/L ALT 37 (7-52) U/L Alkaline Phosphatase 123 H (34-104) U/L Troponin I High Sens 11.0 D (0-14) pg/ml B-Natriuretic Peptide (0-100) pg/ml Total Protein 5.9 L (6.0-8.3) gm/dl Albumin 3.5 (3.4-5.0) gm/dl Globulin 2.4 L (2.5-4.0) gm/dl Albumin/Globulin Ratio 1.5 (0.9-2) Urine Color Urine Appearance (Clear) Urine pH (4.5-7.5) Ur Specific [place] (1.000-1.030) Urine Protein (Negative) Urine Glucose (UA) (Negative) Urine Ketones (Negative) Urine Blood (Negative) Urine Nitrite (Negative) Urine Bilirubin (Negative) Urine Urobilinogen (Negative) Ur Leukocyte Esterase (Negative) Urine WBC (Auto) (0-5) /hpf Urine RBC (Auto) (0-4) /hpf U Hyaline Cast (Auto) (0-5) /lpf U Epithel Cells (Auto) (0-5) /lpf Urine Bacteria (Auto) (Negative) Ur Renal Epithelial Cell Ur Random Creatinine mg/dl U Random Total Protein (0-11.9) mg/dl Protein/Creatinin Ratio (0-0.2) SARS-CoV-2, RNA, NAAT (NEGATIVE) 10/29/21 10/29/21 10/29/21 Range/Units 11:10 14:17 14:17 WBC (4.8-10.8) K/uL RBC (4.2-5.4) M/uL Hgb (12.0-16.0) g/dL Hct (37-47) % MCV (80-100) fL MCH (25-34) pg MCHC (32-36) g/dL RDW Std Deviation (36.4-46.3) fL RDW Coeff of Colleen (11.5-14.5) % Plt Count (130-400) K/uL MPV (7.4-10.4) fL Immature Gran % (Auto) % Neut % (Auto) % Lymph % (Auto) % [place] % (Auto) % Eos % (Auto) % Baso % (Auto) % Neut # (Auto) (1.4-6.5) K/uL Lymph # (Auto) (1.2-3.4) K/uL [place] # (Auto) (0.11-0.59) K/uL Eos # (Auto) (0-0.5) K/uL Baso # (Auto) (0-0.2) K/uL Immature Gran # (Auto) (0.00-0.02) K/uL Anisocytosis PT (9.0-12.0) Seconds INR (0.9-1.1) APTT (21.0-31.0) Seconds PTT Ratio Sodium (136-145) mmol/L Potassium (3.5-5.1) mmol/L Chloride (98-107) mmol/L Carbon Dioxide (21-32) mmol/L Anion Gap (3-11) BUN (6-23) mg/dl Creatinine (0.6-1.2) mg/dl Est Cr Clr Drug Dosing ml/min Est GFR ( Amer) ml/min Est GFR (Non-Af Amer) ml/min BUN/Creatinine Ratio (10-20) Glucose (70-99(Fasting)) mg/dl Calcium (8.5-10.1) mg/dl Magnesium (1.7-2.4) mg/dl Total Bilirubin (0.2-1.0) mg/dl AST (13-39) U/L ALT (7-52) U/L Alkaline Phosphatase (34-104) U/L Troponin I High Sens (0-14) pg/ml B-Natriuretic Peptide 963 H (0-100) pg/ml Total Protein (6.0-8.3) gm/dl Albumin (3.4-5.0) gm/dl Globulin (2.5-4.0) gm/dl Albumin/Globulin Ratio (0.9-2) Urine Color Yellow Urine Appearance Clear (Clear) Urine pH 5.0 (4.5-7.5) Ur Specific [place] 1.022 (1.000-1.030) Urine Protein 1+ H (Negative) Urine Glucose (UA) Negative (Negative) Urine Ketones Trace H (Negative) Urine Blood Negative (Negative) Urine Nitrite Negative (Negative) Urine Bilirubin Negative (Negative) Urine Urobilinogen Negative (Negative) Ur Leukocyte Esterase 1+ H (Negative) Urine WBC (Auto) 10-30 H (0-5) /hpf Urine RBC (Auto) 0-4 (0-4) /hpf U Hyaline Cast (Auto) 5-10 H (0-5) /lpf U Epithel Cells (Auto) >30 H (0-5) /lpf Urine Bacteria (Auto) Negative (Negative) Ur Renal Epithelial Cell Not Reportable Ur Random Creatinine 121.0 mg/dl U Random Total Protein 37.3 H (0-11.9) mg/dl Protein/Creatinin Ratio 0.3 H (0-0.2) SARS-CoV-2, RNA, NAAT (NEGATIVE) 10/29/21 Range/Units 15:50 WBC (4.8-10.8) K/uL RBC (4.2-5.4) M/uL Hgb (12.0-16.0) g/dL Hct (37-47) % MCV (80-100) fL MCH (25-34) pg MCHC (32-36) g/dL RDW Std Deviation (36.4-46.3) fL RDW Coeff of Colleen (11.5-14.5) % Plt Count (130-400) K/uL MPV (7.4-10.4) fL Immature Gran % (Auto) % Neut % (Auto) % Lymph % (Auto) % [place] % (Auto) % Eos % (Auto) % Baso % (Auto) % Neut # (Auto) (1.4-6.5) K/uL Lymph # (Auto) (1.2-3.4) K/uL [place] # (Auto) (0.11-0.59) K/uL Eos # (Auto) (0-0.5) K/uL Baso # (Auto) (0-0.2) K/uL Immature Gran # (Auto) (0.00-0.02) K/uL Anisocytosis PT (9.0-12.0) Seconds INR (0.9-1.1) APTT (21.0-31.0) Seconds PTT Ratio Sodium (136-145) mmol/L Potassium (3.5-5.1) mmol/L Chloride (98-107) mmol/L Carbon Dioxide (21-32) mmol/L Anion Gap (3-11) BUN (6-23) mg/dl Creatinine (0.6-1.2) mg/dl Est Cr Clr Drug Dosing ml/min Est GFR ( Amer) ml/min Est GFR (Non-Af Amer) ml/min BUN/Creatinine Ratio (10-20) Glucose (70-99(Fasting)) mg/dl Calcium (8.5-10.1) mg/dl Magnesium (1.7-2.4) mg/dl Total Bilirubin (0.2-1.0) mg/dl AST (13-39) U/L ALT (7-52) U/L Alkaline Phosphatase (34-104) U/L Troponin I High Sens (0-14) pg/ml B-Natriuretic Peptide (0-100) pg/ml Total Protein (6.0-8.3) gm/dl Albumin (3.4-5.0) gm/dl Globulin (2.5-4.0) gm/dl Albumin/Globulin Ratio (0.9-2) Urine Color Urine Appearance (Clear) Urine pH (4.5-7.5) Ur Specific [place] (1.000-1.030) Urine Protein (Negative) Urine Glucose (UA) (Negative) Urine Ketones (Negative) Urine Blood (Negative) Urine Nitrite (Negative) Urine Bilirubin (Negative) Urine Urobilinogen (Negative) Ur Leukocyte Esterase (Negative) Urine WBC (Auto) (0-5) /hpf Urine RBC (Auto) (0-4) /hpf U Hyaline Cast (Auto) (0-5) /lpf U Epithel Cells (Auto) (0-5) /lpf Urine Bacteria (Auto) (Negative) Ur Renal Epithelial Cell Ur Random Creatinine mg/dl U Random Total Protein (0-11.9) mg/dl Protein/Creatinin Ratio (0-0.2) SARS-CoV-2, RNA, NAAT NEGATIVE (NEGATIVE) Administered Medications Discontinued Medications Furosemide (Furosemide 40 Mg/4 Ml Vial) 40 mg IV NOW STA Stop: 10/29/21 13:43 Last Admin: 10/29/21 14:09 Dose: 40 mg Documented by: [id number] Magnesium Sulfate/Dextrose (Magnesium Sulfate / D5w) 1 gm in 100 mls @ 100 mls/hr IV NOW STA Stop: 10/29/21 15:01 Last Infusion: 10/29/21 15:29 Dose: 0 mls/hr Documented by: [id number] Admin: 10/29/21 14:09 Dose: 100 mls/hr Documented by: [id number] Imaging Data Radiologist's Impression: Chest X-Ray 10/29/21 11:12 SINGLE VIEW CHEST CLINICAL HISTORY: Dyspnea. FINDINGS: An AP, portable, upright chest radiograph is compared to study dated 09/03/2021 and correlated with chest CT dated 10/27/2021. A left internal jugular central venous infusion port is unchanged in position. The heart is enlarged noting atherosclerotic calcification of the thoracic ureter. There is pulmonary vascular congestion. Emphysematous change is again noted. There are layering pleural effusions with bibasilar consolidation. No pneumothorax is seen. The skeletal structures are osteopenic. The bony thorax is grossly intact. IMPRESSION: 1. Cardiomegaly and emphysema with evidence of congestive failure. 2. Small pleural effusions with bibasilar consolidation ACT 112: Negative or not required by law. Electronically signed by: Hossein Lobo M.D. 10/29/2021 11:34 AM Venous Doppler Study 10/29/21 11:38 ULTRASOUND LEFT LOWER EXTREMITY VENOUS CLINICAL HISTORY: Left leg swelling. COMPARISON STUDY: Left lower extremity venous ultrasound dated 12/05/2019. TECHNIQUE: Real-time, grayscale, and color Doppler sonography of the deep veins of the left lower extremity was performed from the inguinal crease to the calf. Compression and augmentation were utilized. FINDINGS: There is no sonographic evidence of deep venous thrombosis identified in the left lower extremity. The common femoral, superficial femoral, and popliteal veins are patent and normally compressible. The greater saphenous vein and the profunda femoris vein at the junction with the common femoral vein are clear. The visualized calf veins are patent. IMPRESSION: There is no sonographic evidence of deep venous thrombosis identified in the left lower extremity. ACT 112: Negative or not required by law. Electronically signed by: Hossein Lobo M.D. 10/29/2021 12:29 PM Discharge Plan Visit Data Chief Complaint: Shortness of Breath/Dyspnea Stated Complaint: SOB- CANCER/FLUID ON LUNGS ED Provider: Mamadou Estrada Discharge Problem: Breath shortness, CHF (congestive heart failure), Acute pericardial effusion, Effusion, pericardium, Pleural effusion, Multiple pulmonary nodules determined by computed tomography of lung Forms Stand Alone Forms: My [facility] Prescriptions Prescriptions: No Action multivitamin Tablet 1 tab PO QAM RF: 0 Eliquis 5 mg tablet 5 mg PO BID RF: 0 acetaminophen 325 mg Tablet 650 mg PO Q4 MDD 3g PRN (Reason: pain level 1-5) RF: 0 levothyroxine [Synthroid] 75 mcg Tablet 75 mcg PO DAILYBB Qty: 30 RF: 0 escitalopram oxalate 10 mg Tablet 10 mg PO QAM Qty: 30 RF: 0 fluticasone propionate [Flonase Allergy Relief] 50 mcg/actuation spray,suspension 2 spray intranasal .EVERY 24 HOURS PRN (Reason: allergies) RF: 0 sennosides-docusate sodium [Senokot-S] 8.6-50 mg Tablet 1 tab PO QAM Qty: 30 RF: 0 Referrals Referrals: Lucinda Smith MD [Primary Care Provider] -
[2021-10-29 11:45] LABS: Anisocytosis Present
[2021-10-29 11:47] LABS: Partial Thromboplastin Ratio 0.9; Partial Thromboplastin Time 25.6 Seconds (21.0-31.0); Prothrombin Time 10.7 Seconds (9.0-12.0)
[2021-10-29 12:05] LABS: Albumin Globulin Ratio 1.5 (0.9-2); Albumin Level 3.5 gm/dl (3.4-5.0); BUN Creatinine Ratio 28.6 (10-20); Bilirubin,Total 0.7 mg/dl (0.2-1.0); Calcium 8.6 mg/dl (8.5-10.1); Creatinine Clr Calc Pharmacy 60.1 ml/min; Est GFR (African American) 97.5 ml/min; Est GFR (Non-African American) 84.2 ml/min; Globulin 2.4 gm/dl (2.5-4.0); Magnesium 1.6 mg/dl (1.7-2.4); Potassium 3.9 mmol/L (3.5-5.1); Total Protein 5.9 gm/dl (6.0-8.3)
--- NOTE | 2021-10-29 12:30 | Ultrasound Report ---
ULTRASOUND LEFT LOWER EXTREMITY VENOUS CLINICAL HISTORY: Left leg swelling. COMPARISON STUDY: Left lower extremity venous ultrasound dated 12/05/2019. TECHNIQUE: Real-time, grayscale, and color Doppler sonography of the deep veins of the left lower ext remity was performed from the inguinal crease to the calf. Compression and augmentation were utilized . FINDINGS: There is no sonographic evidence of deep venous thrombosis identified in the left lower ext remity. The common femoral, superficial femoral, and popliteal veins are patent and normally compress ible. The greater saphenous vein and the profunda femoris vein at the junction with the common femora l vein are clear. The visualized calf veins are patent. IMPRESSION: There is no sonographic evidence of deep venous thrombosis identified in the left lower e xtremity. ACT 112: Negative or not required by law. Electronically signed by: Hossein Lobo M.D. 10/29/2021 12:29 PM
[2021-10-29] MEDS ORDERED: FUROSEMIDE 40 MG/4 ML VIAL IV STA (13:42)
[2021-10-29] MEDS ORDERED: MAGNESIUM SULFATE / D5W 1 GM/100 ML BAG IV STA (14:02)
--- NOTE | 2021-10-29 14:59 | History & Physical Report ---
Date of Service October 29, 2021 Assessment & Plan (1) Hypervolemia: Plan: Associated proteinuria but suspect multifactorial with her metastatic cancer and chemotherapy. TTE to reassess for heart failure as the main cause Lasix 40mg IV given in ER, not on diuretics at home. Continue Lasix 40mg IV daily Low salt diet, no need to fluid restrict as not significantly hypervolemic and diuretic naive. (2) Endometrial adenocarcinoma: Plan: Currently undergoing chemoradiation (3) Hypothyroidism (acquired): Plan: TSH 1.175 [10/21/21] Continue levothyroxine 75 mcg PO daily (4) Hypomagnesemia: Plan: Mg level 1.6 Replace with 1g IV Mg sulphate Repeat level in AM (5) DVT (deep venous thrombosis): Plan: Diagnosed in 2019, Remains on Eliquis 5mg PO BID Plan: VTE Prophylaxis - Eliquis Diet - low Na Disposition - observation status to med/tele Admission and Anticipated Discharge Date Admission Date: October 29, 2021 History of Present Illness Chief Complaint: Shortness of breath Primary Care Provider: Lucinda Smith MD Carey Miller is a 76 year old with 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 She reports this has slowly been getting worse but appeared to be much worse over the last 2 days. Significant associated orthopnea adn leg swelling. No chest pain, claudication of palpitations. She was notably admitted from October 11 - 2021 due to chest pain. At that time her chest pain was thought to be more musculoskeletal or anxiety related. She was noted to be mildly hypervolemic on that occasion in addition however and was given Lasix 40mg IV during the admission. She was not however discharged on Lasix. She has no known history fo a heart attack. In the ER she is on room air. CXR concerning for congestive failure. She was given Lasix 40mg IV and referred to medicine for admission and ongoing management of new onset CHF. Allergies Allergy/AdvReac Type Severity Reaction Status Date / Time No Known Allergies Allergy Verified 10/29/21 14:41 Home Medications Medication Instructions Recorded Confirmed Type multivitamin 1 tab PO QAM 12/18/19 10/29/21 History apixaban 5 mg tablet (Eliquis) 5 mg PO BID 01/11/20 10/29/21 History fluticasone propionate 50 2 spray INTRANASAL .EVERY 24 HOURS 09/03/21 10/29/21 History mcg/actuation nasal PRN spray,suspension (Flonase Allergy Relief) sennosides 8.6 mg-docusate sodium 1 tab PO QAM #30 tab 09/05/21 10/29/21 Rx 50 mg tablet (Senokot-S) acetaminophen 325 mg tablet 650 mg PO Q4 PRN MDD 3g 09/14/21 10/29/21 History escitalopram oxalate 10 mg tablet 10 mg PO QAM #30 tab 10/13/21 10/29/21 Rx levothyroxine 75 mcg tablet 75 mcg PO DAILYBB #30 tab 10/13/21 10/29/21 Rx (Synthroid) Past Med/Surg History Medical History (Updated 10/29/21 @ 17:56 by Mamadou Estrada DO) Anxiety no medications Carcinoma of ovary, stage 4 Has had MRI & PET scans. Chest pain Depression no medications DVT (deep venous thrombosis) Left leg. Dx'ed November 2019. On Eliquis Dyspnea Dyspnea Elevated troponin Endometrial adenocarcinoma History of chemotherapy Carboplatin + Taxol x6 cycles (-05/06/2020), Bevacizumab added starting cycle 2 Doxil + Avastin (01/2021-05/2021) Pembrolizumab/Lenvima (07/21/2021-Current) Left hip pain Lung nodule Mediastinal lymphadenopathy Metastatic cancer to lung Multiple pulmonary nodules determined by computed tomography of lung Presumed metastatic disease Peritoneal carcinomatosis Pneumothorax Shortness of breath on exertion Surgical History History of arthroscopy of right knee History of bronchoscopy (12/28/19) + Endobronchial Lymph Node Biopsy History of colonoscopy History of lung biopsy (08/04/21) Left History of tonsillectomy History of tooth extraction Port-A-Cath in place (01/17/20) Insertion of Mediport with Fluoroscopy Dr. Thomas 01/17/20 Family History Mother Colorectal cancer Father No problems noted. Daughter No problems noted. Daughter No problems noted. Brother No problems noted. Sister No problems noted. Sister No problems noted. Other Cancer No family history of adverse response to anesthesia Social History Smoking Status: Former smoker Tobacco Type: Cigarettes packs per day: 1; Years Smoked: 40; Cigarettes Per Day: 18; Smoking End Date: 2005; Number of Years Since Quit: 8; Second Hand Exposure: No; Hx Alcohol Use: No Hx Substance Use: No Preferred Language: [place] Communication Ability: Effective Visual Impairment: Limited Hearing Ability: Normal Food Beverage Server Required: No Beliefs That Will Affect Care: None marital status: Current Living Situation: Spouse Current Living Situation Comment: in house current occupational status: retired How many Children do You have: 2 Other Information That Helps Us Care for You: No Feels Safe at Home: Yes Safety Concerns: Feels Safe At This Time Childhood Exposure to Second-Hand Smoke: Yes caffeine: No during the past year weight has: decreased > 10 lbs Dental Care, Regularly: No Assistive Devices: None Review of Systems Review of Systems: All systems reviewed & are unremarkable except as noted in HPI & below Physical Exam Constitutional: WD/WN, vitals as above no acute distress Eyes: PERRL, conjunctivae normal, anicteric sclerae ENMT: external ear and nose normal, oropharynx normal Neck: trachea midline, no thyromegaly Respiratory: normal respiratory effort; no respiratory distress Auscultation: + crackles (biabsal); no diminished lung sounds, no rales, no rhonchi and no wheezes Cardiovascular: Rate/Rhythm: regular rate and regular rhythm Heart Sounds: no murmur Vessels: + JVD Extremities: normal capillary refill and + pedal edema (1+ pre-tibial b/l equal); no calf tenderness Gastrointestinal (Abdomen): normal bowel sounds, soft, nontender, no hepatosplenomegaly Musculoskeletal: no cyanosis or clubbing, extremities motor strength 5/5 Skin: no rashes, warm and dry Neurologic: moves all extremities and awake; not confused Psychiatric: A+Ox3, euthymic affect Genitourinary: no CVA tenderness Results & Data Results & Data ([facility]) Vital Signs (Past 12 Hours) Vital Signs Temp Pulse Pulse Resp BP BP Pulse Ox 10/29/21 14:00 91 H 18 177/81 H 94 10/29/21 12:45 98 H 16 136/86 96 10/29/21 11:00 98 H 22 134/72 96 10/29/21 10:37 36.6 C 117 H 20 189/78 H 93 Laboratory Results Abnormal lab results 10/29/21 10/29/21 10/29/21 Range/Units 11:10 11:10 11:10 RBC 3.49 L (4.2-5.4) M/uL Hgb 10.9 L (12.0-16.0) g/dL Hct 34.4 L (37-47) % MCHC 31.7 L (32-36) g/dL RDW Std Deviation 80.0 H (36.4-46.3) fL RDW Coeff of Colleen 22.0 H (11.5-14.5) % Lymph # (Auto) 0.74 L (1.2-3.4) K/uL Harney # (Auto) 0.73 H (0.11-0.59) K/uL Chloride 109 H (98-107) mmol/L BUN/Creatinine Ratio 28.6 H (10-20) Magnesium 1.6 L (1.7-2.4) mg/dl Alkaline Phosphatase 123 H (34-104) U/L B-Natriuretic Peptide 963 H (0-100) pg/ml Total Protein 5.9 L (6.0-8.3) gm/dl Globulin 2.4 L (2.5-4.0) gm/dl Urine Protein (Negative) Urine Ketones (Negative) Ur Leukocyte Esterase (Negative) Urine WBC (Auto) (0-5) /hpf U Hyaline Cast (Auto) (0-5) /lpf U Epithel Cells (Auto) (0-5) /lpf U Random Total Protein (0-11.9) mg/dl Protein/Creatinin Ratio (0-0.2) 10/29/21 10/29/21 Range/Units 14:17 14:17 RBC (4.2-5.4) M/uL Hgb (12.0-16.0) g/dL Hct (37-47) % MCHC (32-36) g/dL RDW Std Deviation (36.4-46.3) fL RDW Coeff of Colleen (11.5-14.5) % Lymph # (Auto) (1.2-3.4) K/uL Harney # (Auto) (0.11-0.59) K/uL Chloride (98-107) mmol/L BUN/Creatinine Ratio (10-20) Magnesium (1.7-2.4) mg/dl Alkaline Phosphatase (34-104) U/L B-Natriuretic Peptide (0-100) pg/ml Total Protein (6.0-8.3) gm/dl Globulin (2.5-4.0) gm/dl Urine Protein 1+ H (Negative) Urine Ketones Trace H (Negative) Ur Leukocyte Esterase 1+ H (Negative) Urine WBC (Auto) 10-30 H (0-5) /hpf U Hyaline Cast (Auto) 5-10 H (0-5) /lpf U Epithel Cells (Auto) >30 H (0-5) /lpf U Random Total Protein 37.3 H (0-11.9) mg/dl Protein/Creatinin Ratio 0.3 H (0-0.2) Diagnostic Findings SINGLE VIEW CHEST CLINICAL HISTORY: Dyspnea. FINDINGS: An AP, portable, upright chest radiograph is compared to study dated 09/03/2021 and correlated with chest CT dated 10/27/2021. A left internal jugular central venous infusion port is unchanged in position. The heart is enlarged noting atherosclerotic calcification of the thoracic ureter. There is pulmonary vascular congestion. Emphysematous change is again noted. There are layering pleural effusions with bibasilar consolidation. No pneumothorax is seen. The skeletal structures are osteopenic. The bony thorax is grossly intact. IMPRESSION: 1. Cardiomegaly and emphysema with evidence of congestive failure. 2. Small pleural effusions with bibasilar consolidation ULTRASOUND LEFT LOWER EXTREMITY VENOUS CLINICAL HISTORY: Left leg swelling. COMPARISON STUDY: Left lower extremity venous ultrasound dated 12/05/2019. TECHNIQUE: Real-time, grayscale, and color Doppler sonography of the deep veins of the left lower extremity was performed from the inguinal crease to the calf. Compression and augmentation were utilized. FINDINGS: There is no sonographic evidence of deep venous thrombosis identified in the left lower extremity. The common femoral, superficial femoral, and popliteal veins are patent and normally compressible. The greater saphenous vein and the profunda femoris vein at the junction with the common femoral vein are clear. The visualized calf veins are patent. IMPRESSION: There is no sonographic evidence of deep venous thrombosis identified in the left lower extremity. Medications Administered ER Medications Given: Lasix 40mg IV ECG Indication: SOB/dyspnea Rate (beats per minute): 102 Rhythm: sinus tachycardia Findings: + PVC; no acute ischemic change Comparison ECG Date: from (October 13, 2021) Change: the following changes noted (PVCs now present) Code Status & VTE Plan VTE Prophylaxis Plan VTE Prophylaxis will be ordered: Yes PG Care Time/CCT Total # of Minutes Spent Total Time Spent with Patient: Total time spent is greater than 50% in coordination of care (as documented) at patient's floor/unit and/or counseling patient: Coding Level of Care Code INT OBSERVATION CARE 50M LVL 2 Diagnoses Hypervolemia E87.70 Hypothyroidism (acquired) E03.9 Endometrial adenocarcinoma C54.1 Hypomagnesemia E83.42 DVT (deep venous thrombosis) I82.409
[2021-10-29 15:11] LABS: Appearance Urine Clear (Clear); Bacteria Urine Automated Negative (Negative); Bilirubin Urine Negative (Negative); Blood Urine Negative (Negative); Color Urine Yellow; Epithelial Cell Urine Auto >30 /lpf (0-5); Glucose Urine UA Negative (Negative); Ketones Urine Trace (Negative); Leukocyte Esterase Urine 1+ (Negative); Nitrite Urine Negative (Negative); Protein Urine 1+ (Negative); RBC Urine Automated 0-4 /hpf (0-4); Specific Gravity Urine 1.022 (1.000-1.030); Urobilinogen Urine Negative (Negative)
[2021-10-29 15:37] LABS: Protein Creatinine Ratio Urine 0.3 (0-0.2); Total Protein Urine Random 37.3 mg/dl (0-11.9)
--- NOTE | 2021-10-29 17:07 | XCELERA ---
[id number]
--- NOTE | 2021-10-29 17:23 | Electrocardiogram Report ---
Test Reason : Blood Pressure : / mmHG Vent. Rate : 102 BPM Atrial Rate : 102 BPM P-R Int : 158 ms QRS Dur : 074 ms QT Int : 324 ms P-R-T Axes : 073 034 097 degrees QTc Int : 422 ms Poor data quality, interpretation may be adversely affected Sinus tachycardia with occasional Premature ventricular complexes Abnormal ECG When compared with ECG of 13-OCT-2021 06:19, Premature ventricular complexes are now Present Premature supraventricular complexes are no longer Present Nonspecific T wave abnormality, worse in Lateral leads Confirmed by Jimmie Waller ([id number]) on 10/29/2021 5:22:57 PM Referred By: REFERRED SELF Confirmed By:Doug Waller
[2021-10-29] MEDS ORDERED: POLYETHYLENE (MIRALAX) 17 GM PACK PO PRN (18:49)
[2021-10-29] MEDS ORDERED: ONDANSETRON INJ 2 MG/ML 2 ML VIAL IV PRN (18:49)
[2021-10-29] MEDS ORDERED: ACETAMINOPHEN 325 MG TAB PO PRN (18:49)
[2021-10-29] MEDS: APIXABAN 5 MG TABLET PO SCH (20:18)
[2021-10-30] MEDS: LEVOTHYROXINE SODIUM 75 MCG TABLET PO SCH (06:09)
[2021-10-30 08:14] LABS: BUN Creatinine Ratio 26.7 (10-20); Calcium 8.1 mg/dl (8.5-10.1); Creatinine Clr Calc Pharmacy 59.6 ml/min; Est GFR (African American) 89.7 ml/min; Est GFR (Non-African American) 77.4 ml/min; Magnesium 1.8 mg/dl (1.7-2.4)
[2021-10-30] MEDS ORDERED: FUROSEMIDE 40 MG/4 ML VIAL IV SCH (09:00)
[2021-10-30] MEDS: MULTIVITAMIN TAB PO SCH (09:33)
[2021-10-30] MEDS: APIXABAN 5 MG TABLET PO SCH ×2 (09:33→20:11)
[2021-10-30] MEDS: ESCITALOPRAM OXALATE 10 MG TAB PO SCH (09:33)
[2021-10-30] MEDS: DOCUSATE SODIUM/SENNA 50/8.6MG TAB PO SCH (09:33)
--- NOTE | 2021-10-30 10:44 | Hospitalist Progress Note ---
Date of Service October 30, 2021 Assessment & Plan (1) CHF (congestive heart failure): Plan: Carey Miller is a 76 year old female with stage IV endometrial adenocarcinoma with metastasis to brain and lung treated with Keytruda/Lenvima (started 07/21) presenting with 2 days of SOB at rest without chest pain. Acute systolic CHF: - etiology Keytruda cardiac toxicity vs increased salt intake in last week - patient regained appetite in last week and has been eating more salty foods - has had mild SOB on exertion for 1 year, no SOB at rest previously - chest xray on admission with bilateral pleural effusions - echo EF 35-40%, mild global hypokinesis, mild to mod aortic regurg, mod mitral regurg -echo from 01/2021 and 06/2021 EF 55-60% - IV lasix 40mg today, consider switching to PO tomorrow AM - Appreciate cardiology consult (2) Endometrial adenocarcinoma: Plan: Metastatic to brain and lungs. With several trials of chemotherapy and one recent trial of RTx. Follows with Dr. Ellis. - Patient is waiting to hear back from heme/onc Dr. Ellis about recent imaging to get a better idea of her prognosis and treatment options. She is currently on salvage chemotherapy with Keytruda and Lenvima. - f/u with Dr. Ellis scheduled for Friday 11/03 - Will consider palliative care consultation (most likely as outpatient) - Will continue to discuss goals of care while hospitalized (3) Hypothyroidism (acquired): Plan: -TSH 1.175 on 10/21/21 -continue home levothyroxine 75mcg PO QD (4) Anxiety: Plan: - continue home escitalopram 10mg PO QAM (5) DVT (deep venous thrombosis): Plan: History of DVT in November 2019 -no DVT in lower extremities on doppler on admission -continue home apixaban 5mg PO BID (6) Constipation: Plan: -ondansetron hcl 4mg IV q6H PRN -polyethylene glycoll 17gm PO QD PRN -senna/docusate sodium 1tab PO QAM (7) Hypomagnesemia: Plan: -Mg level 1.6 on admission -> 1.8 on 10/30 -Replaced with 1g IV Mg sulphate in ED Admission and Anticipated Discharge Date Admission Date: October 29, 2021 Supervising Physician Co-Signing Physician Notes Attending attestation Pt seen and examined in concert with Dr. Fernandez, St. Dr. Loya. In agreement with the documented findings as noted in the student/resident documentation with any exceptions or additions as noted here. Continuing improvement in shortness of breath on diuresis approaching baseline SOBOE. Tearful when discussing general prognosis and health course, supported by spouse, Aurelio V/S reviewed. On examination, S1/S2 nl RRR no MCG. CTAB. Abd NT/ND BS+ve. Trace b/l LE edema to the midshin. HFrEF - newly appreciated reduced global function without bellweather event and with Keytruda use. Cardiology consult - continue diuresis with furosemide at current dose and monitor I/Os, BMP Metastatic endometrial adenocarcenoma to the brain, lungs - established with Dr. Ellis without inpatient consultation at present. Patient is considering 'moving to [place]' for 'assisted ' but without acute plan or similar. Unknown prior discussion re: goals of care and impact of metastatic diagnosis to be re viewed gradually during admission. Hypomagnesemia - repleted as above Else see resident/student documentation as noted. Subjective Carey Miller feels less SOB this morning, has had increased urinary frequency and volume since starting IV lasix. No chest pain or cough. Review of Systems Review of Systems: no fever or chills Respiratory: some SOB, no cough Cardiovascular: Additional Comments: no chest pain or palpitations Gastrointestinal: no abdominal pain, no constipation or diarrhea Genitourinary: no dysuria Physical Exam Constitutional: resting comfortably in bed, no acute distress Respiratory: normal respiratory effort, diminished lung sounds in bases, no crackles Cardiovascular: RRR no murmurs appreciated, trace edema in left lower extremity, no edema in right leg Gastrointestinal (Abdomen): soft and nontender Musculoskeletal: warm and dry Neurologic: A&Ox3 Results & Data Results & Data ([facility]) Vital Signs (Past 12 Hours) Vital Signs Temp Pulse Resp BP Pulse Ox 10/30/21 06:52 36.7 C 76 18 108/71 96 10/30/21 03:54 36.6 C 88 18 104/69 93 10/30/21 00:00 36.7 C 69 18 121/69 97 (1) CHF (congestive heart failure) Heart failure chronicity: acute Heart failure type: systolic Qualified Code(s): I50.21 - Acute systolic (congestive) heart failure
--- NOTE | 2021-10-30 16:36 | Cardiology Consultation ---
Date of Consultation October 30, 2021 Assessment & Plan (1) CHF (congestive heart failure): (2) Effusion, pericardium: (3) Breath shortness: (4) Chest pain: (5) Valvular heart disease: 1. Shortness of breath: This appears to be related to pulmonary vascular congestion. She certainly has some underlying lung disease and an element of anemia. However she did describe orthopnea and had evidence of volume overload both on x-ray and laboratory evaluation. She seemed to respond quite well to intravenous diuretics. Her breathing is much improved. 2. Left ventricular systolic failure: The etiology of her pulmonary edema is her reduced LV systolic function. This is a new finding. Overall, the most common form of reduced LV systolic function is due to coronary artery disease. However, she does not report symptoms consistent with angina. She has been exposed to multiple chemotherapeutic agents some of which are known to have cardiac toxicity. She was admitted approximately 1 month ago at mildly elevated biomarkers. Some of these agents are also known to cause an element of myocarditis. We did discuss options for evaluation. While my suspicion for an ischemic etiology is quite low, we did discuss a workup in this regard. However, she wishes to avoid any additional interventions or procedures and I do not believe an ischemic evaluation is therefore necessary. We can treat her according to symptoms. She will need to be discharged on a daily dose of diuretic. She could probably start with 20 mg of Lasix daily. We talked about a sodium restriction. She can be placed on metoprolol succinate 25 mg daily as well. She can be followed in the outpatient setting and we can discuss additional management such as the initiation of Yasmany inhibition or even spironolactone. Clearly quality of life is the most important factor in her care. 3. Valvular heart disease: His aortic and mitral valve disease. No specific treatment other than what is mentioned above. 4. Pericardial effusion: Small. Most likely related to her malignancy. History of Present Illness Reason for Consultation: Dyspnea on exertion, reduced LV systolic function Requesting Physician: Jim Attending Physician: Nathan Crow MD History of Present Illness Patient is a 76-year-old woman with a history of metastatic cancer who has been experiencing symptoms of dyspnea on exertion. She has also had some dyspnea at rest. For several months she has noticed some element of exercise intolerance. This is manifest both by a sense of fatigue as well as mild dyspnea. Most noticeable when at ascending stairs. This was not accompanied by any sense of exertional chest pain or dizziness. Over the past 3 days her symptoms have worsened significantly. Patient states that her breathing is much more difficulty and she could not lie down due to dyspnea. He also had a sense of chest pressure or fullness. She did not describe this as pain. Based on the symptoms she presented for evaluation and was discovered on echocardiography to have significantly reduced LV systolic function. For year and half she has been fairly sedentary. She has been through different chemotherapies and recently completed radiation therapy as well. She does notice some tachycardia with activity but no resting palpitations. She generally does not have symptoms of dizziness or lightheadedness, only mild orthostatic type symptoms. She generally does not have orthopnea. She has not suffered a recent syncopal episode. She generally does not have lower extremity edema are any distended abdomen. Currently she is feeling well. She was resting in a relatively supine position earlier today. She states that her breathing is back to normal and she has been ambulatory around the room. Allergies Allergy/AdvReac Type Severity Reaction Status Date / Time No Known Allergies Allergy Verified 10/29/21 14:41 Home Medications Medication Instructions Recorded Confirmed Type multivitamin 1 tab PO QAM 12/18/19 10/29/21 History apixaban 5 mg tablet (Eliquis) 5 mg PO BID 01/11/20 10/29/21 History fluticasone propionate 50 2 spray INTRANASAL .EVERY 24 HOURS 09/03/21 10/29/21 History mcg/actuation nasal PRN spray,suspension (Flonase Allergy Relief) sennosides 8.6 mg-docusate sodium 1 tab PO QAM #30 tab 09/05/21 10/29/21 Rx 50 mg tablet (Senokot-S) acetaminophen 325 mg tablet 650 mg PO Q4 PRN MDD 3g 09/14/21 10/29/21 History escitalopram oxalate 10 mg tablet 10 mg PO QAM #30 tab 10/13/21 10/29/21 Rx levothyroxine 75 mcg tablet 75 mcg PO DAILYBB #30 tab 10/13/21 10/29/21 Rx (Synthroid) Patient History Medical History (Updated 10/30/21 @ 16:48 by Jimmie Waller MD) Anxiety no medications Carcinoma of ovary, stage 4 Has had MRI & PET scans. Chest pain Depression no medications DVT (deep venous thrombosis) Left leg. Dx'ed November 2019. 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 History of chemotherapy Carboplatin + Taxol x6 cycles (-05/06/2020), Bevacizumab added starting cycle 2 Doxil + Avastin (01/2021-05/2021) Pembrolizumab/Lenvima (07/21/2021-Current) Left hip pain Lung nodule Mediastinal lymphadenopathy Metastatic cancer to lung Multiple pulmonary nodules determined by computed tomography of lung Presumed metastatic disease Peritoneal carcinomatosis Pneumothorax Shortness of breath on exertion Surgical History History of arthroscopy of right knee History of bronchoscopy (12/28/19) + Endobronchial Lymph Node Biopsy History of colonoscopy History of lung biopsy (08/04/21) Left History of tonsillectomy History of tooth extraction Port-A-Cath in place (01/17/20) Insertion of Mediport with Fluoroscopy Dr. Thomas 01/17/20 Family History Mother Colorectal cancer Father No problems noted. Daughter No problems noted. Daughter No problems noted. Brother No problems noted. Sister No problems noted. Sister No problems noted. Other Cancer No family history of adverse response to anesthesia Social History Smoking Status: Former smoker Tobacco Type: Cigarettes packs per day: 1; Years Smoked: 40; Cigarettes Per Day: 18; Smoking End Date: 2005; Number of Years Since Quit: 8; Second Hand Exposure: No; Hx Alcohol Use: No Hx Substance Use: No Preferred Language: [place] Communication Ability: Effective Visual Impairment: Limited Hearing Ability: Normal Salesperson Shoes Required: No Beliefs That Will Affect Care: None marital status: Current Living Situation: Spouse Current Living Situation Comment: in house current occupational status: retired How many Children do You have: 2 Other Information That Helps Us Care for You: No Feels Safe at Home: Yes Safety Concerns: Feels Safe At This Time Childhood Exposure to Second-Hand Smoke: Yes caffeine: No during the past year weight has: decreased > 10 lbs Dental Care, Regularly: No Assistive Devices: Glasses Review of Systems Review of Systems: Per HPI Physical Exam Physical Exam: She is alert and oriented x3. Mood affect appear normal. She answered all questions appropriately. HEENT: Sclerae are anicteric. Pupils are equal and reactive to light and accommodation. Extraocular movements were intact. Neuro: Cranial nerves intact Lungs: Lungs are clear to auscultation bilaterally. There are no rales wheezes or rhonchi. She has normal respiratory effort without use of accessory muscles. There is normal pulmonary excursion. Cardiac: The rhythm was regular. S1 and S2 were normal. There are no murmurs on examination. The PMI was not markedly displaced on palpation. Abdomen: The abdomen was soft and nontender. Extremities: Patient has bilateral radial pulses that are equal in intensity. There is no evidence cyanosis or clubbing. There was no evidence of significant peripheral edema bilaterally. Skin: There are no rashes noted on examination today. Results & Data ([facility]) Vital Signs (Past 12 Hours) Vital Signs Temp Pulse Pulse Resp BP Pulse Ox 10/30/21 15:25 36.4 C L 97 H 18 125/70 95 10/30/21 11:33 36.6 C 95 H 18 133/71 95 10/30/21 07:00 84 10/30/21 06:52 36.7 C 76 18 108/71 96 Laboratory Results Abnormal Lab Results 10/29/21 10/30/21 15:50 07:34 Sodium 139 Potassium 4.0 Chloride 108 H Carbon Dioxide 25 Anion Gap 6 BUN 20 Creatinine 0.75 Est Cr Clr Drug Dosing 59.6 Est GFR ( Amer) 89.7 Est GFR (Non-Af Amer) 77.4 BUN/Creatinine Ratio 26.7 H Glucose 80 Calcium 8.1 L Magnesium 1.8 SARS-CoV-2, RNA, NAAT NEGATIVE Diagnostic Findings Echocardiogram performed 10/29/2021: Ejection fraction 35-40%. Mild to moderate aortic regurgitation. Moderate mitral regurgitation. Small andrea cardial effusion. Chest x-ray obtained the time of admission revealed cardiomegaly and emphysema with pulmonary vascular congestion. Chest CT was obtained on 10/27/2021: Moderate bilateral pleural effusions. Emphysema with interstitial markings. Small pericardial effusion. ECG Additional Comments: EKG revealed sinus tachycardia with a single PVC. Nonspecific ST and T-wave changes. PG Care Time/CCT Total # of Minutes Spent Total Time Spent with Patient: Total time spent is greater than 50% in coordination of care (as documented) at patient's floor/unit and/or counseling patient: Coding Level of Care Code 41474 Initial Inpt Care Lvl 3 Diagnoses CHF (congestive heart failure) I50.21 Heart failure chronicity: acute Heart failure type: systolic Effusion, pericardium I31.3 Breath shortness R06.02 Chest pain R07.9 Chest pain type: unspecified Valvular heart disease I38 (1) CHF (congestive heart failure) Heart failure chronicity: acute Heart failure type: systolic Qualified Code(s): I50.21 - Acute systolic (congestive) heart failure (2) Chest pain Chest pain type: unspecified Qualified Code(s): R07.9 - Chest pain, unspecified
[2021-10-31] MEDS: LEVOTHYROXINE SODIUM 75 MCG TABLET PO SCH (06:09)
[2021-10-31 06:36] LABS: Basophils # (auto) 0.02 K/uL (0-0.2); Basophils % (auto) 0.4 %; Eosinophils # (auto) 0.08 K/uL (0-0.5); Eosinophils % (auto) 1.7 %; Hematocrit (blood only) 29.6 % (37-47); Hemoglobin 9.5 g/dL (12.0-16.0); Immature Granulocytes # (auto) 0.02 K/uL (0.00-0.02); Immature Granulocytes % (auto) 0.4 %; Lymphocytes # (auto) 1.38 K/uL (1.2-3.4); Lymphocytes % (auto) 29.4 %; Mean Corpuscular Hemoglobin 31.3 pg (25-34); Mean Corpuscular Hgb Conc 32.1 g/dL (32-36); Mean Corpuscular Volume 97.4 fL (80-100); Mean Platelet Volume 9.9 fL (7.4-10.4); Monocytes % (auto) 14.9 %; Neutrophils # (auto) 2.49 K/uL (1.4-6.5); Neutrophils % (auto) 53.2 %; Platelet Count 211 K/uL (130-400); RDW Coefficient of Variation 21.6 % (11.5-14.5); RDW Standard Deviation 77.3 fL (36.4-46.3); Red Blood Count 3.04 M/uL (4.2-5.4); White Blood Count 4.69 K/uL (4.8-10.8)
[2021-10-31 07:07] LABS: Calcium 8.4 mg/dl (8.5-10.1); Creatinine Clr Calc Pharmacy 53.7 ml/min; Est GFR (African American) 86.9 ml/min; Magnesium 1.6 mg/dl (1.7-2.4); Potassium 3.4 mmol/L (3.5-5.1)
[2021-10-31 07:54] VITALS: O2SAT 93
[2021-10-31] MEDS ORDERED: POTASSIUM CHLORIDE CRTAB 20 MEQ TABCR PO STA (07:58)
[2021-10-31] MEDS: MAGNESIUM SULFATE / D5W 1 GM/100 ML BAG IV SCH ×2 (08:30→11:21)
[2021-10-31] MEDS: APIXABAN 5 MG TABLET PO SCH (08:33)
[2021-10-31] MEDS: MULTIVITAMIN TAB PO SCH (08:34)
[2021-10-31] MEDS: DOCUSATE SODIUM/SENNA 50/8.6MG TAB PO SCH (08:34)
[2021-10-31] MEDS: ESCITALOPRAM OXALATE 10 MG TAB PO SCH (08:34)
[2021-10-31] MEDS ORDERED: FUROSEMIDE 40 MG TAB PO SCH (09:00)
[2021-10-31] MEDS ORDERED: FUROSEMIDE 20 MG TAB PO SCH (09:00)
[2021-10-31] MEDS ORDERED: METOPROLOL SUCC 25MG EXT REL TAB PO SCH (09:00)
--- NOTE | 2021-10-31 12:18 | Discharge Summary ---
Date of Service October 31, 2021 Admission HPI Per Admitting Provider Carey Miller is a 76 year old with 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 She reports this has slowly been getting worse but appeared to be much worse over the last 2 days. Significant associated orthopnea adn leg swelling. No chest pain, claudication of palpitations. She was notably admitted from October 11 - 2021 due to chest pain. At that time her chest pain was thought to be more musculoskeletal or anxiety related. She was noted to be mildly hypervolemic on that occasion in addition however and was given Lasix 40mg IV during the admission. She was not however discharged on Lasix. She has no known history fo a heart attack. In the ER she is on room air. CXR concerning for congestive failure. She was given Lasix 40mg IV and referred to medicine for admission and ongoing management of new onset CHF. Admission Exam Per Admitting Provider Constitutional: WD/WN, vitals as above no acute distress Eyes: PERRL, conjunctivae normal, anicteric sclerae ENMT: external ear and nose normal, oropharynx normal Neck: trachea midline, no thyromegaly Respiratory: normal respiratory effort; no respiratory distress Auscultation: + crackles (biabsal); no diminished lung sounds, no rales, no rhonchi and no wheezes Cardiovascular: Rate/Rhythm: regular rate and regular rhythm Heart Sounds: no murmur Vessels: + JVD Extremities: normal capillary refill and + pedal edema (1+ pre-tibial b/l equal); no calf tenderness Gastrointestinal (Abdomen): normal bowel sounds, soft, nontender, no hepatosplenomegaly Musculoskeletal: no cyanosis or clubbing, extremities motor strength 5/5 Skin: no rashes, warm and dry Neurologic: moves all extremities and awake; not confused Psychiatric: A+Ox3, euthymic affect Genitourinary: no CVA tenderness Principal Diagnosis systolic congestive heart failure Discharge Exam Constitutional resting comfortably in bed, no acute distress Respiratory normal respiratory effort, clear to auscultation bilaterally Cardiovascular RRR no MRG appreciated Gastrointestinal (Abdomen) soft and nontender Skin warm and dry Neurologic A&Ox3 Discharge Data Allergies Allergy/AdvReac Type Severity Reaction Status Date / Time No Known Allergies Allergy Verified 10/29/21 14:41 Consultations 10/29/21 13:42 ED Decision to Admit Stat 10/30/21 07:45 Consult Cardiology Routine Ordered Studies 10/29/21 11:38 US venous doppler LE LT Stat Hospital Course (1) Valvular heart disease: (2) CHF (congestive heart failure): (3) Hypothyroidism (acquired): (4) Endometrial adenocarcinoma: (5) Breath shortness: Carey Miller was admitted to the hospital after 2 days of new shortness of breath at rest and left leg swelling. Chest x-ray showed bilateral pleural effusions, echo showed an EF of 35-40% without segmental hypokinesis, and no DVT was seen on lower extremity doppler. Cardiology was consulted and confirmed diagnosis of new onset systolic congestive heart failure. The patient was diuresed with IV lasix and will be transitioned to lasix 20mg PO outpatient. Metoprolol succinate 25mg PO QAM was started and will be continued outpatient. Recommend sodium restriction. Continue all home medications. Recommend follow-up with cardiology outpatient and referral to palliative care outpatient with Dr. Arrieta. Appointment scheduled with Dr. Ellis on WednesdayNovember 03 to discuss cancer prognosis and chemotherapy options. Total Time Total Time Spent Total Time Spent (In Minutes): see attending attestation Discharge Plan Discharge Items Patient Disposition: Home - Self-Care Reason For Visit: PULMONARY EDEMA Discharge Diagnosis: congestive heart failure Activity: Per Instructions section Non-emergency contact: Primary Care Provider, Locker Room Supervisor and Oncologist Call non-emergency contact if: you have any medication questions and your symptoms worsen Follow-up/Referrals: Lucinda Smith MD [Primary Care Provider] - April Arrieta MD [Outside Practitioners] - Diet: Low Sodium (2gm) Addtl Attending Provider Instructions: Call your Primary Care doctor if any of the following symptoms or problems start or get worse: * Shortness of breath or difficulty breathing * Wake up at night short of breath * Chest pain * Cough * Swelling of your hands, feet, or legs * More fatigued or tired with your normal activity * Palpitations - sudden fast heart beats WEIGHT * Weigh yourself every morning after using the bathroom. * Use the same scale. * Wear the same amount of clothing. * Write your weight down on a chart. * Call your Primary Care doctor if you gain more than 2-3 pounds in 1-2 days. MEDICATIONS * Use this discharge instruction sheet for medication instructions. * Take your medications at the time your doctor ordered. * Do not skip a dose of your medicines. * If you miss a dose of medicine, take it as soon as possible, but DO NOT DOUBLE A DOSE. * Read your medicine information when you get home. * Know all of the side effects of your medicine. If in doubt, ask your pharmacist * Call your Primary Care doctor's office if you have any side effects. * Be sure all of your doctors know what medicine and herbs you take (including cold, flu, and herbal medicine). Take the following with you to your follow-up doctor appointments: * Weight Chart * Medication List * List of questions Do not drink excessive alcohol, beer or wine. We are having you set up to see Dr. Arrieta to continue discussions regarding maintaining your comfort and ensure that your goals and desires for your remaini ng time are respected and clearly outlined. Pending Studies at Discharge: No Stand-Alone Forms: My [facility] Oscar, Smoking Cessation Medications and DC Order Prescriptions: New metoprolol succinate 25 mg Tablet Extended Release 24 Hr 25 mg PO QAM 30 Days Qty: 30 RF: 0 furosemide 20 mg Tablet 20 mg PO QAM 30 Days Qty: 30 RF: 0 Continued multivitamin Tablet 1 tab PO QAM RF: 0 Eliquis 5 mg tablet 5 mg PO BID RF: 0 acetaminophen 325 mg Tablet 650 mg PO Q4 MDD 3g PRN (Reason: pain level 1-5) RF: 0 levothyroxine [Synthroid] 75 mcg Tablet 75 mcg PO DAILYBB Qty: 30 RF: 0 escitalopram oxalate 10 mg Tablet 10 mg PO QAM Qty: 30 RF: 0 fluticasone propionate [Flonase Allergy Relief] 50 mcg/actuation spray,suspension 2 spray intranasal .EVERY 24 HOURS PRN (Reason: allergies) RF: 0 sennosides-docusate sodium [Senokot-S] 8.6-50 mg Tablet 1 tab PO QAM Qty: 30 RF: 0 Discharge Orders: Discharge Order (Routine); Ordered 10/31/21 Ordered By: Chago Solis Admission Data Admit Date/Time: 10/29/21 14:53 Attending Provider: Derke Cevallos Admit Provider: Seymour Phillips Primary Care Provider: Lucinda Smith Other Providers: Seymour Phillips ; Valente Barnhart Other Interventions: Discharge Summary Assessment (RN) Last Done: 10/31/21 13:31 Supervising Physician Co-Signing Physician Notes Pt seen and examined in concert with Dr. Solis, . Dr. Loya. In agreement with the documented findings as noted in the student/resident documentation with any exceptions or additions as noted here. Dyspnea has resolved. She would like to go home. She is interested in discussing palliative care services with [facility] palliative team in conjuction with having some clarity around her prognosis from her oncologist. V/S reviewed. On examination, S1/S2 nl RRR no MCG. CTAB. Abd NT/ND BS+ve. Trace b/l LE edema to the midshin. HFrEF - newly appreciated reduced global function without bellweather event. Possibly secondary to Lenvima. Cardiology consult - continue diuresis oral lasix 20mg, started metoprolol. Can add additional HF medications as an outpatient as her blood pressure tolerates. Metastatic endometrial adenocarcenoma to the brain, lungs - established with Dr. Buenrostro. Unknown prior discussion re: goals of care and impact of metastatic diagnosis to be reviewed gradually during admission. She expressed interest in meeting with palliative team at [facility]--contact information included in discharge paperwork. Dispo: discharge home today. I personally spent 30 minute discharge planning for this patient.
[2021-10-31 13:19] VITALS: BP 116/69; TEMP 98.2
[2021-10-31 13:33] VITALS: PULSE 96
--- NOTE | 2021-10-31 14:31 | Cardiology Progress Note ---
Date of Service October 31, 2021 Assessment & Plan (1) CHF (congestive heart failure): (2) Effusion, pericardium: (3) Breath shortness: (4) Chest pain: (5) Valvular heart disease: Plan: 1. Shortness of breath: Resolved. Likely due to pulmonary vascular congestion. She seems to have affected a good diuresis although there is not much of a record of urine output. She would likely benefit from being placed on a small dose of diuretic at the time of discharge. 2. Left ventricular systolic failure: Most likely related to her chemotherapy. No way to definitively make the diagnosis. Did discuss the potential for evaluation of ischemic heart disease. However, she does not manifest symptoms of coronary disease and at this point not interested in additional interventions. I think we will attempt to optimize medical therapy over time. Starting with metoprolol succinate. 3. Valvular heart disease: His aortic and mitral valve disease. 4. Pericardial effusion: Small. Most likely related to her malignancy. No evidence of hemodynamic compromise Admission and Anticipated Discharge Date Admission Date: October 29, 2021 Subjective The patient is feeling well. Her breathing has returned to normal. She has been ambulatory around her room without significant limitation. She is able to sleep flat last night. Review of Systems Review of Systems: Per HPI Physical Exam Physical Exam: She is alert and oriented x3. Mood affect appear normal. She answered all questions appropriately. HEENT: Sclerae are anicteric. Pupils are equal and reactive to light and accommodation. Extraocular movements were intact. Neuro: Cranial nerves intact Lungs: Normal respiratory effort Results & Data ([facility]) Vital Signs (Past 12 Hours) Vital Signs Temp Pulse Pulse Pulse Resp BP BP 10/31/21 13:31 36.8 C 96 H 97 H 16 116/66 116/69 10/31/21 13:18 36.8 C 97 H 16 116/69 10/31/21 07:53 36.3 C L 89 16 116/66 10/31/21 07:22 93 H 10/31/21 04:12 36.9 C 84 18 112/61 Pulse Ox 10/31/21 13:31 93 10/31/21 13:18 93 10/31/21 07:53 93 10/31/21 07:22 10/31/21 04:12 95 Laboratory Results Abnormal Lab Results 10/30/21 10/31/21 10/31/21 07:34 05:37 05:37 WBC 4.69 L RBC 3.04 L Hgb 9.5 L Hct 29.6 L MCV 97.4 MCH 31.3 MCHC 32.1 RDW Std Deviation 77.3 H RDW Coeff of Colleen 21.6 H Plt Count 211 MPV 9.9 Immature Gran % (Auto) 0.4 Neut % (Auto) 53.2 Lymph % (Auto) 29.4 Crook % (Auto) 14.9 Eos % (Auto) 1.7 Baso % (Auto) 0.4 Neut # (Auto) 2.49 Lymph # (Auto) 1.38 Crook # (Auto) 0.70 H Eos # (Auto) 0.08 Baso # (Auto) 0.02 Immature Gran # (Auto) 0.02 Sodium 139 Potassium 3.4 L Chloride 105 Carbon Dioxide 28 Anion Gap 6 BUN 20 Creatinine 0.77 Est Cr Clr Drug Dosing 53.7 Est GFR ( Amer) 86.9 Est GFR (Non-Af Amer) 75.0 BUN/Creatinine Ratio 26.0 H Glucose 83 Calcium 8.4 L Magnesium 1.6 L Hepatitis C Ab (EIA) NON-REACTIVE Hep C Ab Signal/Cutoff 0.00 PG Care Time/CCT Total # of Minutes Spent Total Time Spent with Patient: Total time spent is greater than 50% in coordination of care (as documented) at patient's floor/unit and/or counseling patient: Coding Level of Care Code 56791 Subseq Obs Care Lvl 2 Diagnoses CHF (congestive heart failure) I50.21 Heart failure chronicity: acute Heart failure type: systolic Effusion, pericardium I31.3 Breath shortness R06.02 Chest pain R07.9 Chest pain type: unspecified Valvular heart disease I38 (1) CHF (congestive heart failure) Heart failure chronicity: acute Heart failure type: systolic Qualified Code(s): I50.21 - Acute systolic (congestive) heart failure (2) Chest pain Chest pain type: unspecified Qualified Code(s): R07.9 - Chest pain, unspecified
== END 2021-10-31 15:18 | disposition home or self-care (01) ==
LOC: ED 10:27 → 2N 10:27 → SUATTDRO 14:53 → 2N 18:09
DX: Z87.891 Personal history of nicotine dependence; Z86.711 Personal history of pulmonary embolism; I35.9 Nonrheumatic aortic valve disorder, unspecified; E83.42 Hypomagnesemia; Z79.890 Hormone replacement therapy; C54.1 Malignant neoplasm of endometrium; R06.02 Shortness of breath; Z79.01 Long term (current) use of anticoagulants; E03.9 Hypothyroidism, unspecified; J91.8 Pleural effusion in other conditions classified elsewhere